=== PATIENT | male | born 1935 | race Caucasian/White ===

== ENCOUNTER 2020-04-08 17:37 | Emergency (ER) | payer MEDICARE, OTHER, SELFPAY ==
--- NOTE | ~2020-04-08 | XR_ITS ---
EXAMINATION: XR chest 1V portable EXAM DATE: 04/08/2020 19:17 INDICATION: Thinks chicken is stuck in throat. TECHNIQUE: Portable AP frontal chest x-ray was obtained. Comparison is made to prior examination from 08/18/2018. FINDINGS: There is mild cardiomegaly. Bibasilar linear atelectasis. No confluent consolidation, pneum othorax or pleural effusion suspected. There are bony degenerative changes. Accounting for difference s in technique, there is no significant interval change. IMPRESSION: Cardiomegaly. Bibasilar linear atelectasis. Reviewed, dictated and finalized at location A.
[2020-04-08 17:40] VITALS: BP 140/78; PULSE 70; RESP 20; TEMP 36.6; O2SAT 100
--- NOTE | 2020-04-08 18:56 | ECG_ITS ---
Measurements Intervals [place] Rate: 66 P: MT: 0 QRS: 9 QRSD: 102 T: 70 QT: 379 QTc: 398 Interpretive Statements ATRIAL FIBRILLATION BASELINE ARTIFACT- I, II, III, AVR, AVL, AVF ABNORMAL ECG Electronically Signed On 04-09-2020 7:31:09 CDT by Modesto Sagastume D.O.
--- NOTE | 2020-04-08 18:58 | ED.GENADULT ---
HPI - General Adult General Chief complaint: Unspecified <Briana Serrato MD - Last Filed: 04/08/20 19:30> Stated complaint: fb gi <Briana Serrato MD - Last Filed: 04/08/20 19:30> Time Seen by Provider: 04/08/20 18:47 <Briana Serrato MD - Last Filed: 04/08/20 19:30> Source: patient <Briana Serrato MD - Last Filed: 04/08/20 19:30> Mode of arrival: ambulatory <Briana Serrato MD - Last Filed: 04/08/20 19:30> Limitations: no limitations <Briana Serrato MD - Last Filed: 04/08/20 19:30> History of Present Illness HPI narrative: This patient is an 84 year old male who presents for evaluation of a food impaction.He states starting an 1.5 hour ago he was eating chicken and he started feeling like it was stuck. He reports he tried drinking water and milk, and he started vomiting. He reports he is spitting alot. He states this happened 2 years ago he was given a medication to relax his esophagus. He has history of an esophageal sphincter. He is also on coumadin. He denies sob but he does some discomfort epigastric mid chest. <Briana Serrato MD - Last Filed: 04/08/20 19:30> Related Data Home medications: Home Medications Medication Instructions Recorded Confirmed multivitamin 1 tablet PO DAILY 07/10/19 07/14/19 <Briana Serrato MD - Last Filed: 04/08/20 19:30> Allergies/adverse reactions: Allergies Allergy/AdvReac Type Severity Reaction Status Date / Time No Known Allergies Allergy Verified 01/12/20 09:15 <Briana Serrato MD - Last Filed: 04/08/20 19:30> Review of Systems Review of Systems: All systems reviewed & are unremarkable except as noted in HPI and below <Briana Serrato MD - Last Filed: 04/08/20 19:30> Constitutional: Constitutional: Denies chills and Denies fever(s) <Briana Serrato MD - Last Filed: 04/08/20 19:30> Respiratory: Respiratory: Denies cough and Denies dyspnea <Briana Serrato MD - Last Filed: 04/08/20 19:30> Gastrointestinal: Gastrointestinal: Reports nausea and Reports vomiting <Briana Serrato MD - Last Filed: 04/08/20 19:30> [facility] Past Medical History Medical History: Medical History (Updated 04/09/20 @ 00:00 by Randolph Cronin) Hyperlipidemia Paroxysmal atrial fibrillation Stage III chronic kidney disease <Briana Serrato MD - Last Filed: 04/08/20 19:30> Surgical History Surgical History: Surgical History (Reviewed 01/12/20 @ 09:16 by Azucena Mae [facility]) H/O colonoscopy H/O rectal polypectomy History of removal of skin mole <Briana Serrato MD - Last Filed: 04/08/20 19:30> Family History Family History: Family History (Reviewed 01/12/20 @ 09:16 by Azucena Mae [facility]) Father Family history of malignant neoplasm of bone Patient's father is Mother Family history of dementia Patient's mother is , Onset Age: 91 Other Family history of arthritis <Briana Serrato MD - Last Filed: 04/08/20 19:30> Social History Social History: Social History (Reviewed 01/12/20 @ 09:16 by Azucena Mae [facility]) Smoking status: Never smoker Alcohol intake: current Gender identity (if verbalized by the patient): Male <Briana Serrato MD - Last Filed: 04/08/20 19:30> Exam Const: General: alert <Briana Serrato MD - Last Filed: 04/08/20 19:30> Nutritional Appearance: thin <Briana Serrato MD - Last Filed: 04/08/20 19:30> Orientation/consciousness: patient oriented x3 <Briana Serrato MD - Last Filed: 04/08/20 19:30> HENMT: General nose exam: Normal nasal mucous membranes and turbinates present <Briana Serrato MD - Last Filed: 04/08/20 19:30> Face and sinus: face symmetric <Briana Serrato MD - Last Filed: 04/08/20 19:30> Mouth: Yes moist mucous membranes <Briana Serrato MD - Last Filed: 04/08/20 19:30> Throat: posterior oropharynx normal, tonsils normal and uvula midline <Briana Serrato
[2020-04-08] MEDS: ONDANSETRON INJ 4 MG/2 ML VIAL IV PUSH (19:19)
[2020-04-08] MEDS: GLUCAGON FOR INJ 1 MG VIAL IV PUSH (19:20)
[2020-04-08 19:37] LABS: Basophils Absolute Auto 0.1 K/mm3 (0.0-0.1); Basophils Percent Auto 0.8 % (0.2-1.2); Eosinophils Absolute Auto 0.2 K/mm3 (0-0.3); Eosinophils Percent Auto 2.1 % (0-4.4); Hematocrit 47.7 % (42.0-52.0); Hemoglobin 16.1 g/dL (14.0-18.0); Immature Granulocyte Absolute 0.04 K/mm3 (0.00-0.031); Immature Granulocyte Percent A 0.4 % (0-0.5); Lymphocytes Absolute Auto 1.28 K/mm3 (0.9-3.2); Lymphocytes Percent Auto 11.8 % (18.3-44.2); Mean Corpuscular HGB Conc 33.8 g/dl (32-36); Mean Corpuscular Hemoglobin 30.1 pg (26-34); Mean Corpuscular Volume 89.2 fl (80-100); Mean Platelet Volume 9.2 fl (7.4-10.4); Monocytes Absolute Auto 0.7 K/mm3 (0.1-0.6); Monocytes Percent Auto 6.6 % (2.6-8.5); Neutrophils Absolute Auto 8.5 K/mm3 (1.3-6.7); Neutrophils Percent Auto 78.3 % (45.5-73.1); Platelet Count Result 276 k/mm3 (150-375); Red Blood Count 5.35 M/mm3 (4.6-6.20); Red Cell Distribution Width 12.8 % (11.5-14.5); White Blood Count 10.9 K/mm3 (4.5-10.0)
[2020-04-08 19:47] LABS: INR 2.9; Prothrombin Time 29.7 Seconds (11.1-14.7)
[2020-04-08 19:48] LABS: Alanine Aminotransferase 25 U/L (4-50); Albumin Level 4.4 g/dL (3.5-5.1); Alkaline Phosphatase 91 U/L (38-126); Anion Gap 8 mmol/L (8-16); Aspartate Amino Transferase 27 U/L (17-59); Bilirubin,Total 0.6 mg/dL (0.2-1.3); Blood Urea Nitrogen 20 mg/dL (9-20); Calcium 10.1 mg/dL (8.4-10.2); Carbon Dioxide 25 mmol/L (22-30); Chloride 106 mmol/L (98-107); Estimated CRCL calculation 44 ml/min; Estimated Glomerular Filt Rate > 60; Glucose 118 mg/dL (75-110); Partial Thromboplastin Time 39.6 SECONDS (22.3-36.8); Potassium 4.3 mmol/L (3.4-5.0); Sodium 139 mmol/L (137-145)
[2020-04-08 21:13] VITALS: BP 151/76; PULSE 85; RESP 18; O2SAT 97
== END 2020-04-08 21:15 | disposition home or self-care (01) ==
PROVIDERS: General Practice; Emergency Provider Emergency Medicine; PCP Internal Medicine
DX: T18.128A Food in esophagus causing other injury, initial encounter (principal); E78.5 Hyperlipidemia, unspecified; I48.0 Paroxysmal atrial fibrillation; Z79.01 Long term (current) use of anticoagulants; N18.30 Chronic kidney disease, stage 3 unspecified; Z87.19 Personal history of other diseases of the digestive system
CPT/HCPCS: 36415; 71045; 80053; 85025; 85610; 85730; 93005; 96374; 96375; 99284; J1610; J2405

== ENCOUNTER 2020-06-11 01:21 | Outpatient (CLI) | payer MEDICARE, OTHER, SELFPAY ==
[2020-06-11 20:16] LABS: SARS-CoV-2 RNA PCR Negative
== END 2020-06-11 01:22 | disposition home or self-care (01) ==
LOC: ANHCOVIDDT 01:21
PROVIDERS: PCP Internal Medicine; Visit Provider Internal Medicine Gastroenterology
DX: Z01.818 Encounter for other preprocedural examination (principal); Z20.828 Contact with and (suspected) exposure to other viral communicable diseases
CPT/HCPCS: 87635; C9803; U0003

== ENCOUNTER 2020-06-14 01:51 | Day surgery (SDC) | payer MEDICARE, OTHER, SELFPAY ==
[2020-06-08 11:51] VITALS: BMI 23.4
[2020-06-14 08:43] VITALS: BP 136/85; PULSE 80; RESP 16; TEMP 36.2; O2SAT 100
[2020-06-14] MEDS: LACTATED RINGERS 1,000 ML 150 ML IV CONT (09:01)
--- NOTE | 2020-06-14 09:06 | WPDGICN ---
Assessment and Plan Assessment and plan (1) Dysphagia: Code(s): R13.10 - Dysphagia, unspecified Status: Acute Assessment and Plan: Patient has difficulty swallowing intermittently. Recently went to the ER with food impaction. He has a history of esophageal stricture requiring dilatation 1-2 years ago. Plan is for soft diet. Anti-reflux measures EGD will be performed. If it is confirmed to be secondary to acid reflux restarting proton pump inhibitors may be beneficial. (2) Paroxysmal atrial fibrillation: Code(s): I48.0 - Paroxysmal atrial fibrillation Status: Acute Assessment and Plan: Warfarin anticoagulation will be held in anticipation of endoscopy and dilatation. GI Consult Note Consult date/time: 06/14/20 09:06 HPI: Gregory Garcia is a 84 year old male Seen in evaluation at the request of Dr. Sawyer Iverson. Patient complains of food catching. On April 08 recur went to the ER because of a food impaction. At that time he had difficulty with solid foods. This passed spontaneously. 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 Patient denies any heartburn. He continues to have difficulty swallowing. Proton pump inhibitors were previously suggested but of subsequently been discontinued. Patient denies any weight loss or bleeding. He continues to have difficulty swallowing solid foods intermittently. Past medical history is significant for atrial fibrillation for which she is on warfarin anticoagulation. Review of Systems Review of Systems: All systems reviewed & are unremarkable except as noted in HPI and below PMFSH Past Medical History Medical History (Updated 06/14/20 @ 09:08 by Bryon Cheek MD) Hyperlipidemia Paroxysmal atrial fibrillation Stage III chronic kidney disease Surgical History Surgical History H/O colonoscopy H/O rectal polypectomy History of removal of skin mole Family History Family History Father Family history of malignant neoplasm of bone Patient's father is Mother Family history of dementia Patient's mother is , Onset Age: 91 Other Family history of arthritis Social History Social History Smoking status: Never smoker Alcohol intake: current Drinks per week: 4 Substance use: never Living arrangements: alone Gender identity (if verbalized by the patient): Male Spiritual care concerns: No Meds Home Medications and Allergies Home Medications Medication Instructions Recorded Confirmed Type multivitamin 1 tablet PO DAILY 07/10/19 06/14/20 History warfarin 6 mg tablet See Rx Instructions .ROUTE 04/18/20 06/14/20 Rx .COMPLEX #90 tablet lovastatin 20 mg tablet See Rx Instructions .ROUTE 05/30/20 06/14/20 Rx .COMPLEX #90 tablet Allergies Allergy/AdvReac Type Severity Reaction Status Date / Time No Known Allergies Allergy Verified 06/14/20 08:41 Vital Signs Vital Signs - 24 hr 06/14/20 08:43 Temperature 97.1 F L Pulse Rate 80 Respiratory Rate 16 Blood Pressure 136/85 Pulse Oximetry 100 Exam Narrative: Exam Narrative: physical exam reveals Vital Signs to be stable. HEENT exam unremarkable. Lungs are clear to auscultation and percussion. Heart is without murmur. His irregularly irregular. Abdomen bowel sounds are present soft nontender with no hepatosplenomegaly. Rectal exam is deferred at this time.
[2020-06-14 09:21] LABS: INR 1.1; Prothrombin Time 14.5 Seconds (11.1-14.7)
--- NOTE | 2020-06-14 09:25 | WPDANESEPPF ---
Anes - Initial Pre Proc Eval Procedure: Operation Date: 06/14/20 10:00 Proposed Procedures p Esophagogastroduodenoscopy - Bryon Cheek MD Date/Time: 06/14/20 09:25 Surgeon: Bryon Cheek MD Pre Op Diagnosis: Dysphagia Patient Data Age: 84 Gender: M Height: 5 ft 9 in Weight: 75.7 kg Last Vital Signs Temp 36.2 C L 06/14/20 08:43 Pulse 80 06/14/20 08:43 Resp 16 06/14/20 08:43 BP 136/85 06/14/20 08:43 Pulse Ox 100 06/14/20 08:43 Allergies Allergy/AdvReac Type Severity Reaction Status Date / Time No Known Allergies Allergy Verified 06/14/20 08:41 Home Medications Medication Instructions Recorded Confirmed Type multivitamin 1 tablet PO DAILY 07/10/19 06/14/20 History warfarin 6 mg tablet See Rx Instructions .ROUTE 04/18/20 06/14/20 Rx .COMPLEX #90 tablet lovastatin 20 mg tablet See Rx Instructions .ROUTE 05/30/20 06/14/20 Rx .COMPLEX #90 tablet Laboratory Tests 06/14/20 08:58 PT 14.5 Seconds Seconds (11.1-14.7) INR 1.1 Patient hx anesthesia problems: none Family hx anesthesia problems: none PMFSH Past Medical History Medical History Hyperlipidemia Paroxysmal atrial fibrillation Stage III chronic kidney disease Surgical History Surgical History H/O colonoscopy H/O rectal polypectomy History of removal of skin mole Family History Family History Father Family history of malignant neoplasm of bone Patient's father is Mother Family history of dementia Patient's mother is , Onset Age: 91 Other Family history of arthritis Social History Social History Smoking status: Never smoker Alcohol intake: current Drinks per week: 4 Substance use: never Living arrangements: alone Gender identity (if verbalized by the patient): Male Spiritual care concerns: No Anes - Eval Final PreProcedure Day of Procedure 06/14/20 09:25 Patient weight: normal Heart: irregular rhythm Lungs: clear to auscultation Airway: Mallampati scale class II Neurological: alert and oriented Last oral intake: >/= 8 hours ASA classification: III Emergent: no Anesthetic plan: proceed Anesthesia type and monitoring: general GIVS and standard monitoring Informed Consent: The patient's anesthetic plan and its attendant risks and benefits were discussed with the patient/family/POA. Questions were solicited and answers provided to the satisfaction of the patient/family/POA.
[2020-06-14] MEDS: BENZOCAINE (*SP) 60 ML SPRAY CAN (HURRICAINE) 1 SPRAY MUCOUS MEM (09:40)
[2020-06-14 09:50] VITALS: BP 127/68; PULSE 84; RESP 22; O2SAT 95
[2020-06-14 10:00] VITALS: BP 138/70; PULSE 86; RESP 25; O2SAT 100
[2020-06-14 10:10] VITALS: BP 135/68; PULSE 73; RESP 21; O2SAT 100
== END 2020-06-14 10:35 | disposition home or self-care (01) ==
PROVIDERS: PCP Internal Medicine; Visit Provider Internal Medicine Gastroenterology
PROC: 0DJ08ZZ Inspection of Upper Intestinal Tract, Via Natural or Artificial Opening Endoscopic (ICD-10-PCS; CPT 43235; principal; 2020-06-14 10:00)
DX: R13.10 Dysphagia, unspecified (principal); K21.00 Gastro-esophageal reflux disease with esophagitis, without bleeding; K22.2 Esophageal obstruction; Q39.4 Esophageal web; I48.0 Paroxysmal atrial fibrillation; Z79.01 Long term (current) use of anticoagulants; E78.5 Hyperlipidemia, unspecified; I48.91 Unspecified atrial fibrillation; N18.30 Chronic kidney disease, stage 3 unspecified
CPT/HCPCS: 43450; 43235; 36415; 85610; J2704; J7120

== ENCOUNTER 2022-11-27 09:15 | Outpatient (CLI) | payer MEDICARE, OTHER, SELFPAY ==
[2022-11-27 09:45] LABS: INR 1.4; Prothrombin Time 18.2 Seconds (11.1-14.7)
== END 2022-11-27 09:16 | disposition home or self-care (01) ==
PROVIDERS: PCP Family Medicine; Visit Provider Family Medicine
DX: Z79.01 Long term (current) use of anticoagulants (principal)
CPT/HCPCS: 36415; 85610

== ENCOUNTER 2024-04-14 08:13 | Outpatient (CLI) | payer MEDICARE, OTHER, SELFPAY | END 2024-04-14 08:14 | disposition home or self-care (01) | PROVIDERS: PCP Nurse Practitioner Family; Visit Provider Otolaryngology | DX: H61.23 Impacted cerumen, bilateral (principal); J31.0 Chronic rhinitis; H90.3 Sensorineural hearing loss, bilateral | CPT/HCPCS: 92557; 92567 ==

== ENCOUNTER 2024-09-29 16:34 | Emergency (ER) | payer MEDICARE, OTHER, SELFPAY ==
--- NOTE | ~2024-09-29 | CT_ITS ---
History: Fall PROCEDURE: CT head without contrast. COMPARISON: None TECHNIQUE: Axial imaging of the head performed from the skull base to the vertex without IV contrast. Sagittal a nd coronal reformations obtained. DLP: 681 mGy-cm FINDINGS: The ventricles are enlarged. The dilatation of the ventricles is proportional to the degree of sulcal prominence, not uncommon in the senescent brain. Decreased attenuation is identified within the periventricular white matter, likely secondary to micr ovascular ischemic disease, in a patient of this age. There is no mass, mass effect or midline shift. There is no abnormal extra-axial fluid collection or intracranial hemorrhage. Visualized paranasal sinuses are clear. The mastoid air cells are well aerated. No acute displaced fractures within the overlying cranium. Impression: No acute intracranial hemorrhage or suspicious mass effect. Reviewed, dictated and finalized at location A. Impression: No acute intracranial hemorrhage or suspicious mass effect.
--- NOTE | ~2024-09-29 | XR_ITS ---
HISTORY: injury COMPARISON: None TECHNIQUE: 3 views of the left hand were performed. FINDINGS: No acute fracture is identified. Gullwing deformity is identified within the proximal interphalangeal joint spaces of the second, thir d, fourth and fifth digits. The remaining joint spaces are otherwise preserved. The carpal arcs are intact. Mild radiocarpal joint space narrowing with sclerosis of the distal radius is present. Bony demineralization is age-appropriate. No significant soft tissue swelling. No radiopaque foreign body is identified. 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 Reviewed, dictated and finalized at location A. IMPRESSION: Degenerative disease, without acute fracture or dislocation within the left mathew d, as detailed above.
--- NOTE | ~2024-09-29 | XR_ITS ---
HISTORY: pt fell this afternoon COMPARISON: None TECHNIQUE: 3 views of the right elbow were performed. FINDINGS: No acute fracture is identified. No elevation of the anterior or posterior fat pads are identified to suggest a supracondylar fracture . Overlying soft tissues are unremarkable. Bone mineralization is age-appropriate. IMPRESSION: No acute displaced fracture or dislocation. Reviewed, dictated and finalized at location A.
--- NOTE | ~2024-09-29 | CT_ITS ---
History: Fall PROCEDURE: CT cervical spine without intravenous contrast. COMPARISON: None TECHNIQUE: Multiple contiguous axial images of the cervical spine were performed without the administration of i ntravenous contrast. DLP: 152 mGy-cm FINDINGS: Preservation of the normal curvature of the cervical spine is identified. Significant degenerative disease is identified, with osteophyte formation, disc space narrowing, face t arthropathy and vacuum phenomena. Heterogeneous appearance of the bone marrow is identified, suggesting diffuse systemic disease for wh ich clinical correlation is needed. No acute fractures are present. Right-sided pleural effusion is noted. No soft tissue abnormality is present. The airway is patent. Impression: Severe degenerative disease, without acute fracture. Heterogeneous appearance of the bone marrow suggesting a systemic disorder. Right-sided pleural effusion is noted. Reviewed, dictated and finalized at location A. Impression: Severe degenerative disease, without acute fracture. Heterogeneous appearance of the bone marrow suggesting a systemic disorder. Right-sided pleural effusion is noted.
--- NOTE | 2024-09-29 17:33 | ED.GENADULT ---
HPI - General Adult General Chief complaint: Fall <Ant Leyva MD - Last Filed: 09/30/24 07:31> Stated complaint: fall, takes blood thinner <Ant Leyva MD - Last Filed: 09/30/24 07:31> Time Seen by Provider: 09/29/24 16:47 <Ant Leyva MD - Last Filed: 09/30/24 07:31> History of Present Illness HPI narrative: 88-year-old male present to the emergency department for evaluation after having a ground level fall and increased generalized weakness. Family felt the patient was more confused than normal. Patient does have an abrasion to his left hand and a skin tear to his right elbow. <Ant Leyva MD - Last Filed: 09/30/24 07:31> Related Data Home medications: Home Medications ?Medication ?Instructions ?Recorded ?Confirmed ?Last Taken ?Type multivitamin (Daily Multi-Vitamin 1 tablet PO DAILY 07/10/19 09/02/24 06/13/20 18:00 History tablet) cholecalciferol (vitamin D3) 50 50 mcg PO DAILY 01/18/21 09/02/24 Unknown History mcg (2,000 unit) capsule (Vitamin D3) <Ant Leyva MD - Last Filed: 09/30/24 07:31> Allergies/adverse reactions: Allergies Allergy/AdvReac Type Severity Reaction Status Date / Time No Known Allergies Allergy Verified 09/29/24 16:35 <Ant Leyva MD - Last Filed: 09/30/24 07:31> Review of Systems Review of Systems: All systems reviewed & are unremarkable except as noted in HPI and below <Ant Leyva MD - Last Filed: 09/30/24 07:31> [facility] Past Medical History Medical History: Medical History Basal cell carcinoma removed 07/2023, right shoulder Hyperlipidemia Paroxysmal atrial fibrillation Stage III chronic kidney disease <Ant Leyva MD - Last Filed: 09/30/24 07:31> Surgical History Surgical History: Surgical History H/O rectal polypectomy H/O colonoscopy History of removal of skin mole <Ant Leyva MD - Last Filed: 09/30/24 07:31> Family History Family History: Family History Father Family history of malignant neoplasm of bone Patient's father is Mother Family history of dementia Patient's mother is , Onset Age: 91 Other Family history of arthritis <Ant Leyva MD - Last Filed: 09/30/24 07:31> Social History Social History: Social History Smoking status: Never smoker Second hand tobacco smoke exposure: Yes Alcohol intake: current Drinks per week: 4 Substance use: never Do You Feel Safe in your Home?: Yes Lack of Transportation: No Current Housing: Decline to Answer Concerned About Future Housing: Decline to Answer Difficulty Paying Gas/Electric Bills: Decline to Answer Difficulty Paying for Meds: Decline to Answer Currently Unemployed: Decline to Answer Difficulty w/ Childcare or Family Care: Decline to Answer Living arrangements: alone Occupation/Education: retired Gender identity (if verbalized by the patient): Male Spiritual care concerns: No Agree to blood products: Yes <Ant Leyva MD - Last Filed: 09/30/24 07:31> Exam Narrative: APPEARANCE: Well appearing, no pain, no distress, well-nourished. HEAD: normocephalic, atraumatic. EYES: PERRLA/EOMI, conjunctivae clear. NOSE: Normal no drainage EARS:TMS clear with good light reflex. THROAT: Pharynx clear, no exudate. NECK: Supple. No adenopathy, no masses. RESPIRATORY: Airway patent, respirations nonlabored. Clear to auscultation bilaterally, no rales, rhonchi, wheezing. CARDIOVASCULAR: Regular rate and rhythm without murmurs rubs or gallops. ABDOMINAL: Soft, nontender, nondistended, normal bowel sounds MUSCULOSKELETAL: Moves all extremities. Strength/ROM intact, No edema, No calf tenderness. NEURO: Alert. Cranial nerves II through XII intact. Grossly intact SKIN: Abrasion to left hand and skin tear to right elbow <Ant Leyva MD - Last Filed: 09/30/24 07:31> Course Course Emergency Course: Patient signed out by Dr. Leyva at 7:00 p.m. pending urinalysis and discharge home. I went and re-evaluated the patient. He was otherwise doing well, not any acute distress, normal vital signs. Does have some skin tears that were bandaged but no other injuries appreciated. Workup by previous provider shows no significant findings on imaging or significant derangements on lab. He normally frequently goes to the bathroom secondary to prostatic issues but did require straight catheterization here. Reportedly some minor resistance, urinalysis does have some red blood cells likely from a traumatic catheterization but there is no signs of white blood cells or any signs of infection with bacteria. Patient denies any urinary complaints and he has a soft nontender belly. Patient was ambulated here in the emergency department with his normal devices including a cane and a walker which he has at home. Patient was doing very well and family felt comfortable with taking him home with close follow-up with his primary care provider. They are already working on physical therapy on outpatient basis and were given return precautions worse they verbalized understanding. Patient safely discharged at this time. <Doroteo Farah MD - Last Filed: 09/29/24 22:24> Vital Signs Vital signs: Vital Signs Blood Pressure 157/78 H 09/29/24 17:35 Pulse Oximetry 98 09/29/24 17:35 Temperature 98.7 F 09/29/24 22:21 Pulse Rate 100 09/29/24 22:21 Respiratory Rate 22 H 09/29/24 22:21 Blood Pressure 145/85 H 09/29/24 22:21 Pulse Oximetry 96 09/29/24 22:21 <Ant Leyva MD - Last Filed: 09/30/24 07:31> Vital Signs Blood Pressure 157/78 H 09/29/24 17:35 Pulse Oximetry 98 09/29/24 17:35 Temperature 98.7 F 09/29/24 22:21 Pulse Rate 100 09/29/24 22:21 Respiratory Rate 22 H 09/29/24 22:21 Blood Pressure 145/85 H 09/29/24 22:21 Pulse Oximetry 96 09/29/24 22:21 <Doroteo Farah MD - Last Filed: 09/29/24 22:24> Medical Decision Making MDM Narrative Medical decision making narrative: 80-year-old male presents emergency department for evaluation after having a ground level fall, family felt that the patient was more confused than typical. Patient is currently afebrile with no leukocytosis and hemoglobin of 12.8. No significant acute abnormalities on the patient's CMP patient was negative for influenza RSV and for COVID. Hand x-ray, although x-ray, cervical spine CT and head CT were negative. At time of sign-out UA is pending. Anticipated disposition is discharge to home if UA is negative and patient is able to ambulate at his baseline. <Ant Leyva MD - Last Filed: 09/30/24 07:31> Vital Signs Vital Signs: Vital Signs Blood Pressure 157/78 H 09/29/24 17:35 Pulse Oximetry 98 09/29/24 17:35 Temperature 98.7 F 09/29/24 22:21 Pulse Rate 100 09/29/24 22:21 Respiratory Rate 22 H 09/29/24 22:21 Blood Pressure 145/85 H 09/29/24 22:21 Pulse Oximetry 96 09/29/24 22:21 <Ant Leyva MD - Last Filed: 09/30/24 07:31> Vital Signs Blood Pressure 157/78 H 09/29/24 17:35 Pulse Oximetry 98 09/29/24 17:35 Temperature 98.7 F 09/29/24 22:21 Pulse Rate 100 09/29/24 22:21 Respiratory Rate 22 H 09/29/24 22:21 Blood Pressure 145/85 H 09/29/24 22:21 Pulse Oximetry 96 09/29/24 22:21 <Dortoeo Farah MD - Last Filed: 09/29/24 22:24> Lab Data Result diagrams: 09/29/24 17:53 09/29/24 17:54 <Ant Leyva MD - Last Filed: 09/30/24 07:31> Labs: Lab Results 09/29/24 09/29/24 09/29/24 Range/Units 17:53 17:54 20:47 WBC 8.3 (4.5-10.0) K/mm3 RBC 4.28 L (4.6-6.20) M/mm3 Hgb 12.8 L D (14.0-18.0) g/dL Hct 40.2 L (42.0-52.0) % MCV 93.9 (80-100) fl MCH 29.9 (26-34) pg MCHC 31.8 L (32-36) g/dl RDW 14.2 (11.5-14.5) % Plt Count 332 (150-375) k/mm3 MPV 9.2 (7.4-10.4) fl Immature Gran % (Auto) 0.5 (0-0.5) % Neut % (Auto) 80.9 H (45.5-73.1) % Lymph % (Auto) 8.8 L (18.3-44.2) % [place] % (Auto) 9.0 H (2.6-8.5) % Eos % (Auto) 0.2 (0-4.4) % Baso % (Auto) 0.6 (0.2-1.2) % Lymph # (Auto) 0.73 L (0.9-3.2) K/mm3 [place] # (Auto) 0.8 H (0.1-0.6) K/mm3 Eos # (Auto) 0.0 (0-0.3) K/mm3 Baso # (Auto) 0.1 (0.0-0.1) K/mm3 Abs Immat Gran (auto) 0.04 H (0.00-0.031) K/mm3 Absolute Neuts (auto) 6.7 (1.3-6.7) K/mm3 Absolute Nucleated RBC 0.000 (0.0-0.012) K/mm3 Nucleated RBC % 0.0 (0.0-0.2) % Sodium 138 (137-145) mmol/L Potassium 4.4 (3.4-5.0) mmol/L Chloride 102 (98-107) mmol/L Carbon Dioxide 24 (22-30) mmol/L Anion Gap 12 (4-12) mmol/L BUN 36 H D (9-20) mg/dL Creatinine 1.35 H (0.7-1.3) mg/dL Estim Creat Clear Calc Not Reportable Estimated GFR 50 L (59 - ) Glucose 82 (65-110) mg/dL Calcium 9.4 (8.4-10.2) mg/dL Total Bilirubin 0.6 (0.2-1.3) mg/dL AST 84 H (17-59) U/L ALT 36 (6-50) U/L Alkaline Phosphatase 91 (38-126) U/L Total Protein 7.0 (6.3-8.2) g/dL Albumin 3.9 (3.5-5.1) g/dL Urine Color Yellow (Yellow) Urine Appearance Cloudy H (Clear) Urine pH 6.5 (5.0-9.0) Ur Specific [place] 1.016 (1.001-1.035) Urine Protein 1+ H (Negative) mg/dL Urine Glucose (UA) Negative (Negative) mg/dL Urine Ketones Negative (Negative) mg/dL Ur Blood (Man) 3+ H (Negative) Urine Nitrate Negative (Negative) Urine Bilirubin Negative (Negative) Urine Urobilinogen 0.2 (<2.0) mg/dL Leukocyte Esterase Rfl Trace H (Negative) ROYA/UL Urine RBC >100 H (0-2) /hpf Urine WBC 0-5 (0-3) /hpf Ur Squamous Epith Cells Occasional (Few) /hpf Urine Bacteria None seen /hpf Urine Casts 0-2 Influenza A (RT-PCR) Negative (Negative) Influenza B (RT-PCR) Negative (Negative) RSV (RT-PCR) Negative (Negative) SARS-CoV-2 RNA (RT-PCR) Negative (Negative) <Ant Leyva MD - Last Filed: 09/30/24 07:31> Lab Results 09/29/24 09/29/24 09/29/24 Range/Units 17:53 17:54 20:47 WBC 8.3 (4.5-10.0) K/mm3 RBC 4.28 L (4.6-6.20) M/mm3 Hgb 12.8 L D (14.0-18.0) g/dL Hct 40.2 L (42.0-52.0) % MCV 93.9 (80-100) fl MCH 29.9 (26-34) pg MCHC 31.8 L (32-36) g/dl RDW 14.2 (11.5-14.5) % Plt Count 332 (150-375) k/mm3 MPV 9.2 (7.4-10.4) fl Immature Gran % (Auto) 0.5 (0-0.5) % Neut % (Auto) 80.9 H (45.5-73.1) % Lymph % (Auto) 8.8 L (18.3-44.2) % [place] % (Auto) 9.0 H (2.6-8.5) % Eos % (Auto) 0.2 (0-4.4) % Baso % (Auto) 0.6 (0.2-1.2) % Lymph # (Auto) 0.73 L (0.9-3.2) K/mm3 [place] # (Auto) 0.8 H (0.1-0.6) K/mm3 Eos # (Auto) 0.0 (0-0.3) K/mm3 Baso # (Auto) 0.1 (0.0-0.1) K/mm3 Abs Immat Gran (auto) 0.04 H (0.00-0.031) K/mm3 Absolute Neuts (auto) 6.7 (1.3-6.7) K/mm3 Absolute Nucleated RBC 0.000 (0.0-0.012) K/mm3 Nucleated RBC % 0.0 (0.0-0.2) % Sodium 138 (137-145) mmol/L Potassium 4.4 (3.4-5.0) mmol/L Chloride 102 (98-107) mmol/L Carbon Dioxide 24 (22-30) mmol/L Anion Gap 12 (4-12) mmol/L BUN 36 H D (9-20) mg/dL Creatinine 1.35 H (0.7-1.3) mg/dL Estim Creat Clear Calc Not Reportable Estimated GFR 50 L (59 - ) Glucose 82 (65-110) mg/dL Calcium 9.4 (8.4-10.2) mg/dL Total Bilirubin 0.6 (0.2-1.3) mg/dL AST 84 H (17-59) U/L ALT 36 (6-50) U/L Alkaline Phosphatase 91 (38-126) U/L Total Protein 7.0 (6.3-8.2) g/dL Albumin 3.9 (3.5-5.1) g/dL Urine Color Yellow (Yellow) Urine Appearance Cloudy H (Clear) Urine pH 6.5 (5.0-9.0) Ur Specific [place] 1.016 (1.001-1.035) Urine Protein 1+ H (Negative) mg/dL Urine Glucose (UA) Negative (Negative) mg/dL Urine Ketones Negative (Negative) mg/dL Ur Blood (Man) 3+ H (Negative) Urine Nitrate Negative (Negative) Urine Bilirubin Negative (Negative) Urine Urobilinogen 0.2 (<2.0) mg/dL Leukocyte Esterase Rfl Trace H (Negative) ROYA/UL Urine RBC >100 H (0-2) /hpf Urine WBC 0-5 (0-3) /hpf Ur Squamous Epith Cells Occasional (Few) /hpf Urine Bacteria None seen /hpf Urine Casts 0-2 Influenza A (RT-PCR) Negative (Negative) Influenza B (RT-PCR) Negative (Negative) RSV (RT-PCR) Negative (Negative) SARS-CoV-2 RNA (RT-PCR) Negative (Negative) <Doroteo Farah MD - Last Filed: 09/29/24 22:24> Discharge Plan Discharge Clinical Impression: Head injury, Skin tear, Abrasion of hand <Ant Leyva MD - Last Filed: 09/30/24 07:31> Patient Disposition: Home, Self-Care <Ant Leyva MD - Last Filed: 09/30/24 07:31> Condition: Stable <Ant Leyva MD - Last Filed: 09/30/24 07:31> Instructions: Antibiotic Form <Ant Leyva MD - Last Filed: 09/30/24 07:31> Patient Language: Kinyarwanda <Ant Leyva MD - Last Filed: 09/30/24 07:31> Prescriptions: No Action omeprazole 40 mg capsule,delayed release(DR/EC) 40 mg PO DAILY Qty: 90 1RF multivitamin [Daily Multi-Vitamin] Tablet 1 tablet PO DAILY cholecalciferol (vitamin D3) [Vitamin D3] 50 mcg (2,000 unit) capsule 50 mcg PO DAILY lovastatin 20 mg tablet See Rx Instructions .ROUTE .COMPLEX Qty: 90 1RF Dose Instruction: TAKE 1 TABLET BY MOUTH EVERY DAY Rx Instructions: TAKE 1 TABLET BY MOUTH EVERY DAY warfarin 6 mg tablet See Rx Instructions .ROUTE .COMPLEX Qty: 90 0RF Dose Instruction: TAKE 1 TABLET BY MOUTH ON MONDAYS, WEDNESDAYS AND FRIDAYS, THEN 1/2 A TABLET ON ALL OTHER DAYS Rx Instructions: TAKE 1 TABLET BY MOUTH ON MONDAYS, WEDNESDAYS AND FRIDAYS, THEN 1/2 A TABLET ON ALL OTHER DAYS <Ant Leyva MD - Last Filed: 09/30/24 07:31> Follow-up/Referrals: Suze Yates APRN [Primary Care Provider] - <Ant Leyva MD - Last Filed: 09/30/24 07:31> Time of Disposition: 22:21 <Ant Leyva MD - Last Filed: 09/30/24 07:31> 22:21 <Doroteo Farah MD - Last Filed: 09/29/24 22:24>
--- OUTSIDE RECORDS SUMMARY | 2024-09-29 17:33 | XMS_ITS | Encounter Summary ---
Author Organization [facility] Address [address] [place] [address] Care Team Providers Care Diamond Die Polisher Name Role Phone Bernabe Casper MD Primary Care Provider [phone] Encounter Details Date Type Department Care Team (Late st Contact Info) Description 04/13/2022 Lab Requisition [facility] Care DermPath Lab [address] [place] [phone] Caesar Robbins MD [facility] [place] [address] Social History Tobacco Use Types Packs/Day Years Used Date Smoking Tobacco: Never Alcohol Use Standard Drinks/Week Comments Yes 5 (1 standard drink = 0.6 oz pur e alcohol) Sex and Gender Information Value Date Recorded Sex Assigned at Not on file Gender Identity Not on file Sexual Orientation Not on file documented as of this encounter Plan of Treatment Not on file documented as of this encounter Procedures Procedure Name Priority Date/Time Associated Diagnosis Comments DERMATOPATHOLOGY Routine 04/12/2022 12:0 0 AM CDT documented in this encounter Results * DERMATOPATHOLOGY (04/12/2022 12:00 AM CDT) Case Report Dermatopathology Report Case: [id number] Authorizing Provider: Caesar Robbins MD Collected: 04/12/2022 12:00 AM Ordering Location: [facility] Lab Received: 04/13/2022 06:08 AM Pathologist: Macarena Horta MD Specimen: Skin, right lateral forehead 1:50 PM CDT DERMATOPATHOLOGY LABORATORY Amended Report Change Site A from right mid forehead to right lateral forehead. 1:50 PM CDT DERMATOPATHOLOGY LABORATORY Final Diagnosis Specimen A. 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 Check margins 1:50 PM CDT DERMATOPATHOLOGY LABORATORY Gross Description Specimen A: Received is one formalin filled container labeled with the patient's name and designated right lateral forehead. The specimen consists of a curettage and desiccation biopsy measuring 10x6x2 mm, inked. Jar 0. 1:50 PM CDT DERMATOPATHOLOGY LABORATORY Microscopic Description Specimen A. SKIN, right lateral forehead: The epidermis shows parakeratosis, full thickness disorderly maturation of keratinocytes, mitoses at different levels, and dyskeratotic cells. This lesion is not present at the sampled margin of the specimen. There are fibroblasts and collagen bundles oriented parallel to the skin surface with elongated blood vessels, some of which are oriented perpendicular to the skin surface. 1:50 PM CDT DERMATOPATHOLOGY LABORATORY Disclaimer An external and internal positive and negative controls are appropriate for the histochemical, immunohistochemical and immunofluorescence stain(s) in this case (if any), except where stated explicitly. The performance characteristics of the stain(s) cited in this report were developed and its performance characteristic determined by the Dermatopathology Laboratory at [facility], directed by Dr. Ruth Garcia. These tests need not be, and therefore are not, approved by the [place] Food and Drug Administration. The tests are used for clinical purposes. Billing Codes Specimen Charges Stain Charges 93302 1 2 1:50 PM CDT DERMATOPATHOLOGY LABORATORY Embedded Images 2 1:50 PM CDT DERMATOPATHOLOGY LABORATORY Pathology/Cytolog y TISSUE SPECIMEN FROM SKIN / Unknown 04/12/2022 04/13/2022 6:08 AM CDT Caesar Robbins MD LAB - PATHOLOGY/CYTO LOGY ORDERABLES DERMATOPATHOLOGY LABORATORY [facility] - Department of Dermatology [facility] [address] [place] [address], [address] [phone] documented in this encounter Visit Diagnoses Not on filedocumented in this encounter Care Teams Diamond Die Polisher Relationship Specialty Start Date End Date Bernabe Casper MD [address] [place] [address] PCP - General 04/14/08 documented as of this encounter
--- OUTSIDE RECORDS SUMMARY | 2024-09-29 17:33 | XMS_ITS | Encounter Summary ---
Author Organization [facility] Address [address] [place] [address] Care Team Providers Care Faro Dealer Name Role Phone Bernabe Casper MD Primary Care Provider [phone] Encounter Details Date Type Department Care Team (Late st Contact Info) Description 07/31/2023 Lab Requisition [facility] - DermPath Lab [address] [facility] [facility] [place] [phone] Caesar Robbins MD [address] [place] [address] Social History Tobacco Use Types [...] Priority Date/Time Associated Diagnosis Comments DERMATOPATHOLOGY Routine 07/30/2023 3:33 AM PROFESSIONAL CASTER documented in this encounter Results * DERMATOPATHOLOGY (07/30/2023 3:33 AM PROFESSIONAL CASTER) Case Report Dermatopathology Report [id number]: [id number] Authorizing Provider: Caesar Robbins MD Collected: 07/30/2023 03:33 AM Ordering Location: [facility] DermPath Lab Received: 07/31/2023 09:09 AM Pathologist: Vani Higuera MD Specimen: Skin, right sup shoulder 5:22 PM [facility] DERMATOPATHOLOGY LABORATORY Final Diagnosis Specimen A. 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 The specimen consists of a shave biopsy measuring 11x8x1 mm. Jar 0. 5:22 PM [facility] DERMATOPATHOLOGY LABORATORY Microscopic Description Specimen A. SKIN, right sup shoulder: Within the dermis there are aggregates of basaloid cells with a high nuclear to cytoplasmic ratio and peripheral palisading. 5:22 PM [facility] DERMATOPATHOLOGY LABORATORY Disclaimer An external and internal positive and negative controls are appropriate for the histochemical, immunohistochemical and immunofluorescence stain(s) in this case (if any), except where stated explicitly. The performance characteristics of the stain(s) cited in this report were developed and its performance characteristic determined by the Dermatopathology Laboratory at [facility], directed by Dr. Ruth Garcia. These tests need not be, and therefore are not, approved by the [place] Food and Drug Administration. The tests are used for clinical purposes. Billing Codes Specimen Charges Stain Charges 12775 1 4 5:22 PM [facility] DERMATOPATHOLOGY LABORATORY Embedded Images 4 5:22 PM [facility] DERMATOPATHOLOGY LABORATORY Pathology/Cytolo gy TISSUE SPECIMEN FROM SKIN / Unknown 07/30/2023 3:33 AM PROFESSIONAL CASTER 07/31/2023 9:09 AM PROFESSIONAL CASTER Caesar Robbins MD LAB - PATHOLOGY/CYTO LOGY ORDERABLES DERMATOPATHOLOGY LABORATORY [facility] - Department of Dermatology [address] [phone] documented in this encounter Visit Diagnoses Not on filedocumented in this encounter Care Teams Faro Dealer Relationship Specialty Start Date End Date Bernabe Casper MD [address] [facility] [address] [place] [address] PCP - General 04/14/08 documented as of this encounter
--- OUTSIDE RECORDS SUMMARY | 2024-09-29 17:33 | XMS_ITS | Encounter Summary ---
Author Organization [facility] Address [address] [place] [address] Care Team Providers Care Director Of Application Development Name Role Phone Bernabe Casper MD Primary Care Provider [phone] Encounter Details Date Type Department Care Team (Late st Contact Info) Description 08/20/2023 Lab Requisition [facility] - DermPath Lab [address] [facility] [place] [phone] Caesar Robbins MD [address] [place] [address] Social History Tobacco Use Types [...] Priority Date/Time Associated Diagnosis Comments DERMATOPATHOLOGY Routine 08/20/2023 3:33 AM BANKING MANAGER documented in this encounter Results * DERMATOPATHOLOGY (08/20/2023 3:33 AM BANKING MANAGER) Case Report Dermatopathology Report Case: [id number] Authorizing Provider: Caesar Robbins MD Collected: 08/20/2023 03:33 AM Ordering Location: [facility] DermPath Lab Received: 08/20/2023 03:43 PM Pathologist: Gama Garcia MD Specimen: Skin, right sup shoulder 2:58 PM [facility] DERMATOPATHOLOGY LABORATORY Final Diagnosis Specimen A. SKIN, right sup shoulder: HEALING SKIN CHANGES (L90.5) 2:58 PM [facility] DERMATOPATHOLOGY LABORATORY Clinical History [id number] 2:58 PM [facility] DERMATOPATHOLOGY LABORATORY Gross Description Specimen A: Received is one formalin filled container labeled with the patient's name and designated right sup shoulder. The specimen consists of a(2) pieces shave biopsy measuring 9x8x1, 8x5x1 mm. Jar 0. 2:58 PM [facility] DERMATOPATHOLOGY LABORATORY Microscopic Description Specimen A. SKIN, right sup shoulder: There is epidermal hyperplasia beneath which there are vascular proliferation, fibroblasts, and an edematous stroma. 2:58 PM [facility] DERMATOPATHOLOGY LABORATORY Disclaimer An external and internal positive and negative controls are appropriate for the histochemical, immunohistochemical and immunofluorescence stain(s) in this case (if any), except where stated explicitly. The performance characteristics of the stain(s) cited in this report were developed and its performance characteristic determined by the Dermatopathology Laboratory at [facility], directed by Dr. Ruth Garcia. These tests need not be, and therefore are not, approved by the [place] Food and Drug Administration. The tests are used for clinical purposes. Billing Codes Specimen Charges Stain Charges 00855 1 4 2:58 PM [facility] DERMATOPATHOLOGY LABORATORY Embedded Images 2:58 PM [facility] DERMATOPATHOLOGY LABORATORY Pathology/Cytolo gy TISSUE SPECIMEN FROM SKIN / Unknown 08/20/2023 3:33 AM BANKING MANAGER 08/20/2023 3:43 PM BANKING MANAGER Caesar Robbins MD LAB - PATHOLOGY/CYTO LOGY ORDERABLES DERMATOPATHOLOGY LABORATORY [facility] - Department of Dermatology [address], [address] [phone] documented in this encounter Visit Diagnoses Not on filedocumented in this encounter Care Teams Director Of Application Development Relationship Specialty Start Date End Date Bernabe Casper MD [address] [facility] [address] [place] [address] PCP - General 04/14/08 documented as of this encounter
--- OUTSIDE RECORDS SUMMARY | 2024-09-29 17:33 | XMS_ITS | Encounter Summary ---
Author Organization [facility] Address [address] [place] [address] Care Team Providers Care Outsole Compressor Name Role Phone Bernabe Casper MD Primary Care Provider [phone] Encounter Details Date Type Department Care Team (Late st Contact Info) Description 03/14/2022 Lab Requisition [facility] Care DermPath Lab [address] [address] [facility] [address], [place] [id number] Caesar Robbins MD [facility] [place] [address] Social History Tobacco Use Types [...] Priority Date/Time Associated Diagnosis Comments DERMATOPATHOLOGY Routine 03/14/2022 12:0 0 AM CDT documented in this encounter Results * DERMATOPATHOLOGY (03/14/2022 12:00 AM CDT) Case Report Dermatopathology Report Case: [id number] Authorizing Provider: Caesar Robbins MD Collected: 03/14/2022 12:00 AM Ordering Location: [facility] DermPath Lab Received: 03/14/2022 04:06 PM Pathologist: Vani Higuera MD Specimens: A) - Skin, right lat forehead B) - Skin, left upper nasal 3:26 PM T DERMATOPATHOLOGY LABORATORY Final Diagnosis Specimen A. 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 SKIN, left upper nasal: ACTINIC KERATOSIS (L57.0) EPIDERMAL NECROSIS SUGGESTIVE OF EXCORIATION (L98.499) (see microscopic description) 2 3:26 PM T DERMATOPATHOLOGY LABORATORY Clinical History A: R/O Mansfield's B: R/O SCC 3:26 PM CDT DERMATOPATHOLOGY LABORATORY Gross Description Specimen A: Received is one formalin filled container labeled with the patient's name and designated right lat forehead. The specimen consists of a shave biopsy measuring 8x5x1 mm. Jar 0. Specimen B: Received is one formalin filled container labeled with the patient's name and designated left upper nasal. The specimen consists of a shave biopsy measuring 9x8x2 mm. Jar 0. 3:26 PM T DERMATOPATHOLOGY LABORATORY Microscopic Description Specimen A. SKIN, right lat forehead: The epidermis shows parakeratosis, full thickness disorderly maturation of keratinocytes, mitoses at different levels, and dyskeratotic cells. Specimen B. SKIN, left upper nasal: There is focal parakeratosis. The lower half of the epidermis shows disorderly maturation of keratinocytes with nuclear pleomorphism. Adnexal extension of the lesion is seen. The epidermis is focally necrotic and covered with a scale-crust. There is fibrin at the base. 3:26 PM CDT DERMATOPATHOLOGY LABORATORY Disclaimer An external and internal positive and negative controls are appropriate for the histochemical, immunohistochemical and immunofluorescence stain(s) in this case (if any), except where stated explicitly. The performance characteristics of the stain(s) cited in this report were developed and its performance characteristic determined by the Dermatopathology Laboratory at [facility], directed by Dr. Ruth Garcia. These tests need not be, and therefore are not, approved by the [place] Food and Drug Administration. The tests are used for clinical purposes. Billing Codes Specimen Charges Stain Charges 78143 52755 1 1 2 3:26 PM CDT DERMATOPATHOLOGY LABORATORY Embedded Images 2 3:26 PM CDT DERMATOPATHOLOGY LABORATORY Pathology/Cytology TISSUE SPECIMEN FROM SKIN / Unknown 03/14/2022 03/14/2022 4:06 PM CDT Miscellaneous samples (specimen) TISSUE SPECIMEN FROM SKIN / Unknown 03/14/2022 03/14/2022 4:06 PM CDT Caesar Robbins MD LAB - PATHOLOGY/CYTO LOGY ORDERABLES DERMATOPATHOLOGY LABORATORY [facility] - Department of Dermatology [address], [address] [phone] documented in this encounter Visit Diagnoses Not on filedocumented in this encounter Care Teams Outsole Compressor Relationship Specialty Start Date End Date Bernabe Casper MD [address] [facility] [address] [place] [address] PCP - General 04/14/08 documented as of this encounter
--- OUTSIDE RECORDS SUMMARY | 2024-09-29 17:33 | XMS_ITS | Clinical Summary ---
Author Organization [facility] Address [address] [place] [address] Care Team Providers Care Machine Shop Lead Man Name Role Phone Bernabe Casper MD Primary Care Provider [phone] Source Comments [facility],non-[facility] Affiliates and Associated Physician Practices is amultiple site organization consisting of ambulatory clinics and hospital sitesin [place], [place], [place] and [place]. This disclosure is being madepursuant to the Care Everywhere program and may not contain all information available regarding this patient. Last updated 18.[facility] Social History Tobacco Use Types Packs/Day Years Used Date Smoking Tobacco: Never Alcohol Use Standard Drinks/Week Comments Yes 5 (1 standard drink = 0.6 oz pur e alcohol) Sex and Gender Information Value Date Recorded Sex Assigned at Not on file Gender Identity Not on file Sexual Orientation Not on file Last Filed Vital Signs Vital Sign Reading Time Taken Comments Blood Pressure 141/83 02/27/2013 11:57 AM CDT Pulse 88 02/27/2013 11:57 AM CDT Temperature - - Respiratory Rate - - Oxygen Saturation - - Inhaled Oxygen Concentration - - Weight 85.7 kg (189 lb) 02/27/2013 11:57 AM CDT Height - - Body Mass Index - - Plan of Treatment Health Maintenance Due Date Last Done Comments MEDICARE AWV 12 MONTHS 1935 DTAP/TDAP/TD VACCINES (1 - Tdap) 12/05/1954 PNEUMOCOCCAL VACCINE 50+ (1 of 1 - PCV) 12/05/1985 ZOSTER VACCINE (1 of 2) 12/05/1985 Respiratory Syncytial Virus (RSV) Vaccine Pt: or over 60 yrs (1 - 1-dose 75+ series) 12/05/2010 COVID-19 VACCINE ( - 2023-2 5 season) 2024 INFLUENZA VACCINE (#1) 2024 DEPRESSION SCREENING 07/01/2024 HEPATITIS B VACCINE Aged Out No longe r eligible based on patient's age to complete this topic HIB VACCINE Aged Out No longer eligi ble based on patient's age to complete this topic HPV VACCINE Aged Out No longer eligi ble based on patient's age to complete this topic MENINGOCOCCAL (Group B) VACC INE SHARED DECISION-MAKING Aged Out No longer eligibl e based on patient's age to complete this topic MENINGOCOCCAL GROUPS A/C/Y/W VACCINE Aged Out No longer eligible b ased on patient's age to complete this topic Care Teams Machine Shop Lead Man Relationship Specialty Start Date End Date Bernabe Casper MD [address] [facility] [address] [facility] [address] [place] [id number] PCP - General 04/14/08
[2024-09-29 17:35] VITALS: BP 157/78; O2SAT 98
[2024-09-29 17:46] VITALS: BP 141/61; O2SAT 97
--- NOTE | 2024-09-29 17:57 | ECG_ITS ---
Test Date: 2024-09-29 18:01:03 Measurements Intervals [place] Rate: 96 P: 0 AL: 0 QRS: 35 QRSD: 110 T: -16 QT: 363 QTc: 461 Interpretive Statements ATRIAL FIBRILLATION WITH ABERRANT CONDUCTION OR VENTRICULAR PREMATURE COMPLEXES NONSPECIFIC ST & T-WAVE ABNORMALITY- INF/LAT LEADS BASELINE ARTIFACT- I, II, III, AVR, AVL, AVF, V3-V6 ABNORMAL ECG No previous ECG available for comparison Electronically Signed On 09-29-2024 20:41:47 CDT by Modesto Sagastume D.O.
[2024-09-29 18:01] VITALS: BP 149/63; O2SAT 99
[2024-09-29 18:02] LABS: Basophils Absolute Auto 0.1 K/mm3 (0.0-0.1); Basophils Percent Auto 0.6 % (0.2-1.2); Eosinophils Percent Auto 0.2 % (0-4.4); Hematocrit 40.2 % (42.0-52.0); Hemoglobin 12.8 g/dL (14.0-18.0); Immature Granulocyte Absolute 0.04 K/mm3 (0.00-0.031); Immature Granulocyte Percent A 0.5 % (0-0.5); Lymphocytes Absolute Auto 0.73 K/mm3 (0.9-3.2); Lymphocytes Percent Auto 8.8 % (18.3-44.2); Mean Corpuscular HGB Conc 31.8 g/dl (32-36); Mean Corpuscular Hemoglobin 29.9 pg (26-34); Mean Corpuscular Volume 93.9 fl (80-100); Mean Platelet Volume 9.2 fl (7.4-10.4); Monocytes Absolute Auto 0.8 K/mm3 (0.1-0.6); Neutrophils Absolute Auto 6.7 K/mm3 (1.3-6.7); Neutrophils Percent Auto 80.9 % (45.5-73.1); Platelet Count Result 332 k/mm3 (150-375); Red Blood Count 4.28 M/mm3 (4.6-6.20); Red Cell Distribution Width 14.2 % (11.5-14.5); White Blood Count 8.3 K/mm3 (4.5-10.0)
[2024-09-29 18:14] LABS: Alanine Aminotransferase 36 U/L (6-50); Albumin Level 3.9 g/dL (3.5-5.1); Alkaline Phosphatase 91 U/L (38-126); Anion Gap 12 mmol/L (4-12); Aspartate Amino Transferase 84 U/L (17-59); Bilirubin,Total 0.6 mg/dL (0.2-1.3); Blood Urea Nitrogen 36 mg/dL (9-20); Calcium 9.4 mg/dL (8.4-10.2); Carbon Dioxide 24 mmol/L (22-30); Chloride 102 mmol/L (98-107); Estimated Glomerular Filt Rate 50; Glucose 82 mg/dL (65-110); Potassium 4.4 mmol/L (3.4-5.0); Sodium 138 mmol/L (137-145)
--- NOTE | 2024-09-29 18:15 | PC.NURSE ---
late note due to patient care: pt noted to be in afib on pulse ox would drop into 30's for HR and then come back up to 90's. Pt with history of afib on warfarin per family. MD Leyva notified in person and EKG orders obtained. Pt placed on cardiac exercise physiologist.
[2024-09-29 18:38] LABS: Influenza A QL RT-PCR Negative (Negative); Influenza B QL RT-PCR Negative (Negative); RSV RNA, RT-PCR Negative (Negative); SARS-CoV-2 RNA PCR Negative (Negative)
--- NOTE | 2024-09-29 19:52 | PC.NURSE ---
pt assisted to standing position with urinal for urine sample. Pt states he is unable to go. Given water per request will try again in 30 minutes and pt is okay with straight catheterization if unable to urinate after oral hydration.
[2024-09-29 21:02] LABS: Add Urine Microscopic? YES; Appearance Urine Cloudy (Clear); Bacteria Urine None Seen /hpf; Bilirubin Urine Negative (Negative); Blood Urine 3+ (Negative); Color Urine Yellow (Yellow); Glucose Urine UA Negative (Negative); Ketones Urine Negative (Negative); Leukocyte Esterase Ur Trace LEU/UL (Negative); Nitrate Urine Negative (Negative); Non Pathogenic Casts 0-2; Protein Urine 1+ mg/dL (Negative); RBC Urine >100 /hpf (0-2); Specific Grav Ur 1.016 (1.001-1.035); Squamous Epithelial Cell Urine Occasional /hpf (Few); Urobilinogen Urine 0.2 mg/dL (<2.0); WBC Urine 0-5 /hpf (0-3); pH Urine 6.5 (5.0-9.0)
[2024-09-29 22:21] VITALS: BP 145/85; PULSE 100; RESP 22; TEMP 37.1; O2SAT 96
== END 2024-09-29 22:50 | disposition home or self-care (01) ==
PROVIDERS: Emergency Provider Emergency Medicine; PCP Nurse Practitioner Family
DX: S09.90XA Unspecified injury of head, initial encounter (principal); S60.512A Abrasion of left hand, initial encounter; S51.011A Laceration without foreign body of right elbow, initial encounter; Z20.822 Contact with and (suspected) exposure to COVID-19; I48.91 Unspecified atrial fibrillation; N18.30 Chronic kidney disease, stage 3 unspecified; E78.5 Hyperlipidemia, unspecified; W19.XXXA Unspecified fall, initial encounter; R94.31 Abnormal electrocardiogram [ECG] [EKG]
CPT/HCPCS: 36415; 70450; 72125; 73080; 73130; 80053; 81001; 85025; 87637; 93005; 99284

== ENCOUNTER 2024-10-07 22:58 | Inpatient (IN) | payer MEDICARE, OTHER, SELFPAY ==
--- NOTE | ~2024-10-07 | XR_ITS ---
MODIFIED ESOPHAGRAM HISTORY: Dysphagia. TECHNIQUE: Modified barium esophagram was performed on 10/13/2024. I administered fluoroscopy and perf ormed the exam with speech pathologist. Patient was seated for lateral fluoroscopic imaging for nuno stion of thin liquids, pudding, solids and quantified amounts, followed by thin liquids in uncontroll ed amounts. This was recorded on tape. A single fluoroscopic spot image was also recorded. The DAP fo r this procedure was 0.861 Gycm2. The amount of fluoroscopy time used during this procedure was 1.7 m inutes. FINDINGS: Dobbhoff type nasoenteric feeding tube is seen extending from the nasopharynx into the visualized upp er esophagus. Oral stage: Reduced labial seal/lip tension and reduced lingual movement. Pharyngeal stage: Reduced laryngeal elevation and adduction. Reduced tongue base retraction and phary ngeal squeeze. There is vallecular, piriform sinus and pharyngeal wall residue. There was laryngeal p enetration and aspiration. Cervical/esophageal stage: Adequate function. IMPRESSION: Oropharyngeal dysphagia with laryngeal penetration and aspiration. Please correlate with speech pathologist findings and specific feeding recommendations. Reviewed, dictated and finalized at location A. IMPRESSION: Oropharyngeal dysphagia with laryngeal penetration and aspiration. Please correlate with speech pathologist findings and specific feeding recomme ndations.
--- NOTE | ~2024-10-07 | XR_ITS ---
XR chest 1V portable Ordering provider: Magdy Sanabria MD History: 88 years Male with . Acute desaturation . Comparison: October 10, 2024 FINDINGS: MEDIASTINUM: The cardiac silhouette is slightly enlarged. Nasogastric tube is seen with the tip in th e stomach. LUNGS: No pneumothorax. Opacification in the right lung base is seen suggestive of atelectasis versus pneumonia with pleural effusion. Opacification in the left lung base medially is seen suggestive of atelectasis versus pneumonia. OTHER: No free air under the diaphragm. IMPRESSION: Bibasilar opacification suggestive of atelectasis versus pneumonia with right pleural effusion. Reviewed, dictated and finalized at location A. IMPRESSION: Bibasilar opacification suggestive of atelectasis versus pneumonia with right p leural effusion.
--- NOTE | ~2024-10-07 | CT_ITS ---
EXAMINATION: CT guide nephro tube pl LT DATE: 10/12/2024 15:56 INDICATION: Left hydronephrosis TECHNIQUE: The procedure including the risks and benefits was discussed with the patient. Risks discu ssed included bleeding and infection. The patient understood the risks and benefits and agreed to pro ceed. The patient was confirmed to be receiving appropriate antibiotic coverage. The skin overlying the left kidney was prepped and draped in usual sterile fashion. Anesthetic was administered with 1% lidocaine subcutaneously. An 18 gauge trochar needle was inserted into an inferior calyx of the left kidney under CT guidance. The inner stylette was removed and demonstrate spontaneous efflux of urine . A wire was advanced through the needle into the left renal pelvis with position confirmed by CT. Ut ilizing Seldinger technique the needle was removed over the wire in the tracks related dilated to 8 F rench. An 8.5 Italian pigtail catheter was inserted over the wire into the left renal pelvis and the l oop formed and locked with position confirmed by CT. The catheter was stitched to the skin. Antibioti c ointment and a dressing were applied. 50 mL of pale straw-colored urine was aspirated from the tube and sent to the lab for Gram stain and cultures. The catheter was then attached to gravity drainage and was draining additional valvular-colored fluid at the conclusion of the procedure. An additional adhesive fixation device was applied. The dose-length product was 179.03 mGy-cm. There were no immedi ate complications. FINDINGS: CT images demonstrate the nephrostomy tube in the left renal pelvis. Large mass in the infe rior right hepatic lobe resulting in a lobular contour with heterogeneous attenuation. IMPRESSION: 1. Successful CT-guided left percutaneous nephrostomy tube placement with tube in expected position w ith formed loop in the left renal pelvis. The catheter will be managed by Dr. Nice. 2. 50 mL of clear pale straw-colored fluid was aspirated and sent to the lab for Gram stain and cultu res. Reviewed, dictated and finalized at location A. IMPRESSION: 1. Successful CT-guided left percutaneous nephrostomy tube placement with tube in expected position with formed loop in the left renal pelvis. The catheter wi ll be managed by Dr. Nice. 2. 50 mL of clear pale straw-colored fluid was aspirated and sent to the lab fo r Gram stain and cultures.
--- NOTE | ~2024-10-07 | XR_ITS ---
EXAM/PROCEDURE: XR fl Dobhoff insert/rad w img - 10/10/2024 12:50 CDT HISTORY: 88 years old Male with Needing TF now COMPARISON: None available. TECHNIQUE: AP view(s) of the abdomen. FINDINGS/ IMPRESSION: Tip of the feeding tube is in the stomach. Multiple attempts were made to advance the tip of the feed ing tube in the pylorus. After multiple unsuccessful attempts, the tip of the feeding tube is seen an d redundant in the fundus and will most likely advance into the pylorus with normal peristalsis. The bowel gas pattern is normal. There is no evidence for obstruction. No gross bony abnormalities are seen. Visualized portions of lung bases are clear. Reviewed, dictated and finalized at location A.
--- NOTE | ~2024-10-07 | CT_ITS ---
Non-contrast CT scan of the Abdomen and Pelvis Clinical indication: Urinary retention Technique: 2.5 mm axial scans were obtained through the abdomen and pelvis without intravenous or or al contrast. Dose reduction technique was used on this scan by utilizing automated exposure control a nd iterative reconstruction technique. The dose-length product (DLP) was 367.29 mGy-cm. Findings: Images through the lung bases reveal 5 mm right middle lobe nodule. There is partially esperanza ged moderate right pleural effusion.. There is a 5.2 cm probable cyst at the superior level with thin peripheral calcification. There is an additional cyst adjacent to the gallbladder fossa measuring 5.5 cm in diameter. There is an extremel y large lobulated mildly heterogeneous mass probably arising from the inferior right hepatic lobe and extending inferiorly, measuring 16.7 x 11.0 x 14.5 cm in size. There is severe bilateral hydroureter onephrosis. The spleen, pancreas, gallbladder, and adrenals appear normal. There is no aortic aneury sm. There is no evidence of bowel obstruction. Images through the pelvis were performed. Ayala catheter is in place, balloon and distal tip protrudi ng through the anterior aspect of the bladder, suspicious for bladder perforation.. There is a probab le large left-sided bladder diverticulum measuring up to 11.1 x 7.4 cm, with a 2 cm stone layering wi thin it (axial images 171). Probable large right-sided bladder diverticulum also present, measuring 9 .67 m in diameter. Small to moderate amount of abdominopelvic ascites also present. Small fat-contain ing right inguinal hernia present. Impression: Findings suspicious for urinary bladder perforation anteriorly, with Ayala catheter tip and balloon e xtending beyond the margin of the anterior bladder wall. CT urogram or cystogram recommended for furt her evaluation. Relative decompression of the urinary bladder, however there are probable large distended bilateral b ladder diverticula, as above. 2 cm stone layering within the left-sided diverticulum. Small to moderate abdominal pelvic ascites, possibly urinary ascites. Severe bilateral hydronephrosis. 16.7 x 1.0 x 14.5 cm mass arising from the inferior liver. Both benign and malignant etiologies are i n the differential diagnosis. Very large hemangiomas a consideration. Follow-up MR imaging recommende d to further evaluate. Additional hepatic cysts present. Moderate right pleural effusion. 5 mm right middle lobe pulmonary nodule, nonspecific. Reviewed, dictated and finalized at location M. Impression: Findings suspicious for urinary bladder perforation anteriorly, with Ayala cath eter tip and balloon extending beyond the margin of the anterior bladder wall. CT urogram or cystogram recommended for further evaluation. Relative decompression of the urinary bladder, however there are probable large distended bilateral bladder diverticula, as above. 2 cm stone layering within the left-sided diverticulum. Small to moderate abdominal pelvic ascites, possibly urinary ascites. Severe bilateral hydronephrosis. 16.7 x 1.0 x 14.5 cm mass arising from the inferior liver. Both benign and kayy gnant etiologies are in the differential diagnosis. Very large hemangiomas a co nsideration. Follow-up MR imaging recommended to further evaluate. Additional h epatic cysts present. Moderate right pleural effusion. 5 mm right middle lobe pulmonary nodule, nonspecific.
--- NOTE | ~2024-10-07 | XR_ITS ---
Portable chest x-ray Comparison: 10/08/2024 Clinical History: Respiratory failure Findings: Small right pleural effusion present with right basilar consolidation. Left lung clear. C ardiomediastinal silhouette is stable. Bones and soft tissues are unremarkable. Impression: Small right pleural effusion with right lower lobe atelectasis versus pneumonia. Correlate clinically . Reviewed, dictated and finalized at [facility]. Impression: Small right pleural effusion with right lower lobe atelectasis versus pneumonia . Correlate clinically.
--- NOTE | ~2024-10-07 | XR_ITS ---
EXAM/PROCEDURE: XR chest 1V portable - 10/10/2024 05:15 CDT HISTORY: 88 years old Male with hypoxia TECHNIQUE: AP view(s) of the chest. COMPARISON: 10/09/2024 FINDINGS/ IMPRESSION: Interval worsening of right pleural effusion causing compressive atelectasis. Near airspace opacity i n the left lung base. Small left pleural effusion. Findings can represent pneumonia in appropriate cl inical settings. Short-term follow-up chest radiograph is recommended after appropriate clinical ther apy. Limited evaluation of the cardiomediastinal silhouette. Degenerative changes. Reviewed, dictated and finalized at location A.
--- NOTE | ~2024-10-07 | CT_ITS ---
EXAMINATION: CT abdomen pelvis wo con DATE: 10/11/2024 18:11 INDICATION: Tramatic urinary catheter event TECHNIQUE: Computed tomography (CT) of the abdomen and pelvis was performed without intravenous contr ast. Automated exposure control and iterative reconstruction technique were employed. The dose-length product was 685.92 mGy-cm. COMPARISON: 10/09/2024, multiple exams on 10/08/2024. FINDINGS: Lower thorax: Cardiomegaly. Aortic and coronary artery calcifications. Dilated central pulmonary krystina aislinn as can be seen with pulmonary hypertension. Segmental right and subsegmental left basilar atelec tasis/consolidation. Small left and moderate right pleural fluid collections. Liver: Multiple cystic and solid liver lesions, grossly stable Biliary/Gallbladder: Gallbladder is normal. No bile duct dilation. Pancreas: No mass or duct dilation. Spleen: Normal. Adrenals:No mass. Kidneys: No suspicious mass. Stable severe left hydronephrosis. Mild-moderate right hydronephrosis, n ew since prior study. GI tract: A feeding tube terminates in the stomach. No small or large bowel dilation. Normal appendix . Diverticulosis without diverticulitis. Mesentery/Peritoneum: Increased perihepatic and perisplenic fluid. Retroperitoneum: No mass. Atherosclerotic calcifications of intra-abdominal arterial vessels. Pelvis: Prostatomegaly. The urinary bladder is decompressed by Ayala catheter but also exhibits surro unding inflammatory change. Increasing size of the bilateral pelvic fluid collections adjacent to the bladder, both contain fluid, gas, and there is retained contrast and a dependent stone in the left-s ided collection. Small fluid and gas collection anterior to the urinary bladder likely representing s ite of prior rupture. The tip of the Ayala catheter appears to extend beyond the lumen of the urinary bladder Soft Tissues: Soft tissues and body wall unremarkable. Bones: No acute osseous finding. IMPRESSION: Bibasilar atelectasis/consolidation and bilateral pleural effusions. A feeding tube terminates in the stomach. Stable severe left and recurrent mild-moderate right hydronephrosis. Small fluid and gas collection anterior to the urinary bladder likely representing the site of prior rupture, the tip of the current Ayala catheter terminates in this region and may be extraluminal. Increasing size of the bilateral fluid and gas collections adjacent to the urinary bladder, may repre sent large bladder diverticula. Possible cystitis. Increasing, mild ascites. Reviewed, dictated and finalized at location K. IMPRESSION: Bibasilar atelectasis/consolidation and bilateral pleural effusions. A feeding tube terminates in the stomach. Stable severe left and recurrent mild-moderate right hydronephrosis. Small fluid and gas collection anterior to the urinary bladder likely represent ing the site of prior rupture, the tip of the current Ayala catheter terminates in this region and may be extraluminal. Increasing size of the bilateral fluid and gas collections adjacent to the urin kimberly bladder, may represent large bladder diverticula. Possible cystitis. Increasing, mild ascites.
--- NOTE | ~2024-10-07 | US_ITS ---
BILATERAL LOWER EXTREMITY VENOUS ULTRASOUND Ordering provider: Magdy Sanabria MD History: . edema . Comparison: None. FINDINGS: RIGHT LOWER EXTREMITY VEINS: --COMMON FEMORAL: Patent and free of thrombus. Normal compressibility, phasic flow and augmentation. --PROXIMAL SUPERFICIAL FEMORAL: Patent and free of thrombus. Normal compressibility, phasic flow and augmentation. --DISTAL SUPERFICIAL FEMORAL: Patent and free of thrombus. Normal compressibility, phasic flow and au gmentation. --POPLITEAL: Patent and free of thrombus. Normal compressibility, phasic flow and augmentation. --POSTERIOR TIBIAL: Thrombosed. --Peroneal: Thrombosis. LEFT LOWER EXTREMITY VEINS: --COMMON FEMORAL: Patent and free of thrombus. Normal compressibility, phasic flow and augmentation. --PROXIMAL SUPERFICIAL FEMORAL: Patent and free of thrombus. Normal compressibility, phasic flow and augmentation. --DISTAL SUPERFICIAL FEMORAL: Patent and free of thrombus. Normal compressibility, phasic flow and au gmentation. --POPLITEAL: Thrombosed. --POSTERIOR TIBIAL: Thrombosed. --Peroneal: Thrombosis. IMPRESSION: Bilateral deep vein thrombosis. Reviewed, dictated and finalized at location A.
--- NOTE | ~2024-10-07 | XR_ITS ---
EXAMINATION: XR fluoroscopy no charge DATE: 10/09/2024 11:11 INDICATION: Attempted cystogram TECHNIQUE: 2 fluoroscopic images of the abdomen and pelvis were obtained during procedure performed amber [place]. Radiologist was not present for the imaging or procedure. The amount of fluoroscopy taqueria e used during this procedure was 0.1 minutes. Total DAP was 0.0362 mGym^2. COMPARISON: None. FINDINGS: Images demonstrate a cystoscope projecting over the central pelvis. Normal bowel gas pattern. IMPRESSION: 1. Fluoroscopy utilized during attempted cystogram. See procedure note for further detail. Reviewed, dictated and finalized at location B. IMPRESSION: 1. Fluoroscopy utilized during attempted cystogram. See procedure note for furt her detail.
--- NOTE | ~2024-10-07 | CT_ITS ---
CT Cystogram of the Abdomen and Pelvis: Indication: Bladder perforation Technique: 2.5 mm axial scans were obtained through the abdomen and pelvis following administration of 100 cc of Omnipaque 350 contrast into through the Ayala catheter. Dose reduction technique was use d on this scan by utilizing automated exposure control and iterative reconstruction technique. The do se-length product (DLP) was 687.56 mGy-cm. COMPARISON: 410 25-30 7:00 AM Findings: Scans through the lung bases again demonstrate moderate right pleural effusion. Hepatic cysts and a large solid intrahepatic mass are unchanged from recent prior exam. Severe bilate ral hydronephrosis again present. The spleen, pancreas, gallbladder, and adrenal glands are within no rmal limits. No evidence of aortic aneurysm. No lymphadenopathy. No bowel obstruction or bowel wall thickening. There is no evidence to suggest acute appendicitis. Images through the pelvis were performed. Ayala catheter balloon appears to extend beyond the anterio r margin of the bladder wall. Contrast extravasates from the anterior bladder, more apparent on prone images, compatible with extraperitoneal bladder rupture. There are large bilateral bladder diverticu la, which are prominently distended with urine, and filled with administered contrast. Moderate abdom inopelvic ascites, possible urinary ascites again present. Impression: Findings compatible with extra peritoneal bladder rupture anteriorly, as detailed above. Moderate abdominopelvic ascites again present. Urinary ascites is again not excluded, and the possibi lity of a ureteral injury cannot be completely excluded based on this exam. CT urogram would be requi red to better assess for ureteral injury. Severe bilateral hydronephrosis, left worse than right. Large bladder diverticula. Stable large solid hepatic mass, which could reflect large hemangioma versus other more aggressive le alexander. Again, follow-up MR imaging recommended to further assess. Moderate right pleural effusion. Reviewed, dictated and finalized at location M. Impression: Findings compatible with extra peritoneal bladder rupture anteriorly, as detail ed above. Moderate abdominopelvic ascites again present. Urinary ascites is again not exc luded, and the possibility of a ureteral injury cannot be completely excluded b ased on this exam. CT urogram would be required to better assess for ureteral i njury. Severe bilateral hydronephrosis, left worse than right. Large bladder diverticula. Stable large solid hepatic mass, which could reflect large hemangioma versus ot her more aggressive lesion. Again, follow-up MR imaging recommended to further assess. Moderate right pleural effusion.
--- NOTE | ~2024-10-07 | XR_ITS ---
Portable chest x-ray Comparison: 04/08/2020 Clinical History: Dyspnea Findings: Probable minimal right pleural effusion present. Probable mild bibasilar chronic interstit ial change. Cardiomediastinal silhouette is stable. Bones and soft tissues are unremarkable. Impression: Minimal right pleural effusion with mild bibasilar chronic interstitial change or interstitial edema. Reviewed, dictated and finalized at [facility]. Impression: Minimal right pleural effusion with mild bibasilar chronic interstitial change or interstitial edema.
--- NOTE | ~2024-10-07 | CT_ITS ---
Non-contrast CT scan of the Abdomen and Pelvis Clinical indication: Hydronephrosis Technique: 2.5 mm axial scans were obtained through the abdomen and pelvis without intravenous or or al contrast. Dose reduction technique was used on this scan by utilizing automated exposure control a nd iterative reconstruction technique. The dose-length product (DLP) was 499.20 mGy-cm. COMPARISON: 10/08/2024 Findings: Images through the lung bases reveal moderate right pleural effusion and minimal left pleu ral effusion. There is right basilar consolidation, most likely atelectasis.. Right hydronephrosis is markedly improved from prior exam. There is persistent severe hydroureteronep hrosis on the left side. Stable hepatic cysts. Stable very large lobulated mass extending from the inferior margin of the live r measuring up to 13.5 cm in diameter. The spleen, pancreas, gallbladder, and adrenals appear normal. There is no aortic aneurysm. There is no evidence of bowel obstruction. Images through the pelvis were performed. Ayala catheter now appears to be within decompressed urinar y bladder with wall thickening. There is persistent contrast within large left-sided bladder divertic ulum. Right-sided bladder diverticulum is somewhat decompressed with air in small amount of fluid wit hin it. Small amount of abdominopelvic ascites present. Prostate gland is stable. Impression: Persistent severe left hydroureteronephrosis. Impingement/obstruction or injury to the distal left ur eter remains a consideration. Right hydronephrosis is nearly completely resolved. Ayala catheter now within the urinary bladder which shows diffuse wall thickening, which could reflec t cystitis/inflammatory change. Large bladder diverticula, with persistent contrast distending the le ft bladder diverticulum. Possible tiny amount of residual extraluminal contrast extraperitoneally ant erior to the urinary bladder.. Small amount of abdominopelvic ascites. Moderate right pleural effusion and small left pleural effusion with right lower lobe atelectasis. Stable large hepatic mass, indeterminate, as detailed on recent prior CT scans. Reviewed, dictated and finalized at [facility] M. Impression: Persistent severe left hydroureteronephrosis. Impingement/obstruction or injury to the distal left ureter remains a consideration. Right hydronephrosis is nearly completely resolved. Ayala catheter now within the urinary bladder which shows diffuse wall thickeni ng, which could reflect cystitis/inflammatory change. Large bladder diverticula , with persistent contrast distending the left bladder diverticulum. Possible t iny amount of residual extraluminal contrast extraperitoneally anterior to the urinary bladder.. Small amount of abdominopelvic ascites. Moderate right pleural effusion and small left pleural effusion with right lowe r lobe atelectasis. Stable large hepatic mass, indeterminate, as detailed on recent prior CT scans.
--- OUTSIDE RECORDS SUMMARY | 2024-10-07 23:01 | XMS_ITS | Encounter Summary ---
Author Organization [facility] Address [address] [place] [address] Care Team Providers Care Warehouse Shift Supervisor Name Role Phone Bernabe Casper MD Primary Care Provider [phone] Encounter Details Date Type Department Care Team (Late st Contact Info) Description 03/14/2022 Lab Requisition [facility] Care DermPath Lab [address] [facility] [place] [phone] Caesar Robbins MD [facility] [place] [address] Social History Tobacco Use Types [...] AM CDT) Case Report Dermatopathology Report Case: [id number] Authorizing Provider: Caesar Robbins MD Collected: 03/14/2022 12:00 AM Ordering Location: [facility] DermPath Lab Received: 03/14/2022 04:06 PM Pathologist: [...] characteristic determined by the Dermatopathology Laboratory at [facility], directed by Dr. Ruth Garcia. These tests need not be, and therefore are not, approved by the [place] Food and Drug Administration. The tests are used for clinical purposes. Billing Codes Specimen Charges Stain Charges 48496 74231 1 1 2 3:26 PM CDT DERMATOPATHOLOGY LABORATORY Embedded Images 2 3:26 PM CDT DERMATOPATHOLOGY LABORATORY Pathology/Cytology TISSUE SPECIMEN FROM SKIN / Unknown 03/14/2022 03/14/2022 4:06 PM CDT Miscellaneous samples (specimen) TISSUE SPECIMEN FROM SKIN / Unknown 03/14/2022 03/14/2022 4:06 PM CDT Caesar Robbins MD LAB - PATHOLOGY/CYTO LOGY ORDERABLES DERMATOPATHOLOGY LABORATORY [facility] - Department of Dermatology [address], [address] [phone] documented in this encounter Visit Diagnoses Not on filedocumented in this encounter Care Teams Warehouse Shift Supervisor Relationship Specialty Start Date End Date Bernabe Casper MD [address] [facility] [address] [place] [address] PCP - General 04/14/08 documented as of this encounter
--- OUTSIDE RECORDS SUMMARY | 2024-10-07 23:01 | XMS_ITS | Clinical Summary ---
Author Organization [facility] Address [address] [facility] [place] [address] Care Team Providers Care Plastics Patternmaker Name Role Phone Bernabe Casper MD Primary Care Provider [phone] [facility] [place] [facility] and Associated Physician Practices is amultiple site organization consisting of ambulatory clinics and hospital sitesin [place], [place], [place] and [place]. This disclosure is being madepursuant to the Care Everywhere program and may not contain all information available regarding this patient. Last updated 18.[facility] Social History Tobacco Use Types Packs/Day Years [...] VACCINE ( - 2023-2 5 season) 2024 DEPRESSION SCREENING 07/01/2024 INFLUENZA VACCINE (Season Ended) 2025 HEPATITIS B VACCINE Aged Out No longe [...] age to complete this topic Care Teams Plastics Patternmaker Relationship Specialty Start Date End Date Bernabe Casper MD [address] [facility] [address] [facility] [address] [place] [phone] PCP - General 04/14/08
--- OUTSIDE RECORDS SUMMARY | 2024-10-07 23:01 | XMS_ITS | Encounter Summary ---
Author Organization [facility] Address [address] [facility] [place] [address] Care Team Providers Care Mainspring Fabrication Supervisor Name Role Phone Bernabe Casper MD Primary Care Provider [phone] Encounter Details Date Type Department Care Team (Late st Contact Info) Description 07/31/2023 Lab Requisition [facility] - DermPath Lab [address] [facility] [place] [phone] Caesar Robbins MD [address] [place] [address] Social History Tobacco Use Types [...] Diagnosis Comments DERMATOPATHOLOGY Routine 07/30/2023 3:33 AM POLE INCISOR OPERATOR documented in this encounter Results * DERMATOPATHOLOGY (07/30/2023 3:33 AM POLE INCISOR OPERATOR) Case Report Dermatopathology Report Case: [id number] Authorizing Provider: Caesar Robbins MD Collected: 07/30/2023 03:33 AM Ordering Location: [facility] DermPath Lab Received: 07/31/2023 09:09 AM Pathologist: Vani Higuera MD Specimen: Skin, right sup shoulder 5:22 PM [facility] DERMATOPATHOLOGY LABORATORY Final Diagnosis Specimen A. SKIN, right sup shoulder: BASAL CELL CARCINOMA, NODULAR TYPE (C44.612) 5:22 PM [facility] DERMATOPATHOLOGY LABORATORY Clinical History R/o BCC 5:22 PM [facility] DERMATOPATHOLOGY LABORATORY Gross Description Specimen A: Received is one formalin filled container labeled with the patient's name and designated right sup shoulder. The specimen consists of a shave biopsy measuring 11x8x1 mm. Jar 0. 5:22 PM [facility] DERMATOPATHOLOGY LABORATORY Microscopic Description Specimen A. SKIN, right sup shoulder: Within the dermis there are aggregates of basaloid cells with a high nuclear to cytoplasmic ratio and peripheral palisading. 5:22 PM [facility] DERMATOPATHOLOGY LABORATORY Disclaimer An external and internal positive and negative controls are appropriate for the histochemical, immunohistochemical and immunofluorescence stain(s) in this case (if any), except where stated explicitly. The performance characteristics of the stain(s) cited in this report were developed and its performance characteristic determined by the Dermatopathology Laboratory at [facility], directed by Dr. Ruth Garcia. These tests need not be, and therefore are not, approved by the [place] Food and Drug Administration. The tests are used for clinical purposes. Billing Codes Specimen Charges Stain Charges 95511 1 4 5:22 PM [facility] DERMATOPATHOLOGY LABORATORY Embedded Images 4 5:22 PM [facility] DERMATOPATHOLOGY LABORATORY Pathology/Cytolo gy TISSUE SPECIMEN FROM SKIN / Unknown 07/30/2023 3:33 AM POLE INCISOR OPERATOR 07/31/2023 9:09 AM POLE INCISOR OPERATOR Caesar Robbins MD LAB - PATHOLOGY/CYTO LOGY ORDERABLES DERMATOPATHOLOGY LABORATORY [facility] - Department of Dermatology [address] [phone] documented in this encounter Visit Diagnoses Not on filedocumented in this encounter Care Teams [employer] Fabrication Supervisor Relationship Specialty Start Date End Date Bernabe Casper MD [address] [facility] [address] [place] [address] PCP - General 04/14/08 documented as of this encounter
--- OUTSIDE RECORDS SUMMARY | 2024-10-07 23:01 | XMS_ITS | Encounter Summary ---
Author Organization [facility] Address [address] [facility] [place] [address] Care Team Providers Care Co Founder Name Role Phone Bernabe Casper MD Primary Care Provider [phone] Encounter Details Date Type Department Care Team (Late st Contact Info) Description 04/13/2022 Lab Requisition [facility] Care DermPath Lab [address] [facility] [place] [phone] Caesar Robbins MD [facility] [place] [address] Social History Tobacco Use Types [...] AM CDT) Case Report Dermatopathology Report Case: [id number] Authorizing Provider: Caesar Robbins MD Collected: 04/12/2022 12:00 AM Ordering Location: [facility] DermPath Lab Received: 04/13/2022 06:08 AM Pathologist: [...] characteristic determined by the Dermatopathology Laboratory at [facility], directed by Dr. Ruth Garcia. These tests need not be, and therefore are not, approved by the [place] Food and Drug Administration. The tests are used for clinical purposes. Billing Codes Specimen Charges Stain Charges 16399 1 2 1:50 PM CDT DERMATOPATHOLOGY LABORATORY Embedded Images 2 1:50 PM CDT DERMATOPATHOLOGY LABORATORY Pathology/Cytolog y TISSUE SPECIMEN FROM SKIN / Unknown 04/12/2022 04/13/2022 6:08 AM CDT Caesar Robbins MD LAB - PATHOLOGY/CYTO LOGY ORDERABLES DERMATOPATHOLOGY LABORATORY [facility] - Department of Dermatology [facility] [address] [place] [address], [address] [phone] documented in this encounter Visit Diagnoses Not on filedocumented in this encounter Care Teams Co Founder Relationship Specialty Start Date End Date Bernabe Casper MD [address] [facility] [address] [place] [address] PCP - General 04/14/08 documented as of this encounter
--- OUTSIDE RECORDS SUMMARY | 2024-10-07 23:01 | XMS_ITS | Encounter Summary ---
Author Organization [facility] Address [address] [facility] [place] [address] Care Team Providers Care Construction Technology Instructor Name Role Phone Bernabe Casper MD Primary Care Provider [phone] Encounter Details Date Type Department Care Team (Late st Contact Info) Description 08/20/2023 Lab Requisition [facility] - DermPath Lab [address] [facility] [place] [phone] Caesar Robbins MD [address] [place] [address] Social History Tobacco Use Types [...] Diagnosis Comments DERMATOPATHOLOGY Routine 08/20/2023 3:33 AM FLUSH TESTER documented in this encounter Results * DERMATOPATHOLOGY (08/20/2023 3:33 AM FLUSH TESTER) Case Report Dermatopathology Report Case: [id number] Authorizing Provider: Caesar Robbins MD Collected: 08/20/2023 03:33 AM Ordering Location: [facility] DermPath Lab Received: 08/20/2023 03:43 PM Pathologist: Gama Garcia MD Specimen: Skin, right sup shoulder 2:58 PM [facility] DERMATOPATHOLOGY LABORATORY Final Diagnosis Specimen A. SKIN, right sup shoulder: HEALING SKIN CHANGES (L90.5) 2:58 PM [facility] DERMATOPATHOLOGY LABORATORY Clinical History [id number] 2:58 PM [facility] DERMATOPATHOLOGY LABORATORY Gross Description Specimen A: Received is one formalin filled container labeled with the patient's name and designated right sup shoulder. The specimen consists of a(2) pieces shave biopsy measuring 9x8x1, 8x5x1 mm. Jar 0. 2:58 PM [facility] DERMATOPATHOLOGY LABORATORY Microscopic Description Specimen A. SKIN, right sup shoulder: There is epidermal hyperplasia beneath which there are vascular proliferation, fibroblasts, and an edematous stroma. 2:58 PM [facility] DERMATOPATHOLOGY LABORATORY Disclaimer An external and internal positive and negative controls are appropriate for the histochemical, immunohistochemical and immunofluorescence stain(s) in this case (if any), except where stated explicitly. The performance characteristics of the stain(s) cited in this report were developed and its performance characteristic determined by the Dermatopathology Laboratory at [facility], directed by Dr. Ruth Garcia. These tests need not be, and therefore are not, approved by the [place] Food and Drug Administration. The tests are used for clinical purposes. Billing Codes Specimen Charges Stain Charges 57982 1 4 2:58 PM [facility] DERMATOPATHOLOGY LABORATORY Embedded Images 2:58 PM [facility] DERMATOPATHOLOGY LABORATORY Pathology/Cytolo gy TISSUE SPECIMEN FROM SKIN / Unknown 08/20/2023 3:33 AM FLUSH TESTER 08/20/2023 3:43 PM FLUSH TESTER Caesar Robbins MD LAB - PATHOLOGY/CYTO LOGY ORDERABLES DERMATOPATHOLOGY LABORATORY [facility] - Department of Dermatology [address], [address] [phone] documented in this encounter Visit Diagnoses Not on filedocumented in this encounter Care Teams Construction Technology Instructor Relationship Specialty Start Date End Date Bernabe Casper MD [address] [facility] [address] [place] [address] PCP - General 04/14/08 documented as of this encounter
[2024-10-07 23:02] VITALS: BP 125/82; PULSE 84; RESP 21; TEMP 36.4; O2SAT 100
[2024-10-08] VITALS (44 sets, daily range): BP systolic 84–154; BP diastolic 43–111; PULSE 78–147; RESP 16–36; TEMP 36.8–37.4; O2SAT 71–100; BMI 20.9
--- NOTE | 2024-10-08 | ECHO_ITS ---
Patient Info Name: Gregory Garcia Age: 88 years : 1935 Gender: Male Ht: 69 in Wt: 141 lbs BSA: 1.76 m2 HR: 96 bpm BP: 105 / 53 mmHg Technical Quality: Fair Exam Date: 10/08/2024 12:19 PM Exam Location: Echo Lab Patient Status: Inpatient Admit Date: 10/08/2024 Any Known Allergies: pt had reaction to DEFINITY (back pain) Staff Ordering Physician: Magdy Sanabria MD Boat Painter: Xiomy Rodrigez RDCS Attending Provider: Manoj Tejeda MD Exam Type: CA echo dop color flow w con Study Info Indications - Resp failure Complete two-dimensional, color flow and Doppler transthoracic echocardiogram is performed with contrast to opacify the left ventricle and to improve the deliniation of the left ventricle endocardial borders. Summary 1. Technically suboptimal study due to poor sonographic images. 2. Definity contrast administered improved wall motion interpretation. 3. Left ventricular chamber dimension is normal. 4. Left ventricular systolic function is normal, estimated at 55-60%. 5. The left ventricular diastolic function is grade I diastolic dysfunction. 6. Left atrial chamber dimension is severely enlarged. 7. Right atrial chamber dimension is mildly enlarged. 8. There is moderate aortic valve sclerosis. 9. There is mild aortic valve stenosis with a peak velocity of 190.38 cm/s, mean gradient of 7 mmHg, and aortic valve area of 1.82 cm2. 10. The mitral valve has mildly calcified annulus. 11. There is trace tricuspid valve regurgitation. 12. No pulmonary hypertension, estimated pulmonary arterial systolic pressure is 29 mmHg. Left Ventricle Definity contrast administered improved wall motion interpretation. Technically suboptimal study due to poor sonographic images. Left ventricular chamber dimension is normal. Left ventricular systolic function is normal, estimated at 55-60%. The left ventricular diastolic function is grade I diastolic dysfunction. Tissue doppler was not performed. Right Ventricle Right ventricular chamber dimension is normal. Right ventricular systolic function is normal. Left Atria Left atrial chamber dimension is severely enlarged. Right Atria Right atrial chamber dimension is mildly enlarged. Aortic Valve The aortic valve is trileaflet. There is moderate aortic valve sclerosis. There is mild aortic valve stenosis with a peak velocity of 190.38 cm/s, mean gradient of 7 mmHg, and aortic valve area of 1.82 cm2. There is no aortic valve regurgitation. Pulmonic Valve There is no pulmonic regurgitation. Mitral Valve The mitral valve has mildly calcified annulus. There is no mitral valve stenosis. There is mild mitral valve regurgitation. Tricuspid Valve There is trace tricuspid valve regurgitation. No pulmonary hypertension, estimated pulmonary arterial systolic pressure is 29 mmHg. Pericardium/Pleural There is no pericardial effusion. Inferior Vena Cava Normal inferior vena cava with >50% collapse upon inspiration consistent with normal right atrial pressure, 5 mmHg. Aorta The aortic root size at the sinus of Valsalva is normal. Left Ventricular Outflow Tract Name Value Normal LVOT 2D LVOT Diameter 1.95 cm LVOT Doppler LVOT Peak Gradient 2 mmHg LVOT Mean Gradient 1 mmHg LVOT VTI 13.87 cm LVOT VTI/AV VTI Ratio 0.61 LVOT Stroke Volume 41.60 ml LVOT CO 10.47 l/min LVOT CI 5.95 L/min/m2 Tricuspid Valve Name Value Normal TV Regurgitation Doppler TR Peak Velocity 245.65 cm/s TR Peak Gradient 22 mmHg Estimated PAP/RSVP RA Pressure 5 mmHg <=5 PA Systolic Pressure 29 mmHg <36 RV Systolic Pressure 29 mmHg <36 Aorta Name Value Normal Ascending Aorta Ao Root Diameter (MM) 3.44 cm Ao Root Diam Index (MM) 1.95 cm/m2 Aortic Valve Name Value Normal AV Doppler AV Peak Velocity 190.38 cm/s AV Peak Gradient 12 mmHg AV Mean Gradient 7 mmHg AV VTI 22.83 cm AV Area (Cont Eq VTI) 1.82 cm2 >=3.00 AV Area (Cont Eq Ankit) 1.28 cm2 AV Regurgitation 2D LVOT Area 3.00 cm2 Ventricles Name Value Normal LV Dimensions 2D/MM IVS Diastolic Thickness (2D) 1.10 cm 0.60-1.00 LVID Diastole (2D) 3.22 cm 4.20-5.80 LVIW Diastolic Thickness (2D) 1.09 cm 0.60-1.00 LVID Systole (2D) 2.62 cm 2.50-4.00 LVOT Diameter 1.95 cm LV Mass (2D Cubed) 104.66 g 88.00-224.00 LV Mass Index (2D Cubed) 0.01 g/cm2 0.00-0.01 Relative Wall Thickness (2D) 0.68 LV Fractional Shortening/Ejection Fraction 2D/MM LV Fractional Shortening (2D) 19 % 25-43 LV EF (2D Teicholz) 40 % 52-72 RV Dimensions 2D/MM RVID Diastole (2D) 3.29 cm 2.50-3.50 Atria Name Value Normal LA Dimensions LA Dimension (MM) 5.77 cm 3.00-4.10 LA Volume (4C A-L) 115.54 ml LA Volume (BP A-L) 110.02 ml RA Dimensions RA Area (4C) 16.88 cm2 <=18.00 Report Signatures
--- OUTSIDE RECORDS SUMMARY | 2024-10-08 01:42 | XMS_ITS | Encounter Summary ---
Author Organization [facility] Address [address] [place] [address] Care Team Providers Care Junior Programmer Name Role Phone Benrabe Casper MD Primary Care Provider [phone] Encounter Details Date Type Department Care Team (Late st Contact Info) Description 03/14/2022 Lab Requisition [facility] Care DermPath Lab [address] [facility] [address] [facility] [place] [id number] Caesar Robbins MD [facility] [place] [address] Social History Tobacco Use Types [...] AM CDT) Case Report Dermatopathology Report Case: [id number] Authorizing Provider: Caesar Robbins MD Collected: 03/14/2022 12:00 AM Ordering Location: [facility] DermPath Lab Received: 03/14/2022 04:06 PM Pathologist: [...] characteristic determined by the Dermatopathology Laboratory at [facility], directed by Dr. Ruth Garcia. These tests need not be, and therefore are not, approved by the [place] Food and Drug Administration. The tests are used for clinical purposes. Billing Codes Specimen Charges Stain Charges 59885 80804 1 1 2 3:26 PM CDT DERMATOPATHOLOGY LABORATORY Embedded Images 2 3:26 PM CDT DERMATOPATHOLOGY LABORATORY Pathology/Cytology TISSUE SPECIMEN FROM SKIN / Unknown 03/14/2022 03/14/2022 4:06 PM CDT Miscellaneous samples (specimen) TISSUE SPECIMEN FROM SKIN / Unknown 03/14/2022 03/14/2022 4:06 PM CDT Caesar Robbins MD LAB - PATHOLOGY/CYTO LOGY ORDERABLES DERMATOPATHOLOGY LABORATORY [facility] - Department of Dermatology [address] [phone] documented in this encounter Visit Diagnoses Not on filedocumented in this encounter Care Teams Junior Programmer Relationship Specialty Start Date End Date Bernabe Casper MD [address] [facility] [address] [place] [address] PCP - General 04/14/08 documented as of this encounter
--- OUTSIDE RECORDS SUMMARY | 2024-10-08 01:42 | XMS_ITS | Encounter Summary ---
Author Organization [facility] Address [address] [place] [address] Care Team Providers Care Nursery Worker Name Role Phone Bernabe Casper MD Primary Care Provider [phone] Encounter Details Date Type Department Care Team (Late st Contact Info) Description 07/31/2023 Lab Requisition [facility] - DermPath Lab [address] [facility] [place] [id number] Caesar Robbins MD [address] [place] [address] Social History Tobacco Use Types [...] Diagnosis Comments DERMATOPATHOLOGY Routine 07/30/2023 3:33 AM SHOT POLISHER AND INSPECTOR documented in this encounter Results * DERMATOPATHOLOGY (07/30/2023 3:33 AM SHOT POLISHER AND INSPECTOR) Case Report Dermatopathology Report Case: [id number] Authorizing Provider: Caesar Robbins MD Collected: 07/30/2023 03:33 AM Ordering Location: [facility] DermPath Lab Received: 07/31/2023 09:09 AM Pathologist: Vani Higuera MD Specimen: Skin, right sup shoulder 5:22 PM [facility] DERMATOPATHOLOGY LABORATORY Final Diagnosis Specimen A. 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 The specimen consists of a shave biopsy measuring 11x8x1 mm. Jar 0. 5:22 PM [facility] DERMATOPATHOLOGY LABORATORY Microscopic Description Specimen A. SKIN, right sup shoulder: Within the dermis there are aggregates of basaloid cells with a high nuclear to cytoplasmic ratio and peripheral palisading. 5:22 PM [facility] DERMATOPATHOLOGY LABORATORY Disclaimer An external and internal positive and negative controls are appropriate for the histochemical, immunohistochemical and immunofluorescence stain(s) in this case (if any), except where stated explicitly. The performance characteristics of the stain(s) cited in this report were developed and its performance characteristic determined by the Dermatopathology Laboratory at [facility], directed by Dr. Ruth Garcia. These tests need not be, and therefore are not, approved by the [place] Food and Drug Administration. The tests are used for clinical purposes. Billing Codes Specimen Charges Stain Charges 37022 1 4 5:22 PM [facility] DERMATOPATHOLOGY LABORATORY Embedded Images 4 5:22 PM [facility] DERMATOPATHOLOGY LABORATORY Pathology/Cytolo gy TISSUE SPECIMEN FROM SKIN / Unknown 07/30/2023 3:33 AM SHOT POLISHER AND INSPECTOR 07/31/2023 9:09 AM SHOT POLISHER AND INSPECTOR Caesar Robbins MD LAB - PATHOLOGY/CYTO LOGY ORDERABLES DERMATOPATHOLOGY LABORATORY [facility] - Department of Dermatology [address] [phone] documented in this encounter Visit Diagnoses Not on filedocumented in this encounter Care Teams Nursery Worker Relationship Specialty Start Date End Date Bernabe Casper MD [address] [facility] [address] [place] [address] PCP - General 04/14/08 documented as of this encounter
--- OUTSIDE RECORDS SUMMARY | 2024-10-08 01:42 | XMS_ITS | Encounter Summary ---
Author Organization [facility] Address [address] [place] [address] Care Team Providers Care Chemical Engraver Name Role Phone Bernabe Casper MD Primary Care Provider [phone] Encounter Details Date Type Department Care Team (Late st Contact Info) Description 08/20/2023 Lab Requisition [facility] - DermPath Lab [address] [place] [id number] Caesar Robbins MD [address] [place] [address] Social History Tobacco Use Types [...] Diagnosis Comments DERMATOPATHOLOGY Routine 08/20/2023 3:33 AM CLASSROOM ASSISTANT documented in this encounter Results * DERMATOPATHOLOGY (08/20/2023 3:33 AM CLASSROOM ASSISTANT) Case Report Dermatopathology Report Case: [id number] Authorizing Provider: Caesar Robbins MD Collected: 08/20/2023 03:33 AM Ordering Location: [facility] Derm[facility] Lab Received: 08/20/2023 03:43 PM Pathologist: Gama Garcia MD Specimen: Skin, right sup shoulder 2:58 PM [facility] DERMAT[facility]OR[facility] Final Diagnosis Specimen A. SKIN, right sup shoulder: HEALING SKIN CHANGES (L90.5) 2:58 PM [facility]MAT[facility] Clinical History [id number] 2:58 PM [facility] Gross Description Specimen A: Received is one formalin filled container labeled with the patient's name and designated right sup shoulder. The specimen consists of a(2) pieces shave biopsy measuring 9x8x1, 8x5x1 mm. Jar 0. 2:58 PM [facility]ER[facility] Microscopic Description Specimen A. SKIN, right sup shoulder: There is epidermal hyperplasia beneath which there are vascular proliferation, fibroblasts, and an edematous stroma. 2:58 PM [facility]ERMAT[facility] Disclaimer An external and internal positive and negative controls are appropriate for the histochemical, immunohistochemical and immunofluorescence stain(s) in this case (if any), except where stated explicitly. The performance characteristics of the stain(s) cited in this report were developed and its performance characteristic determined by the Dermatopathology Laboratory at [facility], directed by Dr. Ruth Garcia. These tests need not be, and therefore are not, approved by the [place] Food and Drug Administration. The tests are used for clinical purposes. Billing Codes Specimen Charges Stain Charges 42003 1 4 2:58 PM [facility] Embedded Images 2:58 PM [facility] Pathology/Cytolo gy TISSUE SPECIMEN FROM SKIN / Unknown 08/20/2023 3:33 AM CLASSROOM ASSISTANT 08/20/2023 3:43 PM CLASSROOM ASSISTANT Caesar Robbins MD LAB - PATHOLOGY/CYTO LOGY ORDERABLES DERMATOPATHOLOGY LABORATORY [facility] - Department of Dermatology [address], [address] [phone] documented in this encounter Visit Diagnoses Not on filedocumented in this encounter Care Teams Chemical Engraver Relationship Specialty Start Date End Date Bernabe Casper MD [address] [facility] [address] [place] [address] PCP - General 04/14/08 documented as of this encounter
--- OUTSIDE RECORDS SUMMARY | 2024-10-08 01:42 | XMS_ITS | Encounter Summary ---
Author Organization [facility] Address [address] [facility] [place] [address] Care Team Providers Care Rn Medication Name Role Phone Bernabe Casper MD Primary Care Provider [phone] Encounter Details Date Type Department Care Team (Late st Contact Info) Description 04/13/2022 Lab Requisition [facility] Care DermPath Lab [address] [facility] [place] [phone] Caesar Robbins MD [facility] [place] [address] Social History Tobacco Use Types [...] AM CDT) Case Report Dermatopathology Report Case: [id number] Authorizing Provider: Caesar Robbins MD Collected: 04/12/2022 12:00 AM Ordering Location: [facility] DermPath Lab Received: 04/13/2022 06:08 AM Pathologist: [...] characteristic determined by the Dermatopathology Laboratory at [facility], directed by Dr. Ruth Garcia. These tests need not be, and therefore are not, approved by the [place] Food and Drug Administration. The tests are used for clinical purposes. Billing Codes Specimen Charges Stain Charges 13418 1 2 1:50 PM CDT DERMATOPATHOLOGY LABORATORY Embedded Images 2 1:50 PM CDT DERMATOPATHOLOGY LABORATORY Pathology/Cytolog y TISSUE SPECIMEN FROM SKIN / Unknown 04/12/2022 04/13/2022 6:08 AM CDT Caesar Robbins MD LAB - PATHOLOGY/CYTO LOGY ORDERABLES DERMATOPATHOLOGY LABORATORY [facility] - Department of Dermatology [facility] [address] [place] [address], [address] [phone] documented in this encounter Visit Diagnoses Not on filedocumented in this encounter Care Teams Rn Medication Relationship Specialty Start Date End Date Bernabe Casper MD [address] [facility] [address] [place] [address] PCP - General 04/14/08 documented as of this encounter
--- OUTSIDE RECORDS SUMMARY | 2024-10-08 01:42 | XMS_ITS | Clinical Summary ---
Author Organization [facility] Address [address] [facility] [place] [address] Care Team Providers Care Tax Economist Name Role Phone Bernabe Casper MD Primary Care Provider [phone] Source Comments [facility],non-[facility]iliates and Associated Physician Practices is amultiple site organization consisting of ambulatory clinics and hospital sitesin [place]. This disclosure is being madepursuant to the Care Everywhere program and may not contain all information available regarding this patient. Last updated 18.[facility] Social History Tobacco Use Types Packs/Day Years [...] age to complete this topic Care Teams Tax Economist Relationship Specialty Start Date End Date Bernabe Casper MD [address] [facility] [facility] [address] [place] [phone] PCP - General 04/14/08
--- NOTE | 2024-10-08 01:53 | ED.ABDPAIN ---
HPI - Abdominal Pain General Chief Complaint: Abdominal Pain <Oneyda Larry PA-C - Last Filed: 10/08/24 03:40> Stated Complaint: severe pain <Oneyda Larry PA-C - Last Filed: 10/08/24 03:40> Time Seen by Provider: 10/08/24 01:35 <Oneyda Larry PA-C - Last Filed: 10/08/24 03:40> History of Present Illness HPI narrative: 88-year-old male with history of hyperlipidemia, stage III CKD, AFib on anticoagulation, s/p head and neck cancer presents to the emergency department with daughter and family friend at bedside for lower abdominal pain. Patient's family at bedside to assist with history. States the patient went to bed in normal state of health around 8:30 p.m. but woke up in the middle the night with suprapubic abdominal cramping and pain. Family is concerned the patient has not urinated in several hours. The patient is unable to tell me the last time he urinated. They do note that he has had issues with emptying his bladder in the past but does not have a Ayala catheter. The patient is reporting some nausea, no vomiting. He also reports subjective fevers but has not checked his temperature. Last bowel movement was this morning and normal. The patient saw his PCP on 10/05/2024 for frequent falls in the ED follow up. Patient was diagnosed with a UTI and started on cephalexin today, 1st dose was at 4pm. <Oneyda Larry PA-C - Last Filed: 10/08/24 03:40> Related Data Allergies/Adverse Reactions: Allergies Allergy/AdvReac Type Severity Reaction Status Date / Time No Known Allergies Allergy Verified 10/07/24 22:59 <Oneyda Larry PA-C - Last Filed: 10/08/24 03:40> Review of Systems Review of Systems: All systems reviewed & are unremarkable except as noted in HPI and below <Oneyda Larry PA-C - Last Filed: 10/08/24 03:40> PMFSH Past Medical History Medical History: Medical History Basal cell carcinoma removed 07/2023, right shoulder Hyperlipidemia Paroxysmal atrial fibrillation Stage III chronic kidney disease <Oneyda Larry PA-C - Last Filed: 10/08/24 03:40> Surgical History Surgical History: Surgical History H/O rectal polypectomy H/O colonoscopy History of removal of skin mole <Oneyda Larry PA-C - Last Filed: 10/08/24 03:40> Family History Family History: Family History Father Family history of malignant neoplasm of bone Patient's father is Mother Family history of dementia Patient's mother is , Onset Age: 91 Other Family history of arthritis <Oneyda Larry PA-C - Last Filed: 10/08/24 03:40> Social History Social History: Social History Social History: Caffeine- coffee Smoking status: Never smoker Second hand tobacco smoke exposure: Yes Alcohol intake: current Drinks per week: 4 Alcohol use details: beer Substance use: never Substance use type: does not use Do You Feel Safe in your Home?: Yes Lack of Transportation: No Current Housing: Decline to Answer Concerned About Future Housing: Decline to Answer Difficulty Paying Gas/Electric Bills: Decline to Answer Difficulty Paying for Meds: Decline to Answer Currently Unemployed: Decline to Answer Difficulty w/ Childcare or Family Care: Decline to Answer Living arrangements: alone Occupation/Education: retired Gender identity (if verbalized by the patient): Male Spiritual care concerns: No Agree to blood products: Yes <Oneyda Larry PA-C - Last Filed: 10/08/24 03:40> Exam Narrative: GENERAL: Well-appearing, well-nourished, and in no acute distress. HEAD: Normocephalic, atraumatic. EYES: EOMI. ENT: Nares clear, no rhinorrhea or epistaxis. Mucous membranes moist. NECK: Supple. CHEST: Clear to auscultation. No respiratory distress. HEART: Regular rate and rhythm. No murmur heard. Normal peripheral pulses. ABDOMEN: Normoactive bowel sounds. Abdomen soft with tenderness in the suprapubic region and distension. No rebound or rigidity. No CVA tenderness EXTREMITIES: Normal range of motion. No edema. SKIN: Warm, dry, no rash. NEURO: No focal deficits. Alert and oriented x3 <Oneyda Larry PA-C - Last Filed: 10/08/24 03:40> Course Vital Signs Vital signs: Vital Signs Temperature 36.4 C L 10/07/24 23:02 Pulse Rate 84 10/07/24 23:02 Respiratory Rate 21 H 10/07/24 23:02 Blood Pressure 125/82 10/07/24 23:02 Pulse Oximetry 100 10/07/24 23:02 Oxygen Delivery Room Air 10/07/24 23:02 Temperature 36.4 C L 10/07/24 23:02 Pulse Rate 88 10/08/24 06:30 Respiratory Rate 34 H 10/08/24 06:30 Blood Pressure 84/59 L 10/08/24 06:30 Pulse Oximetry 84 L 10/08/24 06:30 Oxygen Delivery BiPAP 10/08/24 06:12 Oxygen Flow Rate 12 10/08/24 05:51 <Oneyda Larry PA-C - Last Filed: 10/08/24 03:40> Vital Signs Temperature 36.4 C L 10/07/24 23:02 Pulse Rate 84 10/07/24 23:02 Respiratory Rate 21 H 10/07/24 23:02 Blood Pressure 125/82 10/07/24 23:02 Pulse Oximetry 100 10/07/24 23:02 Oxygen Delivery Room Air 10/07/24 23:02 Temperature 36.4 C L 10/07/24 23:02 Pulse Rate 88 10/08/24 06:30 Respiratory Rate 34 H 10/08/24 06:30 Blood Pressure 84/59 L 10/08/24 06:30 Pulse Oximetry 84 L 10/08/24 06:30 Oxygen Delivery BiPAP 10/08/24 06:12 Oxygen Flow Rate 12 10/08/24 05:51 <Magdy Longo MD - Last Filed: 10/08/24 06:42> MDM - Abdominal Pain MDM Narrative Medical decision making narrative: 88-year-old male presents emergency department for suprapubic abdominal cramping and concern for urinary retention. See HPI for further history. Vitals with mild tachypnea of 21, otherwise unremarkable. Patient is afebrile and nontoxic appearing. Abdomen is soft with tenderness to the suprapubic region and distension. Bladder scan shows 586 mls. Ayala catheter placed with [address] abd/pelvis w/o contrast shows the following: Probable urinary bladder perforation Ayala catheter extending through the bladder dome with extensive extraperitoneal and possible intraperitoneal low-attenuation fluid. Recommendations for CT abdomen pelvis with IV contrast and with 2 minutes, 4 minutes and 6 minute prone delayed imaging throughout the abdomen and pelvis. There is probable large urinary bladder diverticula. Recommendations for urology consultation. Large hepatic likely neoplastic 19 cm mass. Bilateral left worse than right hydroureteronephrosis and can be evaluated better on subsequent imaging. I did discuss the above findings with stat-rad radiologist, Dr. Mauricio who also recommends 100cc of retrograde contrast through the Ayala catheter. Pending repeat imaging and labs at time of sign-out to Dr. Longo. <Oneyda Larry PA-C - Last Filed: 10/08/24 03:40> Lab Data Result diagrams: 10/08/24 02:26 10/08/24 03:48 <Oneyda Larry PA-C - Last Filed: 10/08/24 03:40> Labs: Lab Results 10/08/24 10/08/24 Range/Units 02:26 03:48 WBC 3.5 L (4.5-10.0) K/mm3 RBC 3.99 L (4.6-6.20) M/mm3 Hgb 12.2 L (14.0-18.0) g/dL Hct 37.9 L (42.0-52.0) % MCV 95.0 (80-100) fl MCH 30.6 (26-34) pg MCHC 32.2 (32-36) g/dl RDW 14.5 (11.5-14.5) % Plt Count 355 (150-375) k/mm3 MPV 9.4 (7.4-10.4) fl Immature Gran % (Auto) 0.3 (0-0.5) % Neut % (Auto) 86.6 H (45.5-73.1) % Lymph % (Auto) 9.9 L (18.3-44.2) % [place] % (Auto) 2.6 (2.6-8.5) % Eos % (Auto) 0.0 (0-4.4) % Baso % (Auto) 0.6 (0.2-1.2) % Lymph # (Auto) 0.34 L (0.9-3.2) K/mm3 [place] # (Auto) 0.1 (0.1-0.6) K/mm3 Eos # (Auto) 0.0 (0-0.3) K/mm3 Baso # (Auto) 0.0 (0.0-0.1) K/mm3 Abs Immat Gran (auto) 0.01 (0.00-0.031) K/mm3 Absolute Neuts (auto) 3.0 (1.3-6.7) K/mm3 Absolute Nucleated RBC 0.000 (0.0-0.012) K/mm3 Nucleated RBC % 0.0 (0.0-0.2) % Sodium 134 L (137-145) mmol/L Potassium 6.5 H* (3.4-5.0) mmol/L Chloride 95 L (98-107) mmol/L Carbon Dioxide 21 L (22-30) mmol/L Anion Gap 18 H (4-12) mmol/L BUN 71 H D (9-20) mg/dL Creatinine 4.68 H (0.7-1.3) mg/dL Estim Creat Clear Calc 9 ml/min Estimated GFR 12 L (59 - ) Glucose 110 (65-110) mg/dL Calcium 9.1 (8.4-10.2) mg/dL Total Bilirubin 1.2 (0.2-1.3) mg/dL AST 70 H (17-59) U/L ALT 27 (6-50) U/L Alkaline Phosphatase 85 (38-126) U/L Total Protein 7.0 (6.3-8.2) g/dL Albumin 4.2 (3.5-5.1) g/dL Lipase 174 (23-300) U/L Urine Color Yellow (Yellow) Urine Appearance Cloudy H (Clear) Urine pH 6.5 (5.0-9.0) Ur Specific [place] 1.016 (1.001-1.035) Urine Protein 1+ H (Negative) mg/dL Urine Glucose (UA) Negative (Negative) mg/dL Urine Ketones Negative (Negative) mg/dL Ur Blood (Man) 3+ H (Negative) Urine Nitrate Negative (Negative) Urine Bilirubin Negative (Negative) Urine Urobilinogen 0.2 (<2.0) mg/dL Add Ur Microanalysis Reviewed Leukocyte Esterase Rfl 2+ H (Negative) ROYA/UL Urine RBC >100 H (0-2) /hpf Urine WBC 21-50 H (0-3) /hpf Ur Squamous Epith Cells Few (Few) /hpf Urine Bacteria 4+ H /hpf Urine Casts 3-5 <Oneyda Larry PA-C - Last Filed: 10/08/24 03:40> Lab Results 10/08/24 10/08/24 Range/Units 02:26 03:48 WBC 3.5 L (4.5-10.0) K/mm3 RBC 3.99 L (4.6-6.20) M/mm3 Hgb 12.2 L (14.0-18.0) g/dL Hct 37.9 L (42.0-52.0) % MCV 95.0 (80-100) fl MCH 30.6 (26-34) pg MCHC 32.2 (32-36) g/dl RDW 14.5 (11.5-14.5) % Plt Count 355 (150-375) k/mm3 MPV 9.4 (7.4-10.4) fl Immature Gran % (Auto) 0.3 (0-0.5) % Neut % (Auto) 86.6 H (45.5-73.1) % Lymph % (Auto) 9.9 L (18.3-44.2) % [place] % (Auto) 2.6 (2.6-8.5) % Eos % (Auto) 0.0 (0-4.4) % Baso % (Auto) 0.6 (0.2-1.2) % Lymph # (Auto) 0.34 L (0.9-3.2) K/mm3 [place] # (Auto) 0.1 (0.1-0.6) K/mm3 Eos # (Auto) 0.0 (0-0.3) K/mm3 Baso # (Auto) 0.0 (0.0-0.1) K/mm3 Abs Immat Gran (auto) 0.01 (0.00-0.031) K/mm3 Absolute Neuts (auto) 3.0 (1.3-6.7) K/mm3 Absolute Nucleated RBC 0.000 (0.0-0.012) K/mm3 Nucleated RBC % 0.0 (0.0-0.2) % Sodium 134 L (137-145) mmol/L Potassium 6.5 H* (3.4-5.0) mmol/L Chloride 95 L (98-107) mmol/L Carbon Dioxide 21 L (22-30) mmol/L Anion Gap 18 H (4-12) mmol/L BUN 71 H D (9-20) mg/dL Creatinine 4.68 H (0.7-1.3) mg/dL Estim Creat Clear Calc 9 ml/min Estimated GFR 12 L (59 - ) Glucose 110 (65-110) mg/dL Calcium 9.1 (8.4-10.2) mg/dL Total Bilirubin 1.2 (0.2-1.3) mg/dL AST 70 H (17-59) U/L ALT 27 (6-50) U/L Alkaline Phosphatase 85 (38-126) U/L Total Protein 7.0 (6.3-8.2) g/dL Albumin 4.2 (3.5-5.1) g/dL Lipase 174 (23-300) U/L Urine Color Yellow (Yellow) Urine Appearance Cloudy H (Clear) Urine pH 6.5 (5.0-9.0) Ur Specific [place] 1.016 (1.001-1.035) Urine Protein 1+ H (Negative) mg/dL Urine Glucose (UA) Negative (Negative) mg/dL Urine Ketones Negative (Negative) mg/dL Ur Blood (Man) 3+ H (Negative) Urine Nitrate Negative (Negative) Urine Bilirubin Negative (Negative) Urine Urobilinogen 0.2 (<2.0) mg/dL Add Ur Microanalysis Reviewed Leukocyte Esterase Rfl 2+ H (Negative) ROYA/UL Urine RBC >100 H (0-2) /hpf Urine WBC 21-50 H (0-3) /hpf Ur Squamous Epith Cells Few (Few) /hpf Urine Bacteria 4+ H /hpf Urine Casts 3-5 <Magdy Longo MD - Last Filed: 10/08/24 06:42> Imaging Data Radiologist's impression: ITS Impressions Abdomen/Pelvis CT 10/08/24 06:19 Impression: Findings compatible with extra peritoneal bladder rupture anteriorly, as detailed above. Moderate abdominopelvic ascites again present. Urinary ascites is again not excluded, and the possibility of a ureteral injury cannot be completely excluded based on this exam. CT urogram would be required to better assess for ureteral injury. Severe bilateral hydronephrosis, left worse than right. Large bladder diverticula. Stable large solid hepatic mass, which could reflect large hemangioma versus other more aggressive lesion. Again, follow-up MR imaging recommended to further assess. Moderate right pleural effusion. Chest X-Ray 10/08/24 06:32 Impression: Minimal right pleural effusion with mild bibasilar chronic interstitial change or interstitial edema. <Oneyda Larry PA-C - Last Filed: 10/08/24 03:40> ITS Impressions Abdomen/Pelvis CT 10/08/24 06:19 Impression: Findings compatible with extra peritoneal bladder rupture anteriorly, as detailed above. Moderate abdominopelvic ascites again present. Urinary ascites is again not excluded, and the possibility of a ureteral injury cannot be completely excluded based on this exam. CT urogram would be required to better assess for ureteral injury. Severe bilateral hydronephrosis, left worse than right. Large bladder diverticula. Stable large solid hepatic mass, which could reflect large hemangioma versus other more aggressive lesion. Again, follow-up MR imaging recommended to further assess. Moderate right pleural effusion. Chest X-Ray 10/08/24 06:32 Impression: Minimal right pleural effusion with mild bibasilar chronic interstitial change or interstitial edema. <Magdy Longo MD - Last Filed: 10/08/24 06:42> Critical Care Time Critical Care Time Critical Care Time: Yes <Magdy Longo MD - Last Filed: 10/08/24 06:42> Total Critical Care Time: 75 <Magdy Longo MD - Last Filed: 10/08/24 06:42> Discharge Plan Discharge Clinical Impression: Bladder rupture, Acute kidney injury, Atrial fibrillation with rapid ventricular response, Pleural effusion, Acute hypoxemic respiratory failure <Oneyda Larry PA-C - Last Filed: 10/08/24 03:40> Patient Disposition: Still a Patient <Oneyda Larry PA-C - Last Filed: 10/08/24 03:40> Condition: Stable <Oneyda Larry PA-C - Last Filed: 10/08/24 03:40> Instructions: Antibiotic Form <Oneyda Larry PA-C - Last Filed: 10/08/24 03:40> Patient Language: Niuean <Oneyda Larry PA-C - Last Filed: 10/08/24 03:40> Prescriptions: No Action memantine [Namenda] 5 mg tablet 5 mg PO BID Qty: 30 1RF metoprolol succinate 25 mg tablet extended release 24 hr 12.5 mg PO DAILY Qty: 30 1RF Eliquis 2.5 mg tablet 2.5 mg PO BID Qty: 30 0RF lovastatin 20 mg tablet See Rx Instructions .ROUTE .COMPLEX Qty: 90 1RF Dose Instruction: TAKE 1 TABLET BY MOUTH EVERY DAY Rx Instructions: TAKE 1 TABLET BY MOUTH EVERY DAY <Oneyda Larry PA-C - Last Filed: 10/08/24 03:40> Follow-up/Referrals: Hakan Chavez MD [Primary Care Provider] - <Oneyda Larry PA-C - Last Filed: 10/08/24 03:40> Time of Disposition: 06:42 <Oneyda Larry PA-C - Last Filed: 10/08/24 03:40> 06:42 <Magdy Longo MD - Last Filed: 10/08/24 06:42> Sign Out Sign Out Data: Patient Sign Out occurred on 10/08/24 at 04:02. Patient's care was discussed, and care was transferred from Oneyda Larry PA-C to Magdy Longo MD. <Oneyda Larry PA-C - Last Filed: 10/08/24 03:40>
[2024-10-08 02:33] LABS: Basophils Percent Auto 0.6 % (0.2-1.2); Hematocrit 37.9 % (42.0-52.0); Hemoglobin 12.2 g/dL (14.0-18.0); Immature Granulocyte Absolute 0.01 K/mm3 (0.00-0.031); Immature Granulocyte Percent A 0.3 % (0-0.5); Lymphocytes Absolute Auto 0.34 K/mm3 (0.9-3.2); Lymphocytes Percent Auto 9.9 % (18.3-44.2); Mean Corpuscular HGB Conc 32.2 g/dl (32-36); Mean Corpuscular Hemoglobin 30.6 pg (26-34); Mean Platelet Volume 9.4 fl (7.4-10.4); Monocytes Absolute Auto 0.1 K/mm3 (0.1-0.6); Monocytes Percent Auto 2.6 % (2.6-8.5); Neutrophils Percent Auto 86.6 % (45.5-73.1); Platelet Count Result 355 k/mm3 (150-375); Red Blood Count 3.99 M/mm3 (4.6-6.20); Red Cell Distribution Width 14.5 % (11.5-14.5); White Blood Count 3.5 K/mm3 (4.5-10.0)
[2024-10-08 02:50] LABS: Add Urine Microscopic? YES; Appearance Urine Cloudy (Clear); Bacteria Urine 4+ /hpf; Bilirubin Urine Negative (Negative); Blood Urine 3+ (Negative); Color Urine Yellow (Yellow); Glucose Urine UA Negative (Negative); Ketones Urine Negative (Negative); Leukocyte Esterase Ur 2+ LEU/UL (Negative); Need Manual Microscopic Reviewed; Nitrate Urine Negative (Negative); Protein Urine 1+ mg/dL (Negative); RBC Urine >100 /hpf (0-2); Specific Grav Ur 1.016 (1.001-1.035); Squamous Epithelial Cell Urine Few /hpf (Few); Urobilinogen Urine 0.2 mg/dL (<2.0); WBC Urine 21-50 /hpf (0-3); pH Urine 6.5 (5.0-9.0)
[2024-10-08 04:28] LABS: Alanine Aminotransferase 27 U/L (6-50); Albumin Level 4.2 g/dL (3.5-5.1); Alkaline Phosphatase 85 U/L (38-126); Anion Gap 18 mmol/L (4-12); Aspartate Amino Transferase 70 U/L (17-59); Bilirubin,Total 1.2 mg/dL (0.2-1.3); Blood Urea Nitrogen 71 mg/dL (9-20); Calcium 9.1 mg/dL (8.4-10.2); Carbon Dioxide 21 mmol/L (22-30); Chloride 95 mmol/L (98-107); Estimated CRCL calculation 9 ml/min; Estimated Glomerular Filt Rate 12; Glucose 110 mg/dL (65-110); Lipase 174 U/L (23-300); Potassium 6.5 mmol/L (3.4-5.0); Sodium 134 mmol/L (137-145)
--- NOTE | 2024-10-08 04:30 | ECG_ITS ---
Test Date: 2024-10-08 04:56:03 Measurements Intervals [place] Rate: 119 P: 0 WA: 0 QRS: 40 QRSD: 110 T: 55 QT: 319 QTc: 449 Interpretive Statements ATRIAL FIBRILLATION WITH RAPID VENTRICULAR RESPONSE IVCD- QRS CHANGES IRBBB/ILBBB BASELINE ARTIFACT- I, II, III, AVR, AVL, AVF ABNORMAL ECG Compared to ECG 09/29/2024 18:01:03 HEART RATE HAS INCREASED INTERMITTENT IRBBB/ILBBB NOW PRESENT Electronically Signed On 10-08-2024 05:37:35 CDT by Modesto Sagastume D.O.
[2024-10-08] MEDS: CALCIUM GLUCONATE 1,000 MG/10 ML VIAL 1000 MG IV PUSH (05:00)
[2024-10-08] MEDS: DEXTROSE 50% 25 GM/50 ML SYRINGE IV PUSH (05:00)
[2024-10-08] MEDS: INSULIN HUMAN REGULAR (*BKC) 100 UNITS/ML 10 UNITS IV PUSH (05:01)
[2024-10-08] MEDS: SODIUM CHLORIDE 0.9% IV 1,000 ML 999 ML IV CONT (05:01)
--- NOTE | 2024-10-08 05:06 | PC.NURSE ---
0503: Pt began vomiting brownish/red emesis. Pt head of bed elevated and blue emesis bag given. Md Longo notified and verbally orders NG tube insertion at this time.
[2024-10-08] MEDS: METOPROLOL TARTRATE INJ 5 MG/5 ML VIAL IV PUSH (05:12)
--- NOTE | 2024-10-08 05:16 | PC.NURSE ---
Pt aspirated during his vomiting episode. Pt oxygen is 71 on room air. Md Longo notified. Pt placed on non rebreather at 15L at this time.
[2024-10-08] MEDS: ONDANSETRON INJ 4 MG/2 ML VIAL IV PUSH (05:20)
--- NOTE | 2024-10-08 05:26 | PC.NURSE ---
This RN and SEDRICK Blair attempted to place pt NG tube in both nares. Left nare we met resistance. Right nare SEDRICK Blair was able to get tube down 60 at the lip however, we did not hear any bubbling sound when we pushed syringe through tube. SEDRICK Blair attempted again and tubing recoiled. MD Longo notified and states that pt is okay without NG tube at this time.
[2024-10-08] MEDS: IPRATROPIUM 0.5 MG/ALBUTEROL SULFATE 2.5 MG AMPUL.NEB 3 ML INHALATION (05:27)
[2024-10-08] MEDS: dilTIAZem HCl INJ 25 MG/5 ML VIAL 10 MG IV PUSH (06:03)
[2024-10-08] MEDS: dilTIAZem 100 MG/100 ML 100 MG/100 ML BAG IV CONT (06:03)
--- NOTE | 2024-10-08 06:22 | PC.NURSE ---
Rn checked Micormedex to see if rocephin and cardizem go together and it states they are IV compatible.
--- NOTE | 2024-10-08 06:35 | PC.NURSE ---
Per ED respiratory Shontelle, she verbally states to chnage FiO2 from 55% to 70% on pt BIPAP settings due to pt satting at 84%.
--- NOTE | 2024-10-08 06:47 | PC.NURSE ---
per ED respiratory Shontelle, she verbally orders to increase BIPAP settings from O2 70% to 90%.
[2024-10-08 06:54] LABS: INR 1.1; Prothrombin Time 14.3 Seconds (11.1-14.7)
--- NOTE | 2024-10-08 07:09 | P.CONUR_ITS ---
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 This may be, also, related to incomplete bladder emptying but I can not exclude some kind is obstructive process * Acute kidney injury likely resulting from urinary extravasation * At this point I will simply plan catheter drainage as management for his extraperitoneal bladder rupture. * Wants PT PTT have normalized we can consider placement of a pelvic drain, particularly if his renal function does not improve with catheter drainage * Will repeat imaging tomorrow and consider left ureteral stent placement if hydronephrosis has not improved/resolved Urology Consult Note HPI Date Seen: 10/08/24 Primary Care Provider: Hakan Chavez MD Consult Narrative Narrative: Gregory Garcia is a 88 year old male previously unknown to our practice who presents to the emergency department with acute onset pelvic/suprapubic pain last evening around 8:30 p.m.. He has no prior known urological history although his family reports he has had difficulty voiding in the past and they are uncertain as to when he last urinated. CT imaging is rather extraordinary, demonstrating, what appears to be an extraperitoneal bladder rupture with urine extravasating into the pelvis and extensively throughout the retroperitoneum. An informal cystogram (contrast injection into the Ayala catheter in the emergency department) shows extravasation into this extraperitoneal fluid collection. Additionally, he has left hydronephrosis with some moderate left renal atrophy. Patient is on a BiPAP and not able to supply a reliable history at this time. Complicating this issue is the fact he has atrial fibrillation is anticoagulated. His family tells me that he had been on warfarin until several days ago when he was instructed to stop with plans to start Eliquis in the near future. He has yet to start the Eliquis. Review of Systems 2 Review of Systems: ROS unobtainable: Yes unobtainable due to medical condition PMFSH Past Medical History Medical History Basal cell carcinoma removed 07/2023, right shoulder Hyperlipidemia Paroxysmal atrial fibrillation Stage III chronic kidney disease Surgical History Surgical History H/O rectal polypectomy H/O colonoscopy History of removal of skin mole Family History Family History Father Family history of malignant neoplasm of bone Patient's father is Mother Family history of dementia Patient's mother is , Onset Age: 91 Other Family history of arthritis Social History Social History Social History: Caffeine- coffee Smoking status: Never smoker Second hand tobacco smoke exposure: Yes Alcohol intake: current Drinks per week: 4 Alcohol use details: beer Substance use: never Substance use type: does not use Do You Feel Safe in your Home?: Yes Lack of Transportation: No Current Housing: Decline to Answer Concerned About Future Housing: Decline to Answer Difficulty Paying Gas/Electric Bills: Decline to Answer Difficulty Paying for Meds: Decline to Answer Currently Unemployed: Decline to Answer Difficulty w/ Childcare or Family Care: Decline to Answer Living arrangements: alone Occupation/Education: retired Gender identity (if verbalized by the patient): Male Spiritual care concerns: No Agree to blood products: Yes Meds Home Medications and Allergies Home Medications ?Medication ?Instructions ?Recorded ?Confirmed ?Type lovastatin 20 mg tablet See Rx Instructions .Route 06/10/24 10/05/24 Rx .COMPLEX #90 tabs apixaban 2.5 mg tablet (Eliquis) 2.5 mg PO BID #30 tabs 10/05/24 10/05/24 Rx memantine 5 mg tablet (Namenda) 5 mg PO BID #30 tabs 10/05/24 10/05/24 Rx metoprolol succinate 25 mg 12.5 mg (1/2 x 25 mg) PO DAILY #30 10/05/24 10/05/24 Rx tablet,extended release 24 hr tabs Allergies Allergy/AdvReac Type Severity Reaction Status Date / Time No Known Allergies Allergy Verified 04/09/25 22:59 Vital Signs Vital Signs - 24 hr 10/07/24 23:02 10/08/24 02:33 10/08/24 04:00 Temperature 97.5 F L Pulse Rate 84 79 105 H Respiratory Rate 21 H 18 18 Blood Pressure 125/82 119/79 121/82 Pulse Oximetry 100 99 98 Oxygen Delivery Room Air Oxygen Flow Rate 10/08/24 05:04 10/08/24 05:12 10/08/24 05:18 Temperature Pulse Rate 117 H 127 H Respiratory Rate 21 H Blood Pressure 98/66 L Pulse Oximetry 98 71 L Oxygen Delivery Room Air Oxygen Flow Rate 10/08/24 05:18 10/08/24 05:21 10/08/24 05:24 Temperature Pulse Rate 107 H Respiratory Rate 31 H Blood Pressure 132/75 Pulse Oximetry 79 L 95 Oxygen Delivery Non-Rebreather Mask Non-Rebreather Mask Oxygen Flow Rate 15 15 10/08/24 05:28 10/08/24 05:30 10/08/24 05:30 Temperature Pulse Rate 122 H 116 H Respiratory Rate 30 H 22 H Blood Pressure 154/111 H Pulse Oximetry 100 Oxygen Delivery Non-Rebreather Mask Oxygen Flow Rate 15 10/08/24 05:38 10/08/24 05:46 10/08/24 05:51 Temperature Pulse Rate 127 H 119 H Respiratory Rate 30 H 29 H Blood Pressure 152/73 H Pulse Oximetry 88 L Oxygen Delivery High Flow Therapy with Na Oxygen Flow Rate 12 10/08/24 06:01 10/08/24 06:03 10/08/24 06:04 Temperature Pulse Rate 141 H 147 H 81 Respiratory Rate 22 H 30 H Blood Pressure 145/81 H 145/81 H 145/81 H Pulse Oximetry 94 98 Oxygen Delivery Oxygen Flow Rate 10/08/24 06:05 10/08/24 06:12 10/08/24 06:16 Temperature Pulse Rate 82 78 Respiratory Rate 25 H 35 H Blood Pressure 90/47 L Pulse Oximetry 98 94 91 Oxygen Delivery BiPAP BiPAP Oxygen Flow Rate 10/08/24 06:30 10/08/24 06:46 Temperature Pulse Rate 88 86 Respiratory Rate 34 H 31 H Blood Pressure 84/59 L 88/66 L Pulse Oximetry 84 L 84 L Oxygen Delivery Oxygen Flow Rate Exam 2 Const: General: no acute distress Resp: Effort & Inspection: normal respiratory effort GI: Inspection: distended GI Palp: Yes abdominal tenderness and No Guarding due to palpation present (GI) Urinary Catheter: Urinary Catheter: patent and draining, urine cloudy and urine pink Results Labs 10/08/24 02:26 10/08/24 03:48 Labs: Short CBC 10/08/24 Range/Units 02:26 WBC 3.5 L (4.5-10.0) K/mm3 Hgb 12.2 L (14.0-18.0) g/dL Hct 37.9 L (42.0-52.0) % Plt Count 355 (150-375) k/mm3 BMP 10/08/24 03:48 Sodium 134 L Potassium 6.5 H* Chloride 95 L Carbon Dioxide 21 L BUN 71 H D Creatinine 4.68 H Glucose 110 Calcium 9.1 Liver Function 10/08/24 Range/Units 03:48 Total Bilirubin 1.2 (0.2-1.3) mg/dL AST 70 H (17-59) U/L ALT 27 (6-50) U/L Alkaline Phosphatase 85 (38-126) U/L Albumin 4.2 (3.5-5.1) g/dL Urine 10/08/24 Range/Units 02:26 Urine Color Yellow (Yellow) Urine Appearance Cloudy H (Clear) Urine pH 6.5 (5.0-9.0) Ur Specific [place] 1.016 (1.001-1.035) Urine Protein 1+ H (Negative) mg/dL Urine Glucose (UA) Negative (Negative) mg/dL
--- NOTE | 2024-10-08 08:29 | PM.IMHP ---
H&P: HPI History of Present Illness Date/Time: 10/08/24 08:29 Chief Complaint: Abdominal pain Narrative: 88yo male with HLD, stage III CKD, AFib on anticoagulation, and hx of skin cancer with resection around right lateral neck who presents to the ED with daughter with complaints of lower abdominal pain. Patient's family at bedside to assist with history. Patient has been having falls recently over the past month. He was seen here on September 29 after a fall and found to have bruising and skin tears but no fracture. The UA was acquired as a cath sample. UA noted but did not reflex to urine culture. He walks with a cane at home and walker when out of the house. He has occasional lightheadedness with standing. Gait and balance is off. He has been working with PT and having plans for in home care. He saw his PCP on October 05 for follow-up and was started on Namenda (first dose taken on October 06) for memory issues. His Warfarin also was stopped with plans to start Eliquis but he has not taken this yet. INR intermittently therapeutic but was 1.1 on October 06. He did give a urine sample on October 06 as well and was started on cephalexin for UTI. UCx returned Enterococcus that was maurice-sensitive. He has been having issues with hesitancy with urination but no hematuria or dysuria. He has to strain sometimes to void. He is not aware if he has an enlarged prostate. Weight has been stable for the past few months. No fever or chills. No SOB, CP, pleuritic CP, cough, chronic lung disease, heart disease, hx of [place], hx of CHF, nausea, vomiting, melana, hematochezia, diarrhea or constipation. He does not feel confused at this time. He does have a hx of esophageal stricture requiring dilation but unclear when the last time was. He also has trouble swallowing solid foods but does well with soft foods (pudding, apple sauce) and shakes. He developed acute onset of abdominal pain last night after trying to void. He did strain to void. He was unable to urinated in several hours. The patient is unable to tell me the last time he urinated. He was brought into the ED for evaluation. On presentation, vital signs were stable initially. He did develop acute hypoxic respiratory failure with SpO2 dropping to 71% on RA and became tachycardia. No fevers but blood pressure dropped to 84/59 and he became tachypneic. WBC low at 3500 with Hgb 12.2 and normal platelet count. Potassium 6.5 with bicarb 21 (AG 18), BUN 71 and Cr 4.7. Cr 1.35 9 days before and normal in July. LFTs and Lipase essentially normal. UA with 1+ protein, 3+ blood, 2+ LE, >100 RBC, 21-50 WBC and 4+ bacteria. EKG showing AFib/RVR with rate of 119 and IVCD. CXR showing minimal right pleural effusion with mild bibasilar chronic interstitial changes vs edema. CT Abd/pelvis showing multiple findings including bladder perforation, ascites, severe bilateral hydronephrosis and liver mass. The hyperkalemia was treated appropriately. He did received metoprolol 5mg IV once and Diltiazem 10mg IV once and placed on Diltiazem drip for AFib/RVR. Rocephin started. He was admitted for further care. Review of Systems Review of Systems: All systems reviewed & are unremarkable except as noted in HPI and below PMFSH Past Medical History Medical History (Updated 10/08/24 @ 11:23 by Magdy Sanabria MD) Esophageal stricture Basal cell carcinoma removed 07/2023, right shoulder Hyperlipidemia Paroxysmal atrial fibrillation Stage III chronic kidney disease Surgical History Surgical History H/O rectal polypectomy H/O colonoscopy History of removal of skin mole Family History Family History Father Family history of malignant neoplasm of bone Patient's father is Mother Family history of dementia Patient's mother is , Onset Age: 91 Other Family history of arthritis Social History Social History (Updated 10/08/24 @ 11:09 by Magdy Sanabria MD) Social History: Lives at home with his dtr. Lifelong nonsmoker. Denies alcohol or drug use. They have a dog at home Code status -full Surrogate decision maker -daughter Smoking status: Never smoker Second hand tobacco smoke exposure: Yes Alcohol intake: current Drinks per week: 4 Alcohol use details: beer Substance use: never Substance use type: does not use Last use: 05/2025 Do You Feel Safe in your Home?: Yes Lack of Transportation: No Lack of Food: Never True Current Housing: Decline to Answer Concerned About Future Housing: Decline to Answer Difficulty Paying Gas/Electric Bills: Decline to Answer Difficulty Paying for Meds: Decline to Answer Currently Unemployed: Decline to Answer Education: High School Diploma/GED Difficulty w/ Childcare or Family Care: Decline to Answer Living arrangements: alone Occupation/Education: retired Gender identity (if verbalized by the patient): Male Spiritual care concerns: No Agree to blood products: Yes Meds Home Medications and Allergies Home Medications ?Medication ?Instructions ?Recorded ?Confirmed ?Type lovastatin 20 mg tablet See Rx Instructions .Route 06/10/24 10/05/24 Rx .COMPLEX #90 tabs apixaban 2.5 mg tablet (Eliquis) 2.5 mg PO BID #30 tabs 10/05/24 10/05/24 Rx memantine 5 mg tablet (Namenda) 5 mg PO BID #30 tabs 10/05/24 10/05/24 Rx metoprolol succinate 25 mg 12.5 mg (1/2 x 25 mg) PO DAILY #30 10/05/24 10/05/24 Rx tablet,extended release 24 hr tabs cephalexin 500 mg capsule 500 mg PO Q12H UTI 10/08/24 10/08/24 History warfarin 6 mg tablet 6 mg PO DAILY 10/08/24 10/08/24 History Allergies Allergy/AdvReac Type Severity Reaction Status Date / Time No Known Allergies Allergy Verified 10/07/24 22:59 Vital Signs Vital Signs - 24 hr 10/07/24 23:02 10/08/24 02:33 10/08/24 04:00 Temperature 97.5 F L Pulse Rate 84 79 105 H Respiratory Rate 21 H 18 18 Blood Pressure 125/82 119/79 121/82 Pulse Oximetry 100 99 98 Oxygen Delivery Room Air Oxygen Flow Rate 10/08/24 05:04 10/08/24 05:12 10/08/24 05:18 Temperature Pulse Rate 117 H 127 H Respiratory Rate 21 H Blood Pressure 98/66 L Pulse Oximetry 98 71 L Oxygen Delivery Room Air Oxygen Flow Rate 10/08/24 05:18 10/08/24 05:21 10/08/24 05:24 Temperature Pulse Rate 107 H Respiratory Rate 31 H Blood Pressure 132/75 Pulse Oximetry 79 L 95 Oxygen Delivery Non-Rebreather Mask Non-Rebreather Mask Oxygen Flow Rate 15 15 10/08/24 05:28 10/08/24 05:30 10/08/24 05:30 Temperature Pulse Rate 122 H 116 H Respiratory Rate 30 H 22 H Blood Pressure 154/111 H Pulse Oximetry 100 Oxygen Delivery Non-Rebreather Mask Oxygen Flow Rate 15 10/08/24 05:38 10/08/24 05:46 10/08/24 05:51 Temperature Pulse Rate 127 H 119 H Respiratory Rate 30 H 29 H Blood Pressure 152/73 H Pulse Oximetry 88 L Oxygen Delivery High Flow Therapy with Na Oxygen Flow Rate 12 10/08/24 06:01 10/08/24 06:03 10/08/24 06:04 Temperature Pulse Rate 141 H 147 H 81 Respiratory Rate 22 H 30 H Blood Pressure 145/81 H 145/81 H 145/81 H Pulse Oximetry 94 98 Oxygen Delivery Oxygen Flow Rate 10/08/24 06:05 10/08/24 06:12 10/08/24 06:16 Temperature Pulse Rate 82 78 Respiratory Rate 25 H 35 H Blood Pressure 90/47 L Pulse Oximetry 98 94 91 Oxygen Delivery BiPAP BiPAP Oxygen Flow Rate 10/08/24 06:30 10/08/24 06:46 10/08/24 07:26 Temperature Pulse Rate 88 86 89 Respiratory Rate 34 H 31 H 25 H Blood Pressure 84/59 L 88/66 L 111/54 L Pulse Oximetry 84 L 84 L 98 Oxygen Delivery Oxygen Flow Rate 10/08/24 07:30 10/08/24 08:02 Temperature Pulse Rate 87 84 Respiratory Rate 22 H 16 Blood Pressure 97/55 L 107/64 Pulse Oximetry 97 Oxygen Delivery Oxygen Flow Rate Exam Narrative: AF 97.5 107/64 84 16 97% bipap Gen - ill appearing thin male who is tachypneic and toxic-appearing lying semi recumbent in bed with bipap in place HEENT - normocephalic. Atraumatic. Pupils equal round and reactive. Extraocular motions intact. Sclera clear and anicteric. No facial asymmetry. Neck - neck was supple. Surgical changes to the right lateral neck. No dominant adenopathy, thyromegaly or masses. 2+ carotid upstrokes Chest - coarse BS with decreased BS in the bases. tachypneic CV - irregularly irregular and tachycardic. Distant S1-S2. Abd - soft with voluntary guarding in the lower quadrants. Nondistended. Hypoactive bowel sounds. No organomegaly - Ayala secured draining salud colored urine. Ext - 2+ pitting pedal edema. Distal pulses difficult to palpate. Cool to touch with mottling to his knees bilaterally. Poor cap refill to the toes. Negative Homans sign. Neuro - patient is alert and oriented x4. Strength is 5/5 in upper extremities Bilateral LE weakness 4-/5 with hip flexors, dorsiflexion and plantar flexion at the ankle. Cranial nerves 2-12 are intact. Speech is clear. Psych - normal mood and affect. Patient is pleasant and cooperative. Skin - as above. bruising noted in various stages of healing bilateral UE with healing skin tears noted bilateral upper arms. H&P: Results Labs Labs: Short CBC 10/08/24 Range/Units 02:26 WBC 3.5 L (4.5-10.0) K/mm3 Hgb 12.2 L (14.0-18.0) g/dL Hct 37.9 L (42.0-52.0) % Plt Count 355 (150-375) k/mm3 BMP 10/08/24 03:48 Sodium 134 L Potassium 6.5 H* Chloride 95 L Carbon Dioxide 21 L BUN 71 H D Creatinine 4.68 H Glucose 110 Calcium 9.1 Liver Function 10/08/24 Range/Units 03:48 Total Bilirubin 1.2 (0.2-1.3) mg/dL AST 70 H (17-59) U/L ALT 27 (6-50) U/L Alkaline Phosphatase 85 (38-126) U/L Albumin 4.2 (3.5-5.1) g/dL Urine 10/08/24 Range/Units 02:26 Urine Color Yellow (Yellow) Urine Appearance Cloudy H (Clear) Urine pH 6.5 (5.0-9.0) Ur Specific [place] 1.016 (1.001-1.035) Urine Protein 1+ H (Negative) mg/dL Urine Glucose (UA) Negative (Negative) mg/dL Assessment and Plan Assessment and plan (1) Acute hypoxemic respiratory failure: Code(s): J96.01 - Acute respiratory failure with hypoxia Status: Acute Assessment and Plan: Patient was on room air on admission but quickly developed hypoxia requiring nonrebreather then bipap. CXR showing minimal right pleural effusion with mild bibasilar chronic interstitial change or interstitial edema. CT Abd showing a 5 mm right middle lobe nodule and moderate right pleural effusion. Consider aspiration. Consider PE since he has been off his Warfarin and not yet started on Eliquis. Consider PNA vs CHF. Continue BiPAP therapy. Check ABG. Wean off as tolerated. (2) Sepsis: Code(s): A41.9 - Sepsis, unspecified organism Status: Acute Assessment and Plan: Patient has developed symptoms of severe sepsis with tachycardia, hypoxia, PIO, and HoTN. Clinically patient with poor BP soft but better now. [place] related to peritonitis from bladder perforation, urine in abd cavity and UTI. Consider bacteremia as etiology of sepsis. Will repeat labs and include PCT and Lactic. Check BCx Adjust abx to cover UTI and broad spectrum (3) Extraperitoneal rupture of bladder: Code(s): N32.89 - Other specified disorders of bladder Status: Acute Assessment and Plan: CT abd/pelvis concerning for bladder perforation. CR cystogram showing Ayala catheter balloon appears to extend beyond the anterior margin of the bladder wall. Contrast extravasates from the anterior bladder, more apparent on prone images, compatible with extraperitoneal bladder rupture. There are large bilateral bladder diverticula, which are prominently distended with urine, and filled with administered contrast. Moderate abdominopelvic ascites, possible urinary ascites again present. Severe bilateral hydronephrosis noted. Ayala was placed and urology consulted. Hopefully bladder will repair itself with decompression but may need surgical intervention and/or cystoscopy with ureteral stent placement if hydronephrosis persists. If unable to improve with conventional means, may need to proceed with nephrostomy tubes. Monitor UOP and renal function. Appreciate urology input (4) Hyperkalemia: Code(s): E87.5 - Hyperkalemia Status: Acute Assessment and Plan: Potassium 6.5 on admission felt related to PIO and possibly re-absorption from urine in the pelvis. EKG showing no peaked T waves. Hyperkalemia treated appropriately Follow up labs and continue to treat as needed. (5) Acute kidney injury: Code(s): N17.9 - Acute kidney failure, unspecified Status: Acute Assessment and Plan: Patient with PIO with Cr 4.7 and BUN 71. He has had normal baseline Cr last year but 1.3-1.6 earlier this year. May have been developing this urine retention over time resulting in the increasing Cr. Elevated Cr related to urine in the pelvis as well. Hold on IV fluids at this time since he is clinically fluid overloaded Monitor UOP, renal function and electrolyes (6) UTI (urinary tract infection): Code(s): N39.0 - Urinary tract infection, site not specified Status: Acute Assessment and Plan: UA on 09/29/24 did not reflex to culture but UA repeated with UCx growing 100K colonies of enterococcus on 10/06 that is maurice-sensitive. UCx repeated. Add BCx. Advance abx. (7) Peritonitis: Code(s): K65.9 - Peritonitis, unspecified Status: Acute Assessment and Plan: As above (8) Bilateral hydronephrosis: Code(s): N13.30 - Unspecified hydronephrosis Status: Acute Assessment and Plan: As above (9) Liver mass: Code(s): R16.0 - Hepatomegaly, not elsewhere classified Status: Acute Assessment and Plan: CT scan also showing an extremely large lobulated mildly heterogeneous mass probably arising from the inferior right hepatic lobe and extending inferiorly, measuring 16.7 x 11.0 x 14.5 cm in size. LFTs are okay. He does have a hx of basal cell. Will plan for further evaluation this admission or as outpatient (10) Paroxysmal atrial fibrillation: Code(s): I48.0 - Paroxysmal atrial fibrillation Status: Acute Assessment and Plan: Patient developed AFib/RVR in the ED. Probably chronic AFib (EKG on 09/29/24 and in 2019 show AFib) He was given metoprolol 5mg IV once then Diltiazem 10mg IV once before starting Diltiazem 5mg/hr drip. This may have resulted in soft BP. Monitor on tele. He was being transitioned from Warfarin to Eliquis but has not started Eliquis yet. INR 1.1 today Wean to metoprolol when able. Resume anticoagulation when able (11) Stage III chronic kidney disease: Code(s): N18.3 - Chronic kidney disease, stage 3 (moderate) Status: Acute Assessment and Plan: As above (12) Memory deficit: Code(s): R41.3 - Other amnesia Status: Acute Assessment and Plan: Patient has a hx of memory issues and was started on Namenda recently Hold for now but resume when more stable Plan DVT Prophylaxis - SCDs Code status - full 45 minutes spent on critical care time.
--- NOTE | 2024-10-08 09:19 | ADMGEN ---
This patient, Gregory Garcia, was admitted to IMU Room 205-01. Patient/family oriented to hospital policies and general routines including ID bracelet, bed and alarms, visiting hours, pain management, procedures, bathroom and other care routines, personal items, smoking policy, room service/diet, and visiting hours. Information on how to activate the Rapid Response Team has been discussed. Patient/Family are encouraged to report perceived risks to care and to ask questions if they do not understand what they are told or what they should do.
[2024-10-08 11:23] LABS: Basophils Percent Auto 0.5 % (0.2-1.2); Hematocrit 36.8 % (42.0-52.0); Hemoglobin 11.7 g/dL (14.0-18.0); Immature Granulocyte Absolute 0.01 K/mm3 (0.00-0.031); Immature Granulocyte Percent A 0.5 % (0-0.5); Lymphocytes Absolute Auto 0.26 K/mm3 (0.9-3.2); Lymphocytes Percent Auto 11.7 % (18.3-44.2); Mean Corpuscular HGB Conc 31.8 g/dl (32-36); Mean Corpuscular Hemoglobin 30.8 pg (26-34); Mean Corpuscular Volume 96.8 fl (80-100); Mean Platelet Volume 9.7 fl (7.4-10.4); Monocytes Absolute Auto 0.2 K/mm3 (0.1-0.6); Monocytes Percent Auto 7.7 % (2.6-8.5); Neutrophils Absolute Auto 1.8 K/mm3 (1.3-6.7); Neutrophils Percent Auto 79.6 % (45.5-73.1); Platelet Count Result 280 k/mm3 (150-375); Red Cell Distribution Width 14.6 % (11.5-14.5); White Blood Count 2.2 K/mm3 (4.5-10.0)
[2024-10-08 11:35] LABS: INR 1.1; Partial Thromboplastin Time 26.1 Seconds (22.3-36.8); Prothrombin Time 14.9 Seconds (11.1-14.7)
[2024-10-08 11:42] LABS: Alveolar/Arterial O2 Gradient 291.2 mmHg; Base Excess ABG -2.2 mEq/l (+/-2.0); Fractional Inspired Oxygen 80 %; HCO3 ABG 19.5 mEq/l (22.0-26.0); Oxygen Content ABG 17.4 %vol (16.0-22.0); Oxygen Saturation ABG 99.7 % (95.0-100.0); Oxyhemoglobin 98.8 % THb (90.0-100.0); PCO2 ABG 25.2 mmHg (35.0-45.0); PO2 ABG 252.7 mmHg (80.0-100.0); PO2 FiO2 Ratio Arterial Blood 3.16 %; Total Hemoglobin 12.1 g/dL (12.0-18.0)
[2024-10-08 11:45] LABS: Device BIPAP; Modified Allen's Test Pass; Site Drawn LEFT RADIAL; pH ABG 7.507 (7.350-7.450)
[2024-10-08 11:46] LABS: Expiratory Pressure 6 cmH2O; Inspiratory Pressure 12 cmH2O
[2024-10-08 11:59] LABS: Crenated RBC 1+; Platelet Estimate Adequate (Adequate); Schistocytes None Seen
[2024-10-08 12:33] LABS: Lactic Acid Reflex 5.7 mmol/L (0.7-2.0)
[2024-10-08] MEDS: PERFLUTREN LIPID MICROSPHERES 1.5 ML VIAL DILUTED TO 10 ML TOTAL VOLUME IV PUSH (12:45)
[2024-10-08 12:58] LABS: Reflex Lactic Acid Yes or No Add Lactic
--- NOTE | 2024-10-08 13:12 | IVDEFINITY ---
Prior to administration of IV Definity the patient was educated on the risks and benefits of the imaging enhancing agent including potential adverse side effects. The patient verbalized understanding. Allergies were verified. No exclusion criteria were identified and at least one of the following inclusion criteria were met: 1) physician request, 2) patient technically difficult to image (per the [place] [employer] guidelines of two or more segments not discernable within the apical view), or 3) questionable left ventricular function. ?
--- NOTE | 2024-10-08 13:12 | IVDEFINITY ---
Patient had adverse reaction to Definity (back pain). Pain seemed to reduce after 5-10 mins.
[2024-10-08 13:26] LABS: MRSA (PCR) NOT DETECTED (NOT DETECTE)
[2024-10-08 13:30] LABS: Alanine Aminotransferase 22 U/L (6-50); Albumin Level 3.3 g/dL (3.5-5.1); Alkaline Phosphatase 70 U/L (38-126); Anion Gap 18 mmol/L (4-12); Aspartate Amino Transferase 63 U/L (17-59); Bilirubin,Total 0.9 mg/dL (0.2-1.3); Blood Urea Nitrogen 68 mg/dL (9-20); Calcium 8.8 mg/dL (8.4-10.2); Carbon Dioxide 18 mmol/L (22-30); Chloride 99 mmol/L (98-107); Estimated CRCL calculation 10 ml/min; Estimated Glomerular Filt Rate 14; Glucose 96 mg/dL (65-110); Magnesium 2.5 mg/dL (1.6-2.3); Phosphorus 4.3 mg/dL (2.5-4.5); Potassium 5.5 mmol/L (3.4-5.0); Sodium 135 mmol/L (137-145)
[2024-10-08 13:40] LABS: Troponin I < 0.012 ng/mL (0.000-0.034)
[2024-10-08 13:52] LABS: Creatine Kinase < 20 U/L (55-170)
[2024-10-08] MEDS: PIPERACILLIN/TAZ 2.25G/NS 50ML 2.25 GM/50 ML BAG IVPB ×2 (14:02→20:55)
[2024-10-08 14:24] LABS: NT Pro B Type Natriuretic Pept 13200 pg/mL (19.9-100)
[2024-10-08] MEDS: CALCIUM GLUC 1,000 MG/NS 50 ML 1,000 MG/50 ML BAG 100 MG IVPB (16:19)
[2024-10-08] MEDS: SODIUM BICARBONATE 8.4% 50 MEQ/50 ML SYRINGE IV PUSH (16:26)
[2024-10-08] MEDS: HEPARIN SOD/D5W 100 UNITS/ML 25,000 UNITS/250 ML BAG 12 UNITS IV CONT (18:15)
[2024-10-08] MEDS: HEPARIN SODIUM 5,000 UNITS/ML VIAL 5000 UNITS IV PUSH (18:16)
[2024-10-08 18:49] LABS: Anion Gap 12 mmol/L (4-12); Blood Urea Nitrogen 62 mg/dL (9-20); Calcium 8.5 mg/dL (8.4-10.2); Carbon Dioxide 20 mmol/L (22-30); Chloride 103 mmol/L (98-107); Estimated CRCL calculation 13 ml/min; Estimated Glomerular Filt Rate 17; Glucose 92 mg/dL (65-110); Potassium 5.2 mmol/L (3.4-5.0); Sodium 135 mmol/L (137-145)
[2024-10-09] VITALS (30 sets, daily range): BP systolic 92–114; BP diastolic 43–66; PULSE 74–101; RESP 16–32; TEMP 36.5–37.2; O2SAT 92–100
[2024-10-09 02:07] LABS: Partial Thromboplastin Time > 200.0 Seconds (22.3-36.8)
[2024-10-09] MEDS: PIPERACILLIN/TAZ 2.25G/NS 50ML 2.25 GM/50 ML BAG IVPB ×4 (03:09→20:42)
[2024-10-09] MEDS: dilTIAZem 100 MG/100 ML 100 MG/100 ML BAG IV CONT ×2 (03:10→22:14)
[2024-10-09 05:19] LABS: Basophils Absolute Auto 0.1 K/mm3 (0.0-0.1); Basophils Percent Auto 0.6 % (0.2-1.2); Eosinophils Absolute Auto 0.1 K/mm3 (0-0.3); Eosinophils Percent Auto 0.6 % (0-4.4); Hematocrit 31.6 % (42.0-52.0); Hemoglobin 9.9 g/dL (14.0-18.0); Immature Granulocyte Absolute 0.24 K/mm3 (0.00-0.031); Immature Granulocyte Percent A 2.2 % (0-0.5); Lymphocytes Absolute Auto 0.58 K/mm3 (0.9-3.2); Lymphocytes Percent Auto 5.4 % (18.3-44.2); Mean Corpuscular HGB Conc 31.3 g/dl (32-36); Mean Corpuscular Hemoglobin 30.7 pg (26-34); Mean Corpuscular Volume 97.8 fl (80-100); Mean Platelet Volume 9.9 fl (7.4-10.4); Monocytes Absolute Auto 0.4 K/mm3 (0.1-0.6); Monocytes Percent Auto 4.1 % (2.6-8.5); Neutrophils Absolute Auto 9.3 K/mm3 (1.3-6.7); Neutrophils Percent Auto 87.1 % (45.5-73.1); Platelet Count Result 237 k/mm3 (150-375); Red Blood Count 3.23 M/mm3 (4.6-6.20); Red Cell Distribution Width 14.9 % (11.5-14.5); White Blood Count 10.7 K/mm3 (4.5-10.0)
[2024-10-09 05:29] LABS: Lactic Acid Reflex 1.5 mmol/L (0.7-2.0)
[2024-10-09 05:34] LABS: Alanine Aminotransferase 20 U/L (6-50); Alkaline Phosphatase 68 U/L (38-126); Anion Gap 12 mmol/L (4-12); Aspartate Amino Transferase 132 U/L (17-59); Bilirubin,Total 0.9 mg/dL (0.2-1.3); Blood Urea Nitrogen 63 mg/dL (9-20); Calcium 8.4 mg/dL (8.4-10.2); Carbon Dioxide 22 mmol/L (22-30); Chloride 104 mmol/L (98-107); Estimated CRCL calculation 15 ml/min; Estimated Glomerular Filt Rate 21; Glucose 101 mg/dL (65-110); Magnesium 2.6 mg/dL (1.6-2.3); Phosphorus 5.5 mg/dL (2.5-4.5); Potassium 4.9 mmol/L (3.4-5.0); Sodium 138 mmol/L (137-145)
[2024-10-09 05:54] LABS: Band Neutrophils Percent 0 % (0-6); Burr Cells 1+; Ovalocytes 1+; Platelet Estimate Adequate (Adequate); Schistocytes None Seen
--- NOTE | 2024-10-09 06:51 | WPDUROPN2 ---
Progress Note: A&P Assessment and Plan (1) Liver mass: Code(s): R16.0 - Hepatomegaly, not elsewhere classified Status: Acute (2) Acute kidney injury: Code(s): N17.9 - Acute kidney failure, unspecified Status: Acute (3) Bilateral hydronephrosis: Code(s): N13.30 - Unspecified hydronephrosis Status: Acute (4) Extraperitoneal rupture of bladder: Code(s): N32.89 - Other specified disorders of bladder Status: Acute Assessment and Plan: Overall improvement last 24-hours. Afebrile, BP and pulse improved, u/o good, etc. Creat./hyperkalemia improved and lactic acid normal this morning. Radiologist reluctant to place pelvic drain yesterday -> feels pelvic fluid is loculated (single drain won't effectively eliminate urinoma) and some of fluid may be true ascites related to liver mass. Repeat CT this morning to reassess hydronephrosis. If no improvement, will attempt stent placement sometime today. This can be done without stopping anticoagulation. Subjective Subjective Date/Time Seen: 10/09/24 06:51 Interval history: Comfortable, not reliably answering questions. Daughter and grandson slept overnight - report he was comfortable. Review of Systems Review of Systems: ROS unobtainable: Yes unobtainable due to medical condition Exam Const: General: no acute distress Resp: Effort & Inspection: normal respiratory effort and abnormal respiratory pattern (on bi-pap) GI: Inspection: non-distended GI Palp: No abdominal tenderness and No Guarding due to palpation present (GI) Auscultation: normal bowel sounds Urinary Catheter: Urinary Catheter: patent and draining and urine clear Objective Data Vital Signs Vital Signs: Vital Signs - 24 hr 10/08/24 07:26 10/08/24 07:30 10/08/24 08:02 Temperature Pulse Rate 89 87 84 Respiratory Rate 25 H 22 H 16 Blood Pressure 111/54 L 97/55 L 107/64 Pulse Oximetry 98 97 Oxygen Delivery Oxygen Flow Rate Fraction of Inspired Oxygen 10/08/24 08:45 10/08/24 09:40 10/08/24 09:50 Temperature 98.8 F Pulse Rate 98 98 93 Respiratory Rate 19 34 H 31 H Blood Pressure 105/53 L Pulse Oximetry 100 94 91 Oxygen Delivery BiPAP Oxygen Flow Rate Fraction of Inspired Oxygen 10/08/24 10:00 10/08/24 11:46 10/08/24 12:00 Temperature 99.0 F Pulse Rate 95 129 H Respiratory Rate 36 H Blood Pressure 109/50 L Pulse Oximetry 100 94 Oxygen Delivery BiPAP Oxygen Flow Rate Fraction of Inspired Oxygen 80 10/08/24 12:00 10/08/24 12:45 10/08/24 12:52 Temperature Pulse Rate 111 H Respiratory Rate Blood Pressure Pulse Oximetry 100 95 Oxygen Delivery Oxygen Flow Rate Fraction of Inspired Oxygen 80 50 10/08/24 14:00 10/08/24 14:41 10/08/24 15:29 Temperature Pulse Rate 96 101 H Respiratory Rate 22 H Blood Pressure 108/62 Pulse Oximetry 94 Oxygen Delivery High Flow Therapy with Na Oxygen Flow Rate 25 Fraction of Inspired Oxygen 35 10/08/24 16:00 10/08/24 16:00 10/08/24 16:00 Temperature 99.3 F Pulse Rate 102 H 94 Respiratory Rate 34 H Blood Pressure 91/48 L Pulse Oximetry 93 99 Oxygen Delivery High Flow Therapy with Na Oxygen Flow Rate 25 Fraction of Inspired Oxygen 35 10/08/24 18:00 10/08/24 18:00 10/08/24 19:10 Temperature 98.2 F Pulse Rate 106 H 109 H 92 Respiratory Rate 18 Blood Pressure 93/43 L 102/54 L Pulse Oximetry 96 98 Oxygen Delivery Oxygen Flow Rate Fraction of Inspired Oxygen 10/08/24 20:00 10/08/24 20:00 10/08/24 20:45 Temperature Pulse Rate 107 H 92 102 H Respiratory Rate 18 Blood Pressure 102/54 L Pulse Oximetry 97 Oxygen Delivery High Flow Therapy with Na Oxygen Flow Rate 25 Fraction of Inspired Oxygen 35 10/08/24 21:25 10/08/24 22:00 10/08/24 22:00 Temperature Pulse Rate 103 H 86 87 Respiratory Rate 22 H 18 Blood Pressure 99/56 L Pulse Oximetry 95 97 Oxygen Delivery High Flow Therapy with Na Oxygen Flow Rate 25 Fraction of Inspired Oxygen 35 10/08/24 22:00 10/08/24 22:25 10/08/24 23:27 Temperature Pulse Rate 87 97 97 Respiratory Rate 26 H 26 H Blood Pressure 99/56 L Pulse Oximetry 92 92 Oxygen Delivery BiPAP BiPAP Oxygen Flow Rate Fraction of Inspired Oxygen 10/08/24 23:46 10/09/24 00:00 10/09/24 00:00 Temperature 98.3 F Pulse Rate 98 98 86 Respiratory Rate 26 H Blood Pressure 105/44 L 105/44 L Pulse Oximetry 99 99 Oxygen Delivery BiPAP Oxygen Flow Rate Fraction of Inspired Oxygen 35 10/09/24 00:00 10/09/24 02:00 10/09/24 02:00 Temperature Pulse Rate 82 83 89 Respiratory Rate Blood Pressure 96/45 L Pulse Oximetry Oxygen Delivery Oxygen Flow Rate Fraction of Inspired Oxygen 10/09/24 02:00 10/09/24 02:29 10/09/24 03:10 Temperature 97.8 F Pulse Rate 88 79 79 Respiratory Rate 18 22 H Blood Pressure 96/54 L 96/45 L Pulse Oximetry 98 98 Oxygen Delivery BiPAP Oxygen Flow Rate Fraction of Inspired Oxygen 10/09/24 03:53 10/09/24 04:00 10/09/24 04:00 Temperature 98.3 F Pulse Rate 74 79 80 Respiratory Rate 22 H 18 Blood Pressure 104/48 L Pulse Oximetry 100 100 Oxygen Delivery BiPAP Oxygen Flow Rate Fraction of Inspired Oxygen 35 10/09/24 04:00 10/09/24 04:08 10/09/24 06:00 Temperature 97.7 F Pulse Rate 87 79 84 Respiratory Rate 21 H 18 Blood Pressure 104/48 L 106/58 L Pulse Oximetry 98 95 Oxygen Delivery BiPAP Oxygen Flow Rate Fraction of Inspired Oxygen 10/09/24 06:00 10/09/24 06:00 Temperature Pulse Rate 78 78 Respiratory Rate Blood Pressure 106/58 L Pulse Oximetry Oxygen Delivery Oxygen Flow Rate Fraction of Inspired Oxygen Intake/Output Intake/Output: Intake & Output 10/06/24 10/07/24 10/08/24 10/09/24 23:59 23:59 23:59 23:59 Intake Total 1179.8 178.2 Output Total 350 450 Balance 829.8 -271.8 Meds/Results Medications: Active Medications Generic Name Dose Route Start Last Admin Trade Name Freq PRN Reason Stop Dose Admin Acetaminophen 650 mg 10/08/24 06:42 Acetaminophen 325 Mg Tablet PO Q4H PRN Mild Pain (1-3) or Fever Heparin Sodium (Porcine) 5,000 units 10/08/24 17:36 Heparin Sodium 5,000 Units/Ml Vial IV PUSH PRN PRN aPTT less than 55 seconds Heparin Sodium (Porcine) 2,500 units 10/08/24 17:36 Heparin Sodium 5,000 Units/Ml Vial IV PUSH PRN PRN aPTT 55 - 70 seconds Piperacillin Sod/Tazobactam Sod 2.25 gm in 50 mls @ 100 mls/hr 10/08/24 21:00 10/09/24 03:40 Zosyn 2.25 Gm/Ns 50 Ml IVPB Infused Q6H AN Infusion Heparin Sodium/Dextrose 25,000 units in 250 mls @ 10 mls/hr 10/08/24 17:40 10/09/24 03:10 Heparin Sodium/D5w 100 Units/Ml IV CONT 1,000 units/hr .Q24H AN 10 mls/hr Titration Protocol 1,000 UNITS/HR Diltiazem HCl 100 mg in 100 mls @ 5 mls/hr 10/09/24 02:15 10/09/24 06:00 Cardizem 100 Mg/100 Ml IV CONT 5 mg/hr .Q20H AN 5 mls/hr Infusion 5 MG/HR Radiology Results: ITS Impressions Abdomen/Pelvis CT 10/08/24 06:19 Impression: Findings compatible with extra peritoneal bladder rupture anteriorly, as detailed above. Moderate abdominopelvic ascites again present. Urinary ascites is again not excluded, and the possibility of a ureteral injury cannot be completely excluded based on this exam. CT urogram would be required to better assess for ureteral injury. Severe bilateral hydronephrosis, left worse than right. Large bladder diverticula. Stable large solid hepatic mass, which could reflect large hemangioma versus other more aggressive lesion. Again, follow-up MR imaging recommended to further assess. Moderate right pleural effusion. Venous Doppler Study 10/08/24 15:09 IMPRESSION: Bilateral deep vein thrombosis. Labs Labs: Laboratory Results - last 24 hr 10/08/24 10/08/24 10/08/24 02:26 10:54 10:54 WBC 2.2 L RBC 3.80 L Hgb 11.7 L Hct 36.8 L MCV 96.8 MCH 30.8 MCHC 31.8 L RDW 14.6 H Plt Count 280 MPV 9.7 Immature Gran % (Auto) 0.5 Neut % (Auto) 79.6 H Lymph % (Auto) 11.7 L [place] % (Auto) 7.7 Eos % (Auto) 0.0 Baso % (Auto) 0.5 Lymph # (Auto) 0.26 L [place] # (Auto) 0.2 Eos # (Auto) 0.0 Baso # (Auto) 0.0 Abs Immat Gran (auto) 0.01 Absolute Neuts (auto) 1.8 Absolute Nucleated RBC 0.000 Band Neutrophils % Not Reportable Nucleated RBC % 0.0 Platelet Estimate Adequate Ovalocytes Ryan Cells Crenated Cell 1+ Schistocytes None seen PT 14.3 14.9 H INR 1.1 1.1 APTT 26.1 Puncture Site ABG pH ABG pCO2 ABG pO2 ABG PO2/FiO2 Ratio ABG HCO3 ABG O2 Saturation ABG O2 Content ABG Base Excess A-a Gradient Oxyhemoglobin Total Hemoglobin O2 Delivery Device O2 Liters/Min FiO2 Expiratory Pressure Inspiratory Pressure Sodium 135 L Potassium 5.5 H Chloride 99 Carbon Dioxide 18 L Anion Gap 18 H BUN 68 H Creatinine 4.10 H Estim Creat Clear Calc 10 Estimated GFR 14 L Glucose 96 Lactic Acid 5.7 H* Calcium 8.8 Phosphorus Cancelled 4.3 Magnesium 2.5 H Total Bilirubin 0.9 AST 63 H ALT 22 Alkaline Phosphatase 70 Total Creatine Kinase < 20 L Troponin I < 0.012 NT-Pro-B Natriuret Pep Total Protein Albumin Procalcitonin Nasal MRSA (PCR) 10/08/24 10/08/24 10/08/24 10:54 11:09 12:11 WBC RBC Hgb Hct MCV MCH MCHC RDW Plt Count MPV Immature Gran % (Auto) Neut % (Auto) Lymph % (Auto) [place] % (Auto) Eos % (Auto) Baso % (Auto) Lymph # (Auto) [place] # (Auto) Eos # (Auto) Baso # (Auto) Abs Immat Gran (auto) Absolute Neuts (auto) Absolute Nucleated RBC Band Neutrophils % Nucleated RBC % Platelet Estimate Ovalocytes Ryan Cells Crenated Cell Schistocytes PT INR APTT Puncture Site Left radial ABG pH 7.507 H* ABG pCO2 25.2 L ABG pO2 252.7 H ABG PO2/FiO2 Ratio 3.16 ABG HCO3 19.5 L ABG O2 Saturation 99.7 ABG O2 Content 17.4 ABG Base Excess -2.2 A-a Gradient 291.2 Oxyhemoglobin 98.8 Total Hemoglobin 12.1 O2 Delivery Device Bipap O2 Liters/Min Not Reportable FiO2 80 Expiratory Pressure 6 Inspiratory Pressure 12 Sodium Potassium Chloride Carbon Dioxide Anion Gap BUN Creatinine Estim Creat Clear Calc Estimated GFR Glucose Lactic Acid Calcium Phosphorus Magnesium Total Bilirubin AST ALT Alkaline Phosphatase Total Creatine Kinase Troponin I Cancelled NT-Pro-B Natriuret Pep 82307 H Total Protein 5.0 L Albumin 3.3 L Procalcitonin 31.0 Nasal MRSA (PCR) Not detected 10/08/24 10/08/24 10/09/24 13:10 18:32 01:21 WBC RBC Hgb Hct MCV MCH MCHC RDW Plt Count MPV Immature Gran % (Auto) Neut % (Auto) Lymph % (Auto) [place] % (Auto) Eos % (Auto) Baso % (Auto) Lymph # (Auto) [place] # (Auto) Eos # (Auto) Baso # (Auto) Abs Immat Gran (auto) Absolute Neuts (auto) Absolute Nucleated RBC Band Neutrophils % Nucleated RBC % Platelet Estimate Ovalocytes [place] Cells Crenated Cell Schistocytes PT INR APTT > 200.0 H* Puncture Site ABG pH ABG pCO2 ABG pO2 ABG PO2/FiO2 Ratio ABG HCO3 ABG O2 Saturation ABG O2 Content ABG Base Excess A-a Gradient Oxyhemoglobin Total Hemoglobin O2 Delivery Device O2 Liters/Min FiO2 Expiratory Pressure Inspiratory Pressure Sodium 135 L Potassium 5.2 H Chloride 103 Carbon Dioxide 20 L Anion Gap 12 BUN 62 H Creatinine 3.40 H Estim Creat Clear Calc 13 Estimated GFR 17 L Glucose 92 Lactic Acid 5.0 H* Calcium 8.5 Phosphorus Magnesium Total Bilirubin AST ALT Alkaline Phosphatase Total Creatine Kinase Troponin I NT-Pro-B Natriuret Pep Total Protein Albumin Procalcitonin Nasal MRSA (PCR) 10/09/24 05:07 WBC 10.7 H RBC 3.23 L Hgb 9.9 L Hct 31.6 L MCV 97.8 MCH 30.7 MCHC 31.3 L RDW 14.9 H Plt Count 237 MPV 9.9 Immature Gran % (Auto) 2.2 H Neut % (Auto) 87.1 H Lymph % (Auto) 5.4 L [place] % (Auto) 4.1 Eos % (Auto) 0.6 Baso % (Auto) 0.6 Lymph # (Auto) 0.58 L [place] # (Auto) 0.4 Eos # (Auto) 0.1 Baso # (Auto) 0.1 Abs Immat Gran (auto) 0.24 H Absolute Neuts (auto) 9.3 H Absolute Nucleated RBC 0.000 Band Neutrophils % 0 Nucleated RBC % 0.0 Platelet Estimate Adequate Ovalocytes 1+ Ryan Cells 1+ Crenated Cell Schistocytes None seen PT INR APTT Puncture Site ABG pH ABG pCO2 ABG pO2 ABG PO2/FiO2 Ratio ABG HCO3 ABG O2 Saturation ABG O2 Content ABG Base Excess A-a Gradient Oxyhemoglobin Total Hemoglobin O2 Delivery Device O2 Liters/Min FiO2 Expiratory Pressure Inspiratory Pressure Sodium 138 Potassium 4.9 Chloride 104 Carbon Dioxide 22 Anion Gap 12 BUN 63 H Creatinine 2.87 H Estim Creat Clear Calc 15 Estimated GFR 21 L Glucose 101 Lactic Acid 1.5 Calcium 8.4 Phosphorus 5.5 H Magnesium 2.6 H Total Bilirubin 0.9 AST 132 H ALT 20 Alkaline Phosphatase 68 Total Creatine Kinase Troponin I NT-Pro-B Natriuret Pep Total Protein 6.0 L Albumin 3.0 L Procalcitonin Nasal MRSA (PCR)
--- NOTE | 2024-10-09 10:00 | WPDANESEPPF ---
Anes - Initial Pre Proc Eval Procedure: Operation Date: 10/08/24 14:00 Proposed Procedures p Radiology Procedure Mod.Sed.Rn- Abscess Drain Placement - Ricardo Grant MD Operation Date: 10/09/24 14:45 Proposed Procedures p Cystoscopy, Left Ureteral Stent Placement - Alexys Nice MD Date/Time: 10/09/24 10:00 Surgeon: Manoj Tejeda MD Pre Op Diagnosis: Atrial fibrillation with rapid ventricular respons Patient Data Age: 88 Gender: M Height: 1.75 m Weight: 66 kg Last Vital Signs Temp 36.6 C 10/09/24 08:00 Pulse 92 10/09/24 08:00 Resp 32 H 10/09/24 08:00 BP 92/48 L 10/09/24 08:00 Pulse Ox 95 10/09/24 08:00 O2 Del Method High Flow Therapy with Nasal Cannula 10/09/24 08:00 O2 Flow Rate 25 10/09/24 08:00 FiO2 35 10/09/24 08:00 Allergies Allergy/AdvReac Type Severity Reaction Status Date / Time No Known Allergies Allergy Verified 10/09/24 10:18 Home Medications ?Medication ?Instructions ?Recorded ?Confirmed ?Type lovastatin 20 mg tablet See Rx Instructions .Route 06/10/24 10/08/24 Rx .COMPLEX #90 tabs apixaban 2.5 mg tablet (Eliquis) 2.5 mg PO BID #30 tabs 10/05/24 10/08/24 Rx memantine 5 mg tablet (Namenda) 5 mg PO BID #30 tabs 10/05/24 10/08/24 Rx metoprolol succinate 25 mg 12.5 mg (1/2 x 25 mg) PO DAILY #30 10/05/24 10/08/24 Rx tablet,extended release 24 hr tabs cephalexin 500 mg capsule 500 mg PO Q12H UTI 10/08/24 10/08/24 History warfarin 6 mg tablet 6 mg PO DAILY 10/08/24 10/08/24 History Laboratory Tests 10/08/24 10/08/24 10/08/24 10:54 10:54 10:54 WBC 2.2 L K/mm3 (4.5-10.0) RBC 3.80 L M/mm3 (4.6-6.20) Hgb 11.7 L g/dL (14.0-18.0) Hct 36.8 L % (42.0-52.0) MCV 96.8 fl (80-100) MCH 30.8 pg (26-34) MCHC 31.8 L g/dl (32-36) RDW 14.6 H % (11.5-14.5) Plt Count 280 k/mm3 (150-375) MPV 9.7 fl (7.4-10.4) Immature Gran % (Auto) 0.5 % (0-0.5) Neut % (Auto) 79.6 H % (45.5-73.1) Lymph % (Auto) 11.7 L % (18.3-44.2) [place] % (Auto) 7.7 % (2.6-8.5) Eos % (Auto) 0.0 % (0-4.4) Baso % (Auto) 0.5 % (0.2-1.2) Lymph # (Auto) 0.26 L K/mm3 (0.9-3.2) [place] # (Auto) 0.2 K/mm3 (0.1-0.6) Eos # (Auto) 0.0 K/mm3 (0-0.3) Baso # (Auto) 0.0 K/mm3 (0.0-0.1) Abs Immat Gran (auto) 0.01 K/mm3 (0.00-0.031) Absolute Neuts (auto) 1.8 K/mm3 (1.3-6.7) Absolute Nucleated RBC 0.000 K/mm3 (0.0-0.012) Band Neutrophils % Not Reportable Nucleated RBC % 0.0 % (0.0-0.2) Platelet Estimate Adequate (Adequate) Ovalocytes [place] Cells Crenated Cell 1+ Schistocytes None seen PT 14.9 H Seconds (11.1-14.7) INR 1.1 APTT 26.1 Seconds (22.3-36.8) Puncture Site ABG pH ABG pCO2 ABG pO2 ABG PO2/FiO2 Ratio ABG HCO3 ABG O2 Saturation ABG O2 Content ABG Base Excess A-a Gradient Oxyhemoglobin Total Hemoglobin O2 Delivery Device O2 Liters/Min FiO2 Expiratory Pressure Inspiratory Pressure Sodium 135 L mmol/L (137-145) Potassium 5.5 H mmol/L (3.4-5.0) Chloride 99 mmol/L (98-107) Carbon Dioxide 18 L mmol/L (22-30) Anion Gap 18 H mmol/L (4-12) BUN 68 H mg/dL (9-20) Creatinine 4.10 H mg/dL (0.7-1.3) Estim Creat Clear Calc 10 ml/min Estimated GFR 14 L (59 - ) Glucose 96 mg/dL (65-110) Lactic Acid 5.7 H* mmol/L (0.7-2.0) Calcium 8.8 mg/dL (8.4-10.2) Phosphorus Cancelled 4.3 mg/dL (2.5-4.5) Magnesium 2.5 H mg/dL (1.6-2.3) Total Bilirubin 0.9 mg/dL (0.2-1.3) AST 63 H U/L (17-59) ALT 22 U/L (6-50) Alkaline Phosphatase 70 U/L (38-126) Total Creatine Kinase < 20 L U/L (55-170) Troponin I < 0.012 ng/mL Cancelled (0.000-0.034) NT-Pro-B Natriuret Pep 95345 H pg/mL (19.9-100) Total Protein 5.0 L g/dL (6.3-8.2) Albumin 3.3 L g/dL (3.5-5.1) Procalcitonin 31.0 ng/mL Nasal MRSA (PCR) 10/08/24 10/08/24 10/08/24 11:09 12:11 13:10 WBC RBC Hgb Hct MCV MCH MCHC RDW Plt Count MPV Immature Gran % (Auto) Neut % (Auto) Lymph % (Auto) [place] % (Auto) Eos % (Auto) Baso % (Auto) Lymph # (Auto) [place] # (Auto) Eos # (Auto) Baso # (Auto) Abs Immat Gran (auto) Absolute Neuts (auto) Absolute Nucleated RBC Band Neutrophils % Nucleated RBC % Platelet Estimate Ovalocytes [place] Cells Crenated Cell Schistocytes PT INR APTT Puncture Site Left radial ABG pH 7.507 H* (7.350-7.450) ABG pCO2 25.2 L mmHg (35.0-45.0) ABG pO2 252.7 H mmHg (80.0-100.0) ABG PO2/FiO2 Ratio 3.16 % ABG HCO3 19.5 L mEq/l (22.0-26.0) ABG O2 Saturation 99.7 % (95.0-100.0) ABG O2 Content 17.4 %vol (16.0-22.0) ABG Base Excess -2.2 mEq/l (+/-2.0) A-a Gradient 291.2 mmHg Oxyhemoglobin 98.8 % THb (90.0-100.0) Total Hemoglobin 12.1 g/dL (12.0-18.0) O2 Delivery Device Bipap O2 Liters/Min Not Reportable FiO2 80 % Expiratory Pressure 6 cmH2O Inspiratory Pressure 12 cmH2O Sodium Potassium Chloride Carbon Dioxide Anion Gap BUN Creatinine Estim Creat Clear Calc Estimated GFR Glucose Lactic Acid 5.0 H* mmol/L (0.7-2.0) Calcium Phosphorus Magnesium Total Bilirubin AST ALT Alkaline Phosphatase Total Creatine Kinase Troponin I NT-Pro-B Natriuret Pep Total Protein Albumin Procalcitonin Nasal MRSA (PCR) Not detected (NOT DETECTE) 10/08/24 10/09/24 10/09/24 18:32 01:21 05:07 WBC 10.7 H K/mm3 (4.5-10.0) RBC 3.23 L M/mm3 (4.6-6.20) Hgb 9.9 L g/dL (14.0-18.0) Hct 31.6 L % (42.0-52.0) MCV 97.8 fl (80-100) MCH 30.7 pg (26-34) MCHC 31.3 L g/dl (32-36) RDW 14.9 H % (11.5-14.5) Plt Count 237 k/mm3 (150-375) MPV 9.9 fl (7.4-10.4) Immature Gran % (Auto) 2.2 H % (0-0.5) Neut % (Auto) 87.1 H % (45.5-73.1) Lymph % (Auto) 5.4 L % (18.3-44.2) [place] % (Auto) 4.1 % (2.6-8.5) Eos % (Auto) 0.6 % (0-4.4) Baso % (Auto) 0.6 % (0.2-1.2) Lymph # (Auto) 0.58 L K/mm3 (0.9-3.2) [place] # (Auto) 0.4 K/mm3 (0.1-0.6) Eos # (Auto) 0.1 K/mm3 (0-0.3) Baso # (Auto) 0.1 K/mm3 (0.0-0.1) Abs Immat Gran (auto) 0.24 H K/mm3 (0.00-0.031) Absolute Neuts (auto) 9.3 H K/mm3 (1.3-6.7) Absolute Nucleated RBC 0.000 K/mm3 (0.0-0.012) Band Neutrophils % 0 % (0-6) Nucleated RBC % 0.0 % (0.0-0.2) Platelet Estimate Adequate (Adequate) Ovalocytes 1+ Ryan Cells 1+ Crenated Cell Schistocytes None seen PT INR APTT > 200.0 H* Seconds (22.3-36.8) Puncture Site ABG pH ABG pCO2 ABG pO2 ABG PO2/FiO2 Ratio ABG HCO3 ABG O2 Saturation ABG O2 Content ABG Base Excess A-a Gradient Oxyhemoglobin Total Hemoglobin O2 Delivery Device O2 Liters/Min FiO2 Expiratory Pressure Inspiratory Pressure Sodium 135 L mmol/L 138 mmol/L (137-145) (137-145) Potassium 5.2 H mmol/L 4.9 mmol/L (3.4-5.0) (3.4-5.0) Chloride 103 mmol/L 104 mmol/L (98-107) (98-107) Carbon Dioxide 20 L mmol/L 22 mmol/L (22-30) (22-30) Anion Gap 12 mmol/L 12 mmol/L (4-12) (4-12) BUN 62 H mg/dL 63 H mg/dL (9-20) (9-20) Creatinine 3.40 H mg/dL 2.87 H mg/dL (0.7-1.3) (0.7-1.3) Estim Creat Clear Calc 13 ml/min 15 ml/min Estimated GFR 17 L 21 L (59 - ) (59 - ) Glucose 92 mg/dL 101 mg/dL (65-110) (65-110) Lactic Acid 1.5 mmol/L (0.7-2.0) Calcium 8.5 mg/dL 8.4 mg/dL (8.4-10.2) (8.4-10.2) Phosphorus 5.5 H mg/dL (2.5-4.5) Magnesium 2.6 H mg/dL (1.6-2.3) Total Bilirubin 0.9 mg/dL (0.2-1.3) AST 132 H U/L (17-59) ALT 20 U/L (6-50) Alkaline Phosphatase 68 U/L (38-126) Total Creatine Kinase Troponin I NT-Pro-B Natriuret Pep Total Protein 6.0 L g/dL (6.3-8.2) Albumin 3.0 L g/dL (3.5-5.1) Procalcitonin Nasal MRSA (PCR) 10/09/24 09:11 WBC RBC Hgb Hct MCV MCH MCHC RDW Plt Count MPV Immature Gran % (Auto) Neut % (Auto) Lymph % (Auto) [place] % (Auto) Eos % (Auto) Baso % (Auto) Lymph # (Auto) [place] # (Auto) Eos # (Auto) Baso # (Auto) Abs Immat Gran (auto) Absolute Neuts (auto) Absolute Nucleated RBC Band Neutrophils % Nucleated RBC % Platelet Estimate Ovalocytes [place] Cells Crenated Cell Schistocytes PT INR APTT Pending Puncture Site ABG pH ABG pCO2 ABG pO2 ABG PO2/FiO2 Ratio ABG HCO3 ABG O2 Saturation ABG O2 Content ABG Base Excess A-a Gradient Oxyhemoglobin Total Hemoglobin O2 Delivery Device O2 Liters/Min FiO2 Expiratory Pressure Inspiratory Pressure Sodium Potassium Chloride Carbon Dioxide Anion Gap BUN Creatinine Estim Creat Clear Calc Estimated GFR Glucose Lactic Acid Calcium Phosphorus Magnesium Total Bilirubin AST ALT Alkaline Phosphatase Total Creatine Kinase Troponin I NT-Pro-B Natriuret Pep Total Protein Albumin Procalcitonin Nasal MRSA (PCR) Patient hx anesthesia problems: none Family hx anesthesia problems: none Results Review: All pre-operative results and documents have been reviewed as part of the pre-operative evaluation. [facility] Past Medical History Medical History Esophageal stricture Basal cell carcinoma removed 07/2023, right shoulder Hyperlipidemia Paroxysmal atrial fibrillation Stage III chronic kidney disease Surgical History Surgical History H/O rectal polypectomy H/O colonoscopy History of removal of skin mole Family History Family History Father Family history of malignant neoplasm of bone Patient's father is Mother Family history of dementia Patient's mother is , Onset Age: 91 Other Family history of arthritis Social History Social History Social History: Lives at home with his dtr. Lifelong nonsmoker. Denies alcohol or drug use. They have a dog at home Code status -full Surrogate decision maker -daughter Smoking status: Never smoker Second hand tobacco smoke exposure: Yes Alcohol intake: current Drinks per week: 4 Alcohol use details: beer Substance use: never Substance use type: does not use Last use: 05/2025 Do You Feel Safe in your Home?: Yes Lack of Transportation: No Lack of Food: Never True Current Housing: Decline to Answer Concerned About Future Housing: Decline to Answer Difficulty Paying Gas/Electric Bills: Decline to Answer Difficulty Paying for Meds: Decline to Answer Currently Unemployed: Decline to Answer Education: High School Diploma/GED Difficulty w/ Childcare or Family Care: Decline to Answer Living arrangements: alone Occupation/Education: retired Gender identity (if verbalized by the patient): Male Spiritual care concerns: No Agree to blood products: Yes Anes - Eval Final PreProcedure Day of Procedure 10/09/24 10:00 Patient weight: cachectic Heart: irregular rhythm Lungs: decreased breath sounds Airway: Mallampati scale class II Neurological: lethargic Last oral intake: >/= 8 hours ASA classification: IV Emergent: no Anesthetic plan: proceed Anesthesia type and monitoring: general LMA and standard monitoring Results Review: All pre-operative results and documents have been reviewed as part of the pre-operative evaluation. Informed Consent: The patient's anesthetic plan and its attendant risks and benefits were discussed with the patient/family/POA. Questions were solicited and answers provided to the satisfaction of the patient/family/POA.
[2024-10-09 10:07] LABS: Partial Thromboplastin Time 77.5 Seconds (22.3-36.8)
[2024-10-09 10:14] LABS: Glucose Point of Care 102 mg/dl (65-105)
[2024-10-09] MEDS: SODIUM CHLORIDE 0.9% IV 500 ML 30 ML IV CONT (11:20)
--- NOTE | 2024-10-09 11:35 | WPDHPUPDATE1 ---
History and Physical Update Update Date/Time: 10/09/24 11:35 History and Physical has been reviewed, including an updated exam of the patient. There are NO changes in the patient's condition. Risks, benefits, and alternatives have been discussed and questions answered. Patient agrees to proceed with procedure.
--- NOTE | 2024-10-09 13:47 | P.PNIM_ITS ---
Progress Note: A&P Assessment and Plan (1) Acute hypoxemic respiratory failure: Code(s): J96.01 - Acute respiratory failure with hypoxia Status: Acute Assessment and Plan: Patient was on room air on admission but quickly developed hypoxia requiring nonrebreather then bipap. CXR showing minimal right pleural effusion with mild bibasilar chronic interstitial change or interstitial edema. CT Abd showing a 5 mm right middle lobe nodule and moderate right pleural effusion. Consider aspiration. Consider PE since he has been off his Warfarin and not yet started on Eliquis. Consider PNA vs CHF. On abx for possible PNA but felt less likely. Consider PE since he has DVT. He was weaned off BiPAP and switched to HFNC. CT Abd now showing moderate right and small left pleural effusion ans atelectasis. Wean off O2 as tolerated. (2) Sepsis: Code(s): A41.9 - Sepsis, unspecified organism Status: Acute Assessment and Plan: Patient has developed symptoms of severe sepsis with tachycardia, hypoxia, PIO, and HoTN. Clinically patient with poor perfusion BP soft but better now. [place] related to peritonitis from bladder perforation, urine in abd cavity and Enterococcus UTI. BCx NGTD. UCx growing Enterococcus Lactic down to 1.5. PCT was 31. MRSA screen negative. Continue Zosyn. (3) Extraperitoneal rupture of bladder: Code(s): N32.89 - Other specified disorders of bladder Status: Acute Assessment and Plan: CT abd/pelvis concerning for bladder perforation. CR cystogram showing Ayala catheter balloon appears to extend beyond the anterior margin of the bladder wall. Contrast extravasates from the anterior bladder, more apparent on prone images, compatible with extraperitoneal bladder rupture. There are large bilateral bladder diverticula, which are prominently distended with urine, and filled with administered contrast. Moderate abdominopelvic ascites, possible urinary ascites again present. Severe bilateral hydronephrosis noted. Ayala was placed and urology consulted. Repeat CT scan showing right hydronephrosis better but persistent left hydronephrosis. Small amount of of abdominopelvic ascites. Unable to place left ureteral stent so plan for left nephrostomy tube. Heparin stopped for the procedure per radiology recs. Monitor UOP and renal function. Appreciate urology input (4) Hyperkalemia: Code(s): E87.5 - Hyperkalemia Status: Acute Assessment and Plan: Potassium 6.5 on admission felt related to PIO and possibly re-absorption from urine in the pelvis. EKG showing no peaked T waves. Hyperkalemia treated appropriately Follow up labs showing normal potassium now. Follow. (5) Acute kidney injury: Code(s): N17.9 - Acute kidney failure, unspecified Status: Acute Assessment and Plan: Patient with PIO with Cr 4.7 and BUN 71. He has had normal baseline Cr last year but 1.3-1.6 earlier this year. May have been developing this urine retention over time resulting in the increasing Cr. Elevated Cr related to urine in the pelvis as well. Cr continues to trend down. Holding on IV fluids since appears fluid overloaded. Monitor UOP, renal function and electrolytes (6) UTI (urinary tract infection): Code(s): N39.0 - Urinary tract infection, site not specified Status: Acute Assessment and Plan: UA on 09/29/24 did not reflex to culture but UA repeated on 10/06 with UCx growing 100K colonies of maurice-sensitive enterococcus. BCx NGTD Repeat UCx also growing Enterococcus. Contineu Zosyn (7) Peritonitis: Code(s): K65.9 - Peritonitis, unspecified Status: Acute Assessment and Plan: As above (8) Bilateral hydronephrosis: Code(s): N13.30 - Unspecified hydronephrosis Status: Acute Assessment and Plan: As above (9) Liver mass: Code(s): R16.0 - Hepatomegaly, not elsewhere classified Status: Acute Assessment and Plan: CT scan also showing an extremely large lobulated mildly heterogeneous mass probably arising from the inferior right hepatic lobe and extending inferiorly, measuring 16.7 x 11.0 x 14.5 cm in size. LFTs are okay. He does have a hx of basal cell. Will plan for further evaluation this admission or as outpatient (10) Paroxysmal atrial fibrillation: Code(s): I48.0 - Paroxysmal atrial fibrillation Status: Acute Assessment and Plan: Patient developed AFib/RVR in the ED. Probably chronic AFib (EKG on 09/29/24 and in 2019 show AFib) He was given metoprolol 5mg IV once then Diltiazem 10mg IV once before starting Diltiazem 5mg/hr drip. This may have resulted in soft BP. Rate better controlled. Monitor on tele. He was being transitioned from Warfarin to Eliquis but has not started Eliquis yet. INR 1.1 Wean to metoprolol when able. (11) DVT (deep venous thrombosis): Code(s): I82.409 - Acute embolism and thrombosis of unspecified deep veins of unspecified lower extremity Status: Acute Assessment and Plan: LE venous dopplers showing: RLE with peroneal and posterior tibial DVT. LLE with popliteal, posterior tibial and peroneal DVT. Consider hypoxia related to PE. Started heparin drip since benefit outweighs risk. Heparin on hold for nephrostomy tube placement. Bedrest. Resume Heparin as soon as possible after the procedure. (12) Stage III chronic kidney disease: Code(s): N18.3 - Chronic kidney disease, stage 3 (moderate) Status: Acute Assessment and Plan: As above (13) Memory deficit: Code(s): R41.3 - Other amnesia Status: Acute Assessment and Plan: Patient has a hx of memory issues and was started on Nam[place] recently Hold for now but resume when more stable Plan DVT Prophylaxis - Heparin Code status - full Subjective Date/time seen: 10/09/24 13:47 Interval history: 88yo male with HLD, stage III CKD, AFib on anticoagulation, and hx of skin cancer with resection around right lateral neck who presents to the ED with daughter with complaints of lower abdominal pain. Feels tired. Slept some last night. No abd pain. no CP. Exam Narrative: AF 97.8 104/51 77 19 97% 10L Gen - ill appearing thin male in NARD Chest - decreased BS in the flanks and clear anteriorly. CV - irregularly irregular and tachycardic. Distant S1-S2. Tele showing AFib with mostly controlled rate. Abd - soft with voluntary guarding in the lower quadrants. - Ayala secured draining red colored urine. Ext - 1+ pitting pedal edema. Neuro - awake, fatigued. Psych - normal mood and affect Skin - bilateral UE bruising noted with healing skin tears Objective Data Vital Signs Vital Signs: Vital Signs - 24 hr 10/08/24 14:00 10/08/24 14:41 10/08/24 15:29 Temperature Pulse Rate 96 101 H Respiratory Rate 22 H Blood Pressure 108/62 Pulse Oximetry 94 Oxygen Delivery High Flow Therapy with Na Oxygen Flow Rate 25 Fraction of Inspired Oxygen 35 10/08/24 16:00 10/08/24 16:00 10/08/24 16:00 Temperature 99.3 F Pulse Rate 102 H 94 Respiratory Rate 34 H Blood Pressure 91/48 L Pulse Oximetry 93 99 Oxygen Delivery High Flow Therapy with Na Oxygen Flow Rate 25 Fraction of Inspired Oxygen 35 10/08/24 18:00 10/08/24 18:00 10/08/24 19:10 Temperature 98.2 F Pulse Rate 106 H 109 H 92 Respiratory Rate 18 Blood Pressure 93/43 L 102/54 L Pulse Oximetry 96 98 Oxygen Delivery Oxygen Flow Rate Fraction of Inspired Oxygen 10/08/24 20:00 10/08/24 20:00 10/08/24 20:45 Temperature Pulse Rate 107 H 92 102 H Respiratory Rate 18 Blood Pressure 102/54 L Pulse Oximetry 97 Oxygen Delivery High Flow Therapy with Na Oxygen Flow Rate 25 Fraction of Inspired Oxygen 35 10/08/24 21:25 10/08/24 22:00 10/08/24 22:00 Temperature Pulse Rate 103 H 86 87 Respiratory Rate 22 H 18 Blood Pressure 99/56 L Pulse Oximetry 95 97 Oxygen Delivery High Flow Therapy with Na Oxygen Flow Rate 25 Fraction of Inspired Oxygen 35 10/08/24 22:00 10/08/24 22:25 10/08/24 23:27 Temperature Pulse Rate 87 97 97 Respiratory Rate 26 H 26 H Blood Pressure 99/56 L Pulse Oximetry 92 92 Oxygen Delivery BiPAP BiPAP Oxygen Flow Rate Fraction of Inspired Oxygen 10/08/24 23:46 10/09/24 00:00 10/09/24 00:00 Temperature 98.3 F Pulse Rate 98 98 86 Respiratory Rate 26 H Blood Pressure 105/44 L 105/44 L Pulse Oximetry 99 99 Oxygen Delivery BiPAP Oxygen Flow Rate Fraction of Inspired Oxygen 35 10/09/24 00:00 10/09/24 02:00 10/09/24 02:00 Temperature Pulse Rate 82 83 89 Respiratory Rate Blood Pressure 96/45 L Pulse Oximetry Oxygen Delivery Oxygen Flow Rate Fraction of Inspired Oxygen 10/09/24 02:00 10/09/24 02:29 10/09/24 03:10 Temperature 97.8 F Pulse Rate 88 79 79 Respiratory Rate 18 22 H Blood Pressure 96/54 L 96/45 L Pulse Oximetry 98 98 Oxygen Delivery BiPAP Oxygen Flow Rate Fraction of Inspired Oxygen 10/09/24 03:53 10/09/24 04:00 10/09/24 04:00 Temperature 98.3 F Pulse Rate 74 79 80 Respiratory Rate 22 H 18 Blood Pressure 104/48 L Pulse Oximetry 100 100 Oxygen Delivery BiPAP Oxygen Flow Rate Fraction of Inspired Oxygen 35 10/09/24 04:00 10/09/24 04:08 10/09/24 06:00 Temperature 97.7 F Pulse Rate 87 79 84 Respiratory Rate 21 H 18 Blood Pressure 104/48 L 106/58 L Pulse Oximetry 98 95 Oxygen Delivery BiPAP Oxygen Flow Rate Fraction of Inspired Oxygen 10/09/24 06:00 10/09/24 06:00 10/09/24 08:00 Temperature Pulse Rate 78 78 84 Respiratory Rate 22 H Blood Pressure 106/58 L Pulse Oximetry 95 Oxygen Delivery High Flow Therapy with Na Oxygen Flow Rate 25 Fraction of Inspired Oxygen 35 10/09/24 08:00 10/09/24 08:00 10/09/24 08:00 Temperature 97.8 F Pulse Rate 92 92 Respiratory Rate 32 H Blood Pressure 92/48 L 92/48 L Pulse Oximetry 95 95 Oxygen Delivery High Flow Nasal Cannula Oxygen Flow Rate 25 Fraction of Inspired Oxygen 35 10/09/24 08:00 10/09/24 10:00 10/09/24 10:24 Temperature 99 F Pulse Rate 89 86 86 Respiratory Rate Blood Pressure 107/52 L 107/52 L Pulse Oximetry 95 Oxygen Delivery High Flow Nasal Cannula Oxygen Flow Rate 25 Fraction of Inspired Oxygen 35 10/09/24 11:20 10/09/24 11:35 10/09/24 11:50 Temperature 97.8 F Pulse Rate 101 H 84 77 Respiratory Rate 16 16 18 Blood Pressure 106/59 L 108/63 114/66 Pulse Oximetry 96 96 95 Oxygen Delivery Simple Face Mask Simple Face Mask Simple Face Mask Oxygen Flow Rate 10 10 10 Fraction of Inspired Oxygen 10/09/24 12:00 10/09/24 12:00 10/09/24 12:05 Temperature Pulse Rate 82 82 Respiratory Rate 19 Blood Pressure 111/54 L 111/54 L Pulse Oximetry 97 96 Oxygen Delivery High Flow Nasal Cannula Simple Face Mask Oxygen Flow Rate 25 10 Fraction of Inspired Oxygen 35 10/09/24 12:20 Temperature Pulse Rate 77 Respiratory Rate 19 Blood Pressure 104/51 L Pulse Oximetry 97 Oxygen Delivery Simple Face Mask Oxygen Flow Rate 10 Fraction of Inspired Oxygen Intake/Output Intake/Output: Intake & Output 10/06/24 10/07/24 10/08/24 10/09/24 23:59 23:59 23:59 23:59 Intake Total 1179.8 476.5 Output Total 350 1000 Balance 829.8 -523.5 Meds/Results Medications: Active Medications Generic Name Dose Route Start Last Admin Trade Name Freq PRN Reason Stop Dose Admin Acetaminophen 650 mg 10/08/24 06:42 Acetaminophen 325 Mg Tablet PO Q4H PRN Mild Pain (1-3) or Fever Fentanyl Citrate 25 mcg 10/09/24 10:01 Fentanyl Citrate Inj (*Crx) 100 Mcg/2 Ml Vial IV PUSH Q2M PRN Pain Piperacillin Sod/Tazobactam Sod 2.25 gm in 50 mls @ 100 mls/hr 10/08/24 21:00 10/09/24 10:21 Zosyn 2.25 Gm/Ns 50 Ml IVPB Infused Q6H AN Infusion Diltiazem HCl 100 mg in 100 mls @ 5 mls/hr 10/09/24 02:15 10/09/24 12:00 Cardizem 100 Mg/100 Ml IV CONT 5 mg/hr .Q20H AN 5 mls/hr Infusion 5 MG/HR Sodium Chloride 500 mls @ 30 mls/hr 10/09/24 10:05 10/09/24 12:39 Normal Saline Iv IV CONT Infused .[id number] AN Infusion Sodium Chloride 500 mls @ 30 mls/hr 10/09/24 10:05 Normal Saline Iv IV CONT .[id number] NA Ondansetron HCl 4 mg 10/09/24 10:01 Ondansetron Inj 4 Mg/2 Ml Vial IV PUSH ONCE PRN Nausea Radiology Results: ITS Impressions Venous Doppler Study 10/08/24 15:09 IMPRESSION: Bilateral deep vein thrombosis. Abdomen/Pelvis CT 10/09/24 07:02 Impression: Persistent severe left hydroureteronephrosis. Impingement/obstruction or injury to the distal left ureter remains a consideration. Right hydronephrosis is nearly completely resolved. Ayala catheter now within the urinary bladder which shows diffuse wall thickening, which could reflect cystitis/inflammatory change. Large bladder diverticula, with persistent contrast distending the left bladder diverticulum. Possible tiny amount of residual extraluminal contrast extraperitoneally anterior to the urinary bladder.. Small amount of abdominopelvic ascites. Moderate right pleural effusion and small left pleural effusion with right lower lobe atelectasis. Stable large hepatic mass, indeterminate, as detailed on recent prior CT scans. Chest X-Ray 10/09/24 07:09 Impression: Small right pleural effusion with right lower lobe atelectasis versus pneumonia. Correlate clinically. Fluoroscopy 10/09/24 12:46 IMPRESSION: 1. Fluoroscopy utilized during attempted cystogram. See procedure note for further detail. Labs Labs: Laboratory Results - last 24 hr 10/08/24 10/08/24 10/08/24 10:54 13:10 18:32 WBC RBC Hgb Hct MCV MCH MCHC RDW Plt Count MPV Immature Gran % (Auto) Neut % (Auto) Lymph % (Auto) [place] % (Auto) Eos % (Auto) Baso % (Auto) Lymph # (Auto) [place] # (Auto) Eos # (Auto) Baso # (Auto) Abs Immat Gran (auto) Absolute Neuts (auto) Absolute Nucleated RBC Band Neutrophils % Nucleated RBC % Platelet Estimate Ovalocytes [place] Cells Schistocytes APTT Sodium 135 L Potassium 5.2 H Chloride 103 Carbon Dioxide 20 L Anion Gap 12 BUN 62 H Creatinine 3.40 H Estim Creat Clear Calc 13 Estimated GFR 17 L Glucose 92 POC Capillary Glucose Lactic Acid 5.0 H* Calcium 8.5 Phosphorus Magnesium Total Bilirubin AST ALT Alkaline Phosphatase Total Creatine Kinase < 20 L NT-Pro-B Natriuret Pep 84708 H Total Protein Albumin 10/09/24 10/09/24 10/09/24 01:21 05:07 09:44 WBC 10.7 H RBC 3.23 L Hgb 9.9 L Hct 31.6 L MCV 97.8 MCH 30.7 MCHC 31.3 L RDW 14.9 H Plt Count 237 MPV 9.9 Immature Gran % (Auto) 2.2 H Neut % (Auto) 87.1 H Lymph % (Auto) 5.4 L [place] % (Auto) 4.1 Eos % (Auto) 0.6 Baso % (Auto) 0.6 Lymph # (Auto) 0.58 L [place] # (Auto) 0.4 Eos # (Auto) 0.1 Baso # (Auto) 0.1 Abs Immat Gran (auto) 0.24 H Absolute Neuts (auto) 9.3 H Absolute Nucleated RBC 0.000 Band Neutrophils % 0 Nucleated RBC % 0.0 Platelet Estimate Adequate Ovalocytes 1+ [place] Cells 1+ Schistocytes None seen APTT > 200.0 H* 77.5 H Sodium 138 Potassium 4.9 Chloride 104 Carbon Dioxide 22 Anion Gap 12 BUN 63 H Creatinine 2.87 H Estim Creat Clear Calc 15 Estimated GFR 21 L Glucose 101 POC Capillary Glucose Lactic Acid 1.5 Calcium 8.4 Phosphorus 5.5 H Magnesium 2.6 H Total Bilirubin 0.9 AST 132 H ALT 20 Alkaline Phosphatase 68 Total Creatine Kinase NT-Pro-B Natriuret Pep Total Protein 6.0 L Albumin 3.0 L 10/09/24 10:07 WBC RBC Hgb Hct MCV MCH MCHC RDW Plt Count MPV Immature Gran % (Auto) Neut % (Auto) Lymph % (Auto) [place] % (Auto) Eos % (Auto) Baso % (Auto) Lymph # (Auto) [place] # (Auto) Eos # (Auto) Baso # (Auto) Abs Immat Gran (auto) Absolute Neuts (auto) Absolute Nucleated RBC Band Neutrophils % Nucleated RBC % Platelet Estimate Ovalocytes [place] Cells Schistocytes APTT Sodium Potassium Chloride Carbon Dioxide Anion Gap BUN Creatinine Estim Creat Clear Calc Estimated GFR Glucose POC Capillary Glucose 102 Lactic Acid Calcium Phosphorus Magnesium Total Bilirubin AST ALT Alkaline Phosphatase Total Creatine Kinase NT-Pro-B Natriuret Pep Total Protein Albumin
--- NOTE | 2024-10-09 14:49 | PCSTNOTE ---
Please refer to the Bedside Swallow Evaluation in the EMR. Please note, silent aspiration cannot be ruled out at bedside.
--- NOTE | 2024-10-09 15:23 | WPDHPUPDATE1 ---
History and Physical Update Update Date/Time: 10/09/24 15:23 History and Physical has been reviewed, including an updated exam of the patient. There are NO changes in the patient's condition. Risks, benefits, and alternatives have been discussed and questions answered. Patient agrees to proceed with procedure.
[2024-10-09] MEDS: SODIUM CHLORIDE 0.9% IV 1,000 ML 50 ML IV CONT (19:16)
[2024-10-10] VITALS (28 sets, daily range): BP systolic 100–125; BP diastolic 42–63; PULSE 63–89; RESP 16–22; TEMP 36.1–37.1; O2SAT 91–100
[2024-10-10] MEDS: PIPERACILLIN/TAZ 2.25G/NS 50ML 2.25 GM/50 ML BAG IVPB ×4 (03:10→20:07)
[2024-10-10 05:01] LABS: Basophils Percent Auto 0.3 % (0.2-1.2); Eosinophils Percent Auto 0.3 % (0-4.4); Hematocrit 29.7 % (42.0-52.0); Hemoglobin 9.2 g/dL (14.0-18.0); Immature Granulocyte Absolute 0.11 K/mm3 (0.00-0.031); Lymphocytes Absolute Auto 0.55 K/mm3 (0.9-3.2); Lymphocytes Percent Auto 4.8 % (18.3-44.2); Mean Corpuscular Hemoglobin 30.5 pg (26-34); Mean Corpuscular Volume 98.3 fl (80-100); Mean Platelet Volume 9.8 fl (7.4-10.4); Monocytes Absolute Auto 0.2 K/mm3 (0.1-0.6); Neutrophils Absolute Auto 10.5 K/mm3 (1.3-6.7); Neutrophils Percent Auto 91.6 % (45.5-73.1); Platelet Count Result 221 k/mm3 (150-375); Red Blood Count 3.02 M/mm3 (4.6-6.20); Red Cell Distribution Width 14.9 % (11.5-14.5); White Blood Count 11.5 K/mm3 (4.5-10.0)
[2024-10-10 05:12] LABS: INR 1.1
[2024-10-10 05:13] LABS: Partial Thromboplastin Time 34.4 Seconds (22.3-36.8)
[2024-10-10 05:16] LABS: Alanine Aminotransferase 19 U/L (6-50); Albumin Level 2.8 g/dL (3.5-5.1); Alkaline Phosphatase 82 U/L (38-126); Anion Gap 15 mmol/L (4-12); Aspartate Amino Transferase 99 U/L (17-59); Bilirubin,Total 0.7 mg/dL (0.2-1.3); Blood Urea Nitrogen 57 mg/dL (9-20); Calcium 7.9 mg/dL (8.4-10.2); Carbon Dioxide 19 mmol/L (22-30); Chloride 108 mmol/L (98-107); Estimated CRCL calculation 20 ml/min; Estimated Glomerular Filt Rate 29; Glucose 86 mg/dL (65-110); Magnesium 2.9 mg/dL (1.6-2.3); Phosphorus 4.4 mg/dL (2.5-4.5); Potassium 3.6 mmol/L (3.4-5.0); Sodium 142 mmol/L (137-145)
[2024-10-10 05:21] LABS: Anisocytosis 1+; Band Neutrophils Percent 0 % (0-6); Burr Cells 1+; Ovalocytes 1+; Platelet Estimate Adequate (Adequate); Schistocytes None Seen
--- NOTE | 2024-10-10 10:25 | PCSTNOTE ---
Attempted to schedule MBS. Spoke with nurse and x-ray, patient has another procedure this date and will not be available for MBS. We agreed to have procedure completed on Saturday.
--- NOTE | 2024-10-10 12:21 | P.PNUR_ITS ---
Progress Note: A&P Assessment and Plan (1) Bilateral hydronephrosis: Code(s): N13.30 - Unspecified hydronephrosis Status: Acute Assessment and Plan: 1. As creatinine is improving, will defer nephrostomy placement today. May restart heparin as procedure has been canceled. With improving renal function, risk of procedure and anesthesia seem higher than benefit at this juncture. He may require PCN in the future. I have discussed with his family at the bedside and they are in agreement. 2. Maintain Ayala and continue trending chemistries. (2) Hydronephrosis, left: Code(s): N13.30 - Unspecified hydronephrosis Status: Acute (3) Bladder rupture: Code(s): N32.89 - Other specified disorders of bladder Status: Acute Subjective Subjective Date/Time Seen: 10/10/24 12:21 Interval history: Renal function improving, will hold off on nephrostomy placement today per plan discussed with Dr. Nice. Exam Narrative: NAD, lethargic warm dry extremities S/NT/ND Catheter with hematuric urine Objective Data Vital Signs Vital Signs: Vital Signs - 24 hr 10/09/24 14:00 10/09/24 14:00 10/09/24 14:15 Temperature Pulse Rate 91 85 91 Respiratory Rate Blood Pressure 109/43 L 109/43 L Pulse Oximetry 93 Oxygen Delivery Oxygen Flow Rate Fraction of Inspired Oxygen 10/09/24 16:00 10/09/24 16:00 10/09/24 16:00 Temperature Pulse Rate 89 82 Respiratory Rate Blood Pressure 94/60 L Pulse Oximetry 94 Oxygen Delivery Simple Face Mask Oxygen Flow Rate 25 Fraction of Inspired Oxygen 35 10/09/24 16:28 10/09/24 18:00 10/09/24 18:00 Temperature 98.2 F Pulse Rate 89 93 85 Respiratory Rate 28 H Blood Pressure 94/60 L 111/61 Pulse Oximetry 93 Oxygen Delivery Oxygen Flow Rate Fraction of Inspired Oxygen 10/09/24 18:27 10/09/24 19:27 10/09/24 20:00 Temperature 98.4 F Pulse Rate 93 96 96 Respiratory Rate 18 Blood Pressure 111/61 113/55 L 113/55 L Pulse Oximetry 92 94 Oxygen Delivery Oxygen Flow Rate Fraction of Inspired Oxygen 10/09/24 20:00 10/09/24 20:00 10/09/24 20:17 Temperature Pulse Rate 81 Respiratory Rate Blood Pressure Pulse Oximetry 93 93 Oxygen Delivery High Flow Therapy with Na High Flow Therapy with Na Oxygen Flow Rate 25 25 Fraction of Inspired Oxygen 35 35 10/09/24 22:00 10/09/24 22:14 10/09/24 22:14 Temperature Pulse Rate 87 83 83 Respiratory Rate Blood Pressure 107/55 L 107/55 L Pulse Oximetry Oxygen Delivery Oxygen Flow Rate Fraction of Inspired Oxygen 10/09/24 22:20 10/09/24 23:33 10/10/24 00:00 Temperature 97.8 F Pulse Rate 85 75 Respiratory Rate 22 H 18 Blood Pressure 110/60 Pulse Oximetry 96 92 92 Oxygen Delivery BiPAP High Flow Therapy with Na Oxygen Flow Rate 25 Fraction of Inspired Oxygen 35 10/10/24 00:00 10/10/24 00:32 10/10/24 01:55 Temperature Pulse Rate 86 86 80 Respiratory Rate 18 Blood Pressure 110/60 121/60 Pulse Oximetry 94 Oxygen Delivery Oxygen Flow Rate Fraction of Inspired Oxygen 10/10/24 02:00 10/10/24 02:02 10/10/24 03:58 Temperature 98.7 F Pulse Rate 81 76 89 Respiratory Rate 18 Blood Pressure 114/59 L 118/63 Pulse Oximetry 92 Oxygen Delivery Oxygen Flow Rate Fraction of Inspired Oxygen 10/10/24 04:00 10/10/24 04:00 10/10/24 04:23 Temperature Pulse Rate 84 85 Respiratory Rate Blood Pressure 118/63 Pulse Oximetry 93 Oxygen Delivery High Flow Therapy with Na Oxygen Flow Rate 25 Fraction of Inspired Oxygen 35 10/10/24 06:00 10/10/24 06:00 10/10/24 08:00 Temperature 97.7 F Pulse Rate 79 72 Respiratory Rate 17 Blood Pressure 114/58 L Pulse Oximetry 99 95 Oxygen Delivery High Flow Therapy with Na Oxygen Flow Rate 25 Fraction of Inspired Oxygen 35 10/10/24 08:07 10/10/24 09:28 10/10/24 10:00 Temperature 98.1 F 97.6 F Pulse Rate 72 76 88 Respiratory Rate 20 16 20 Blood Pressure 100/49 L 125/55 L Pulse Oximetry 99 94 100 Oxygen Delivery High Flow Nasal Cannula Oxygen Flow Rate 25 Fraction of Inspired Oxygen 35 10/10/24 11:44 Temperature 97.8 F Pulse Rate 72 Respiratory Rate 22 H Blood Pressure 120/57 L Pulse Oximetry 99 Oxygen Delivery Oxygen Flow Rate Fraction of Inspired Oxygen Intake/Output Intake/Output: Intake & Output 10/07/24 10/08/24 10/09/24 10/10/24 23:59 23:59 23:59 23:59 Intake Total 1179.8 627.7 80.8 Output Total 350 1350 450 Balance 829.8 -722.3 -369.2 Meds/Results Medications: Active Medications Generic Name Dose Route Start Last Admin Trade Name Freq PRN Reason Stop Dose Admin Acetaminophen 650 mg 10/08/24 06:42 Acetaminophen 325 Mg Tablet PO Q4H PRN Mild Pain (1-3) or Fever Fentanyl Citrate 25 mcg 10/09/24 10:01 Fentanyl Citrate Inj (*Crx) 100 Mcg/2 Ml Vial IV PUSH Q2M PRN Pain Piperacillin Sod/Tazobactam Sod 2.25 gm in 50 mls @ 100 mls/hr 10/08/24 21:00 10/10/24 03:56 Zosyn 2.25 Gm/Ns 50 Ml IVPB Infused Q6H AN Infusion Diltiazem HCl 100 mg in 100 mls @ 5 mls/hr 10/09/24 02:15 10/10/24 04:23 Cardizem 100 Mg/100 Ml IV CONT 5 mg/hr .Q20H AN 5 mls/hr Infusion 5 MG/HR Sodium Chloride 500 mls @ 30 mls/hr 10/09/24 10:05 10/09/24 12:39 Normal Saline Iv IV CONT Infused .[id number] AN Infusion Sodium Chloride 500 mls @ 30 mls/hr 10/09/24 10:05 Normal Saline Iv IV CONT .[id number] AN Sodium Chloride 1,000 mls @ 50 mls/hr 10/09/24 19:05 10/09/24 19:16 Normal Saline Iv IV CONT 50 mls/hr .Q20H AN Administration Ondansetron HCl 4 mg 10/09/24 10:01 Ondansetron Inj 4 Mg/2 Ml Vial IV PUSH ONCE PRN Nausea Radiology Results: ITS Impressions Venous Doppler Study 10/08/24 15:09 IMPRESSION: Bilateral deep vein thrombosis. Abdomen/Pelvis CT 10/09/24 07:02 Impression: Persistent severe left hydroureteronephrosis. Impingement/obstruction or injury to the distal left ureter remains a consideration. Right hydronephrosis is nearly completely resolved. Ayala catheter now within the urinary bladder which shows diffuse wall thickening, which could reflect cystitis/inflammatory change. Large bladder diverticula, with persistent contrast distending the left bladder diverticulum. Possible tiny amount of residual extraluminal contrast extraperitoneally anterior to the urinary bladder.. Small amount of abdominopelvic ascites. Moderate right pleural effusion and small left pleural effusion with right lower lobe atelectasis. Stable large hepatic mass, indeterminate, as detailed on recent prior CT scans. Fluoroscopy 10/09/24 12:46 IMPRESSION: 1. Fluoroscopy utilized during attempted cystogram. See procedure note for further detail. Labs Labs: Laboratory Results - last 24 hr 10/10/24 04:31 WBC 11.5 H RBC 3.02 L Hgb 9.2 L Hct 29.7 L MCV 98.3 MCH 30.5 MCHC 31.0 L RDW 14.9 H Plt Count 221 MPV 9.8 Immature Gran % (Auto) 1.0 H Neut % (Auto) 91.6 H Lymph % (Auto) 4.8 L [place] % (Auto) 2.0 L Eos % (Auto) 0.3 Baso % (Auto) 0.3 Lymph # (Auto) 0.55 L [place] # (Auto) 0.2 Eos # (Auto) 0.0 Baso # (Auto) 0.0 Abs Immat Gran (auto) 0.11 H Absolute Neuts (auto) 10.5 H Absolute Nucleated RBC 0.000 Band Neutrophils % 0 Nucleated RBC % 0.0 Platelet Estimate Adequate Anisocytosis 1+ Ovalocytes 1+ [place] Cells 1+ Schistocytes None seen PT 15.0 H INR 1.1 APTT 34.4 Sodium 142 Potassium 3.6 Chloride 108 H Carbon Dioxide 19 L Anion Gap 15 H BUN 57 H Creatinine 2.13 H Estim Creat Clear Calc 20 Estimated GFR 29 L Glucose 86 Calcium 7.9 L Phosphorus 4.4 Magnesium 2.9 H Total Bilirubin 0.7 AST 99 H ALT 19 Alkaline Phosphatase 82 Total Protein 5.0 L Albumin 2.8 L
[2024-10-10 13:50] LABS: Prothrombin Time 14.2 Seconds (11.1-14.7)
[2024-10-10 13:51] LABS: Partial Thromboplastin Time 31.6 Seconds (22.3-36.8)
--- NOTE | 2024-10-10 13:52 | PM.IMPN ---
Progress Note: A&P Assessment and Plan (1) Acute hypoxemic respiratory failure: Code(s): J96.01 - Acute respiratory failure with hypoxia Status: Acute Assessment and Plan: Patient was on room air on admission but quickly developed hypoxia requiring nonrebreather then bipap. CXR showing minimal right pleural effusion with mild bibasilar chronic interstitial change or interstitial edema. CT Abd showing a 5 mm right middle lobe nodule and moderate right pleural effusion. Consider aspiration. Consider PE since he has been off his Warfarin and not yet started on Eliquis and now with DVTs. Consider PNA vs CHF. CT Abd now showing moderate right and small left pleural effusion ans atelectasis. On abx for possible PNA but felt less likely. He was weaned off BiPAP and switched to HFNC. Wean off O2 as tolerated. (2) Sepsis: Code(s): A41.9 - Sepsis, unspecified organism Status: Acute Assessment and Plan: Patient has developed symptoms of severe sepsis with tachycardia, hypoxia, PIO, and HoTN. Clinically patient with poor perfusion BP soft but better now. [place] related to peritonitis from bladder perforation, urine in abd cavity and Enterococcus UTI. BCx NGTD. UCx growing pansensitive Enterococcus Lactic down to 1.5. PCT was 31. MRSA screen negative. Continue Zosyn. (3) Extraperitoneal rupture of bladder: Code(s): N32.89 - Other specified disorders of bladder Status: Acute Assessment and Plan: CT abd/pelvis concerning for bladder perforation. CR cystogram showing Ayala catheter balloon appears to extend beyond the anterior margin of the bladder wall. Contrast extravasates from the anterior bladder, more apparent on prone images, compatible with extraperitoneal bladder rupture. There are large bilateral bladder diverticula, which are prominently distended with urine, and filled with administered contrast. Moderate abdominopelvic ascites, possible urinary ascites again present. Severe bilateral hydronephrosis noted. Ayala was placed and urology consulted. Repeat CT scan showing right hydronephrosis better but persistent left hydronephrosis. Small amount of of abdominopelvic ascites. Unable to place left ureteral stent so plan for left nephrostomy tube. Heparin stopped on 10/09 for the procedure today per radiology recs but procedure cancelled now since Cr improved. Okay to resume Heparin drip per urology. Monitor UOP and renal function. Appreciate urology input (4) Hyperkalemia: Code(s): E87.5 - Hyperkalemia Status: Acute Assessment and Plan: Potassium 6.5 on admission felt related to PIO and possibly re-absorption from urine in the pelvis. EKG showing no peaked T waves. Hyperkalemia treated appropriately Potassium normal now. Follow up labs showing normal potassium now. Follow. (5) Acute kidney injury: Code(s): N17.9 - Acute kidney failure, unspecified Status: Acute Assessment and Plan: Patient with PIO with Cr 4.7 and BUN 71. He has had normal baseline Cr last year but 1.3-1.6 earlier this year. May have been developing this urine retention over time resulting in the increasing Cr. Elevated Cr related to urine in the pelvis as well. Cr continues to trend down. Monitor UOP, renal function and electrolytes (6) UTI (urinary tract infection): Code(s): N39.0 - Urinary tract infection, site not specified Status: Acute Assessment and Plan: UA with UCx on 10/06 growing 100K colonies of maurice-sensitive enterococcus. BCx NGTD Repeat UCx also growing maurice-sensitive Enterococcus. Continue Zosyn (7) Peritonitis: Code(s): K65.9 - Peritonitis, unspecified Status: Acute Assessment and Plan: As above (8) Bilateral hydronephrosis: Code(s): N13.30 - Unspecified hydronephrosis Status: Acute Assessment and Plan: As above (9) Liver mass: Code(s): R16.0 - Hepatomegaly, not elsewhere classified Status: Acute Assessment and Plan: CT scan also showing an extremely large lobulated mildly heterogeneous mass probably arising from the inferior right hepatic lobe and extending inferiorly, measuring 16.7 x 11.0 x 14.5 cm in size. LFTs are okay. He does have a hx of basal cell. Will plan for further evaluation this admission or as outpatient (10) Paroxysmal atrial fibrillation: Code(s): I48.0 - Paroxysmal atrial fibrillation Status: Acute Assessment and Plan: Patient developed AFib/RVR in the ED. Probably chronic AFib (EKG on 09/29/24 and in 2019 show AFib) Prior to admission, he was being transitioned from Warfarin to Eliquis but has not started Eliquis yet. INR 1.1 He was given metoprolol 5mg IV once then Diltiazem 10mg IV once before starting Diltiazem 5mg/hr drip. This may have resulted in soft BP. Rate better controlled. Continue diltiazem drip. Monitor on tele. Wean to metoprolol when able. (11) DVT (deep venous thrombosis): Code(s): I82.409 - Acute embolism and thrombosis of unspecified deep veins of unspecified lower extremity Status: Acute Assessment and Plan: LE venous dopplers showing: RLE with peroneal and posterior tibial DVT. LLE with popliteal, posterior tibial and peroneal DVT. Consider hypoxia related to PE. Started heparin drip since benefit outweighs risk. Heparin was on hold for nephrostomy tube placement but this was cancelled. Resume Heparin drip. (12) Stage III chronic kidney disease: Code(s): N18.3 - Chronic kidney disease, stage 3 (moderate) Status: Acute Assessment and Plan: As above (13) Memory deficit: Code(s): R41.3 - Other amnesia Status: Acute Assessment and Plan: Patient has a hx of memory issues and was started on Namenda recently Hold for now but resume when more stable Plan Disp - increase activity now Diet - Remains NPO since unable to get MBS for the past [address] Dobhoff and start Nepro. Swithc to oral feeding if he passes his MBS. DVT Prophylaxis - Heparin Code status - full Subjective Date/time seen: 10/10/24 13:52 Interval history: 88yo male with HLD, stage III CKD, AFib on anticoagulation, and hx of skin cancer with resection around right lateral neck who presents to the ED with daughter with complaints of lower abdominal pain. Persistent abd pain. No SOB or CP. No flatus or BMs. Exam Narrative: AF 97.8 120/57 72 22 99% 6L HFNC Gen - ill appearing thin male in NARD Chest - decreased BS in the flanks and clear anteriorly. CV - irregularly irregular and tachycardic. Distant S1-S2. Tele showing AFib with controlled rate. Abd - soft, lower abd pain. - Ayala secured draining red colored urine. Ext - trace-1+ pitting pedal edema. Neuro - awake, fatigued. Psych - normal mood and affect Skin - bilateral UE bruising noted with healing skin tears Objective Data Vital Signs Vital Signs: Vital Signs - 24 hr 10/09/24 14:00 10/09/24 14:00 10/09/24 14:15 Temperature Pulse Rate 91 85 91 Respiratory Rate Blood Pressure 109/43 L 109/43 L Pulse Oximetry 93 Oxygen Delivery Oxygen Flow Rate Fraction of Inspired Oxygen 10/09/24 16:00 10/09/24 16:00 10/09/24 16:00 Temperature Pulse Rate 89 82 Respiratory Rate Blood Pressure 94/60 L Pulse Oximetry 94 Oxygen Delivery Simple Face Mask Oxygen Flow Rate 25 Fraction of Inspired Oxygen 35 10/09/24 16:28 10/09/24 18:00 10/09/24 18:00 Temperature 98.2 F Pulse Rate 89 93 85 Respiratory Rate 28 H Blood Pressure 94/60 L 111/61 Pulse Oximetry 93 Oxygen Delivery Oxygen Flow Rate Fraction of Inspired Oxygen 10/09/24 18:27 10/09/24 19:27 10/09/24 20:00 Temperature 98.4 F Pulse Rate 93 96 96 Respiratory Rate 18 Blood Pressure 111/61 113/55 L 113/55 L Pulse Oximetry 92 94 Oxygen Delivery Oxygen Flow Rate Fraction of Inspired Oxygen 10/09/24 20:00 10/09/24 20:00 10/09/24 20:17 Temperature Pulse Rate 81 Respiratory Rate Blood Pressure Pulse Oximetry 93 93 Oxygen Delivery High Flow Therapy with Na High Flow Therapy with Na Oxygen Flow Rate 25 25 Fraction of Inspired Oxygen 35 35 10/09/24 22:00 10/09/24 22:14 10/09/24 22:14 Temperature Pulse Rate 87 83 83 Respiratory Rate Blood Pressure 107/55 L 107/55 L Pulse Oximetry Oxygen Delivery Oxygen Flow Rate Fraction of Inspired Oxygen 10/09/24 22:20 10/09/24 23:33 10/10/24 00:00 Temperature 97.8 F Pulse Rate 85 75 Respiratory Rate 22 H 18 Blood Pressure 110/60 Pulse Oximetry 96 92 92 Oxygen Delivery BiPAP High Flow Therapy with Na Oxygen Flow Rate 25 Fraction of Inspired Oxygen 35 10/10/24 00:00 10/10/24 00:32 10/10/24 01:55 Temperature Pulse Rate 86 86 80 Respiratory Rate 18 Blood Pressure 110/60 121/60 Pulse Oximetry 94 Oxygen Delivery Oxygen Flow Rate Fraction of Inspired Oxygen 10/10/24 02:00 10/10/24 02:02 10/10/24 03:58 Temperature 98.7 F Pulse Rate 81 76 89 Respiratory Rate 18 Blood Pressure 114/59 L 118/63 Pulse Oximetry 92 Oxygen Delivery Oxygen Flow Rate Fraction of Inspired Oxygen 10/10/24 04:00 10/10/24 04:00 10/10/24 04:23 Temperature Pulse Rate 84 85 Respiratory Rate Blood Pressure 118/63 Pulse Oximetry 93 Oxygen Delivery High Flow Therapy with Na Oxygen Flow Rate 25 Fraction of Inspired Oxygen 35 10/10/24 06:00 10/10/24 06:00 10/10/24 08:00 Temperature 97.7 F Pulse Rate 79 72 Respiratory Rate 17 Blood Pressure 114/58 L Pulse Oximetry 99 95 Oxygen Delivery High Flow Therapy with Na Oxygen Flow Rate 25 Fraction of Inspired Oxygen 35 10/10/24 08:07 10/10/24 09:28 10/10/24 10:00 Temperature 98.1 F 97.6 F Pulse Rate 72 76 88 Respiratory Rate 20 16 20 Blood Pressure 100/49 L 125/55 L Pulse Oximetry 99 94 100 Oxygen Delivery High Flow Nasal Cannula Oxygen Flow Rate 25 Fraction of Inspired Oxygen 35 10/10/24 11:44 Temperature 97.8 F Pulse Rate 72 Respiratory Rate 22 H Blood Pressure 120/57 L Pulse Oximetry 99 Oxygen Delivery Oxygen Flow Rate Fraction of Inspired Oxygen Intake/Output Intake/Output: Intake & Output 10/07/24 10/08/24 10/09/24 10/10/24 23:59 23:59 23:59 23:59 Intake Total 1179.8 627.7 80.8 Output Total 350 1350 450 Balance 829.8 -722.3 -369.2 Meds/Results Medications: Active Medications Generic Name Dose Route Start Last Admin Trade Name Freq PRN Reason Stop Dose Admin Acetaminophen 650 mg 10/08/24 06:42 Acetaminophen 325 Mg Tablet PO Q4H PRN Mild Pain (1-3) or Fever Fentanyl Citrate 25 mcg 10/09/24 10:01 Fentanyl Citrate Inj (*Crx) 100 Mcg/2 Ml Vial IV PUSH Q2M PRN Pain Heparin Sodium (Porcine) 5,000 units 10/10/24 12:35 Heparin Sodium 5,000 Units/Ml Vial IV PUSH PRN PRN aPTT less than 55 seconds Heparin Sodium (Porcine) 2,500 units 10/10/24 12:36 Heparin Sodium 5,000 Units/Ml Vial IV PUSH PRN PRN aPTT 55 - 70 seconds Piperacillin Sod/Tazobactam Sod 2.25 gm in 50 mls @ 100 mls/hr 10/08/24 21:00 10/10/24 03:56 Zosyn 2.25 Gm/Ns 50 Ml IVPB Infused Q6H AN Infusion Diltiazem HCl 100 mg in 100 mls @ 5 mls/hr 10/09/24 02:15 10/10/24 04:23 Cardizem 100 Mg/100 Ml IV CONT 5 mg/hr .Q20H AN 5 mls/hr Infusion 5 MG/HR Sodium Chloride 500 mls @ 30 mls/hr 10/09/24 10:05 10/09/24 12:39 Normal Saline Iv IV CONT Infused .[id number] AN Infusion Sodium Chloride 500 mls @ 30 mls/hr 10/09/24 10:05 Normal Saline Iv IV CONT .[id number] AN Sodium Chloride 1,000 mls @ 50 mls/hr 10/09/24 19:05 10/09/24 19:16 Normal Saline Iv IV CONT 50 mls/hr .Q20H AN Administration Heparin Sodium/Dextrose 25,000 units in 250 mls @ 10 mls/hr 10/10/24 12:35 Heparin Sodium/D5w 100 Units/Ml IV CONT .Q24H AN Protocol 1,000 UNITS/HR Ondansetron HCl 4 mg 10/09/24 10:01 Ondansetron Inj 4 Mg/2 Ml Vial IV PUSH ONCE PRN Nausea Radiology Results: ITS Impressions Venous Doppler Study 10/08/24 15:09 IMPRESSION: Bilateral deep vein thrombosis. Abdomen/Pelvis CT 10/09/24 07:02 Impression: Persistent severe left hydroureteronephrosis. Impingement/obstruction or injury to the distal left ureter remains a consideration. Right hydronephrosis is nearly completely resolved. Ayala catheter now within the urinary bladder which shows diffuse wall thickening, which could reflect cystitis/inflammatory change. Large bladder diverticula, with persistent contrast distending the left bladder diverticulum. Possible tiny amount of residual extraluminal contrast extraperitoneally anterior to the urinary bladder.. Small amount of abdominopelvic ascites. Moderate right pleural effusion and small left pleural effusion with right lower lobe atelectasis. Stable large hepatic mass, indeterminate, as detailed on recent prior CT scans. Fluoroscopy 10/09/24 12:46 IMPRESSION: 1. Fluoroscopy utilized during attempted cystogram. See procedure note for further detail. Labs Labs: Laboratory Results - last 24 hr 10/10/24 10/10/24 04:31 13:29 WBC 11.5 H RBC 3.02 L Hgb 9.2 L Hct 29.7 L MCV 98.3 MCH 30.5 MCHC 31.0 L RDW 14.9 H Plt Count 221 MPV 9.8 Immature Gran % (Auto) 1.0 H Neut % (Auto) 91.6 H Lymph % (Auto) 4.8 L [place] % (Auto) 2.0 L Eos % (Auto) 0.3 Baso % (Auto) 0.3 Lymph # (Auto) 0.55 L [place] # (Auto) 0.2 Eos # (Auto) 0.0 Baso # (Auto) 0.0 Abs Immat Gran (auto) 0.11 H Absolute Neuts (auto) 10.5 H Absolute Nucleated RBC 0.000 Band Neutrophils % 0 Nucleated RBC % 0.0 Platelet Estimate Adequate Anisocytosis 1+ Ovalocytes 1+ [place] Cells 1+ Schistocytes None seen PT 15.0 H 14.2 INR 1.1 1.0 APTT 34.4 31.6 Sodium 142 Potassium 3.6 Chloride 108 H Carbon Dioxide 19 L Anion Gap 15 H BUN 57 H Creatinine 2.13 H Estim Creat Clear Calc 20 Estimated GFR 29 L Glucose 86 Calcium 7.9 L Phosphorus 4.4 Magnesium 2.9 H Total Bilirubin 0.7 AST 99 H ALT 19 Alkaline Phosphatase 82 Total Protein 5.0 L Albumin 2.8 L
[2024-10-10] MEDS: HEPARIN SOD/D5W 100 UNITS/ML 25,000 UNITS/250 ML BAG 10 UNITS IV CONT (13:54)
[2024-10-10] MEDS: SODIUM CHLORIDE 0.9% IV 1,000 ML 50 ML IV CONT (17:04)
[2024-10-10] MEDS: dilTIAZem 100 MG/100 ML 100 MG/100 ML BAG IV CONT (18:24)
[2024-10-10] MEDS: dilTIAZem HCL 30 MG TABLET FEED TUBE (20:07)
[2024-10-10 20:18] LABS: Partial Thromboplastin Time 51.7 Seconds (22.3-36.8)
[2024-10-10] MEDS: HEPARIN SODIUM 5,000 UNITS/ML VIAL 5000 UNITS IV PUSH (21:18)
[2024-10-11] VITALS (21 sets, daily range): BP systolic 129–147; BP diastolic 58–87; PULSE 65–105; RESP 20; TEMP 36.2–36.9; O2SAT 89–97
[2024-10-11] MEDS: dilTIAZem HCL 30 MG TABLET FEED TUBE ×4 (01:01→18:41)
[2024-10-11] MEDS: PIPERACILLIN/TAZ 2.25G/NS 50ML 2.25 GM/50 ML BAG IVPB ×4 (03:06→21:20)
[2024-10-11 03:46] LABS: Basophils Percent Auto 0.2 % (0.2-1.2); Eosinophils Percent Auto 0.1 % (0-4.4); Hematocrit 31.1 % (42.0-52.0); Hemoglobin 9.8 g/dL (14.0-18.0); Immature Granulocyte Absolute 0.05 K/mm3 (0.00-0.031); Immature Granulocyte Percent A 0.4 % (0-0.5); Lymphocytes Absolute Auto 0.59 K/mm3 (0.9-3.2); Lymphocytes Percent Auto 4.7 % (18.3-44.2); Mean Corpuscular HGB Conc 31.5 g/dl (32-36); Mean Corpuscular Hemoglobin 30.9 pg (26-34); Mean Corpuscular Volume 98.1 fl (80-100); Mean Platelet Volume 9.8 fl (7.4-10.4); Monocytes Absolute Auto 0.3 K/mm3 (0.1-0.6); Neutrophils Absolute Auto 11.6 K/mm3 (1.3-6.7); Neutrophils Percent Auto 92.6 % (45.5-73.1); Platelet Count Result 210 k/mm3 (150-375); Red Blood Count 3.17 M/mm3 (4.6-6.20); Red Cell Distribution Width 14.6 % (11.5-14.5); White Blood Count 12.5 K/mm3 (4.5-10.0)
[2024-10-11 03:59] LABS: Alanine Aminotransferase 20 U/L (6-50); Albumin Level 2.7 g/dL (3.5-5.1); Alkaline Phosphatase 85 U/L (38-126); Anion Gap 12 mmol/L (4-12); Aspartate Amino Transferase 75 U/L (17-59); Bilirubin,Total 0.6 mg/dL (0.2-1.3); Blood Urea Nitrogen 50 mg/dL (9-20); Carbon Dioxide 20 mmol/L (22-30); Chloride 114 mmol/L (98-107); Estimated CRCL calculation 31 ml/min; Estimated Glomerular Filt Rate 50; Glucose 109 mg/dL (65-110); Magnesium 2.8 mg/dL (1.6-2.3); Phosphorus 2.3 mg/dL (2.5-4.5); Potassium 3.1 mmol/L (3.4-5.0); Sodium 146 mmol/L (137-145)
[2024-10-11 04:01] LABS: Partial Thromboplastin Time 93.6 Seconds (22.3-36.8)
[2024-10-11] MEDS: POTASSIUM/PHOSPHORUS/SODIUM 1.5 GM PACKET 1 PACKET FEED TUBE (08:19)
[2024-10-11] MEDS: POTASSIUM CHLORIDE 20 MEQ PACKET (FOR LIQUID) 40 MEQ FEED TUBE (08:19)
[2024-10-11 10:24] LABS: Partial Thromboplastin Time 66.1 Seconds (22.3-36.8)
[2024-10-11] MEDS: HEPARIN SODIUM 5,000 UNITS/ML VIAL 2500 UNITS IV PUSH (10:29)
[2024-10-11] MEDS: HEPARIN SOD/D5W 100 UNITS/ML 25,000 UNITS/250 ML BAG 14 UNITS IV CONT (10:32)
--- NOTE | 2024-10-11 12:45 | P.PNUR_ITS ---
Progress Note: A&P Assessment and Plan (1) Bilateral hydronephrosis: Code(s): N13.30 - Unspecified hydronephrosis Status: Acute Assessment and Plan: 1. As creatinine is improving, will defer nephrostomy placement. 2. Maintain Ayala and continue trending chemistries. 3. Antibiotics per Hospital Medicine. (2) Hydronephrosis, left: Code(s): N13.30 - Unspecified hydronephrosis Status: Acute (3) Bladder rupture: Code(s): N32.89 - Other specified disorders of bladder Status: Acute Subjective Subjective Date/Time Seen: 10/11/24 12:45 Interval history: Patient alert and oriented today, significant improvement in mental status. SCr continues to improve. Exam Narrative: NAD, A&OX3, cachectic RRR eWOB Urine dark, no clots Objective Data Vital Signs Vital Signs: Vital Signs - 24 hr 10/10/24 14:00 10/10/24 14:00 10/10/24 14:00 Temperature 98.5 F Pulse Rate 63 72 63 Respiratory Rate 18 Blood Pressure 116/53 L 116/53 L Pulse Oximetry 93 Oxygen Delivery Oxygen Flow Rate 10/10/24 15:39 10/10/24 16:00 10/10/24 16:00 Temperature 97.7 F Pulse Rate 65 69 Respiratory Rate 18 Blood Pressure 107/42 L Pulse Oximetry 96 94 Oxygen Delivery High Flow Nasal Cannula Oxygen Flow Rate 3 10/10/24 16:00 10/10/24 18:00 10/10/24 18:00 Temperature 97.3 F L Pulse Rate 65 65 68 Respiratory Rate 22 H Blood Pressure 107/42 L 115/57 L Pulse Oximetry 95 Oxygen Delivery Oxygen Flow Rate 10/10/24 18:14 10/10/24 18:24 10/10/24 20:00 Temperature Pulse Rate 80 80 79 Respiratory Rate 18 Blood Pressure 107/42 L 107/42 L 112/42 L Pulse Oximetry 95 Oxygen Delivery Oxygen Flow Rate 10/10/24 20:00 10/10/24 20:00 10/10/24 20:06 Temperature Pulse Rate 67 Respiratory Rate Blood Pressure Pulse Oximetry 92 93 Oxygen Delivery High Flow Nasal Cannula Nasal Cannula Oxygen Flow Rate 3 3 10/10/24 20:08 10/10/24 21:10 10/10/24 22:00 Temperature Pulse Rate 79 67 63 Respiratory Rate Blood Pressure 112/42 L Pulse Oximetry Oxygen Delivery Oxygen Flow Rate 10/10/24 23:15 10/10/24 23:17 10/11/24 00:00 Temperature 97.0 F L Pulse Rate 67 65 Respiratory Rate 18 Blood Pressure 117/62 Pulse Oximetry 92 91 Oxygen Delivery High Flow Nasal Cannula Oxygen Flow Rate 3 10/11/24 01:10 10/11/24 01:49 10/11/24 03:16 Temperature 97.1 F L Pulse Rate 66 66 Respiratory Rate 20 Blood Pressure 129/60 Pulse Oximetry 89 L 92 Oxygen Delivery High Flow Nasal Cannula Oxygen Flow Rate 4 10/11/24 03:18 10/11/24 04:00 10/11/24 05:51 Temperature Pulse Rate 73 81 Respiratory Rate Blood Pressure Pulse Oximetry 92 Oxygen Delivery High Flow Nasal Cannula Oxygen Flow Rate 4 10/11/24 07:10 10/11/24 07:53 10/11/24 08:00 Temperature 97.4 F L Pulse Rate 80 Respiratory Rate 20 Blood Pressure 147/58 H Pulse Oximetry 94 91 94 Oxygen Delivery High Flow Nasal Cannula High Flow Nasal Cannula Oxygen Flow Rate 8 3 10/11/24 08:00 10/11/24 09:08 10/11/24 10:00 Temperature Pulse Rate 77 75 Respiratory Rate Blood Pressure Pulse Oximetry 94 Oxygen Delivery Nasal Cannula Oxygen Flow Rate 3 10/11/24 11:41 10/11/24 12:00 10/11/24 12:00 Temperature 97.1 F L Pulse Rate 91 96 Respiratory Rate 20 Blood Pressure 144/60 H Pulse Oximetry 95 95 Oxygen Delivery High Flow Nasal Cannula Oxygen Flow Rate 3 Intake/Output Intake/Output: Intake & Output 10/08/24 10/09/24 10/10/24 10/11/24 23:59 23:59 23:59 23:59 Intake Total 1179.8 627.7 1388.1 700.9 Output Total 350 1350 1000 825 Balance 829.8 -722.3 388.1 -124.1 Meds/Results Medications: Active Medications Generic Name Dose Route Start Last Admin Trade Name Freq PRN Reason Stop Dose Admin Acetaminophen 650 mg 10/08/24 06:42 Acetaminophen 325 Mg Tablet PO Q4H PRN Mild Pain (1-3) or Fever Diltiazem HCl 30 mg 10/10/24 18:55 10/11/24 05:25 Diltiazem Hcl 30 Mg Tablet FEED TUBE 30 mg Q6HR AN Administration Fentanyl Citrate 25 mcg 10/09/24 10:01 Fentanyl Citrate Inj (*Crx) 100 Mcg/2 Ml Vial IV PUSH Q2M PRN Pain Heparin Sodium (Porcine) 5,000 units 10/10/24 12:35 10/10/24 21:18 Heparin Sodium 5,000 Units/Ml Vial IV PUSH 5,000 units PRN PRN Administration aPTT less than 55 seconds Heparin Sodium (Porcine) 2,500 units 10/10/24 12:36 10/11/24 10:29 Heparin Sodium 5,000 Units/Ml Vial IV PUSH 2,500 units PRN PRN Administration aPTT 55 - 70 seconds Piperacillin Sod/Tazobactam Sod 2.25 gm in 50 mls @ 100 mls/hr 10/08/24 21:00 10/11/24 08:19 Zosyn 2.25 Gm/Ns 50 Ml IVPB 100 mls/hr Q6H AN Administration Heparin Sodium/Dextrose 25,000 units in 250 mls @ 13 mls/hr 10/10/24 12:35 10/11/24 10:32 Heparin Sodium/D5w 100 Units/Ml IV CONT 1,400 units/hr .[id number] AN 14 mls/hr Administration Protocol 1,300 UNITS/HR Ondansetron HCl 4 mg 10/09/24 10:01 Ondansetron Inj 4 Mg/2 Ml Vial IV PUSH ONCE PRN Nausea Radiology Results: ITS Impressions Venous Doppler Study 10/08/24 15:09 IMPRESSION: Bilateral deep vein thrombosis. Abdomen/Pelvis CT 10/09/24 07:02 Impression: Persistent severe left hydroureteronephrosis. Impingement/obstruction or injury to the distal left ureter remains a consideration. Right hydronephrosis is nearly completely resolved. Ayala catheter now within the urinary bladder which shows diffuse wall thickening, which could reflect cystitis/inflammatory change. Large bladder diverticula, with persistent contrast distending the left bladder diverticulum. Possible tiny amount of residual extraluminal contrast extraperitoneally anterior to the urinary bladder.. Small amount of abdominopelvic ascites. Moderate right pleural effusion and small left pleural effusion with right lower lobe atelectasis. Stable large hepatic mass, indeterminate, as detailed on recent prior CT scans. Fluoroscopy 10/09/24 12:46 IMPRESSION: 1. Fluoroscopy utilized during attempted cystogram. See procedure note for further detail. Chest X-Ray 10/11/24 07:35 IMPRESSION: Bibasilar opacification suggestive of atelectasis versus pneumonia with right pleural effusion. Labs Labs: Laboratory Results - last 24 hr 10/10/24 10/10/24 10/11/24 13:29 20:00 03:40 WBC 12.5 H RBC 3.17 L Hgb 9.8 L Hct 31.1 L MCV 98.1 MCH 30.9 MCHC 31.5 L RDW 14.6 H Plt Count 210 MPV 9.8 Immature Gran % (Auto) 0.4 Neut % (Auto) 92.6 H Lymph % (Auto) 4.[address] [facility] % (Auto) 2.0 L Eos % (Auto) 0.1 Baso % (Auto) 0.2 Lymph # (Auto) 0.[address] [facility] # (Auto) 0.3 Eos # (Auto) 0.0 Baso # (Auto) 0.0 Abs Immat Gran (auto) 0.05 H Absolute Neuts (auto) 11.6 H Absolute Nucleated RBC 0.000 Nucleated RBC % 0.0 PT 14.2 INR 1.0 APTT 31.6 51.7 H 93.6 H Sodium 146 H Potassium 3.1 L Chloride 114 H Carbon Dioxide 20 L Anion Gap 12 BUN 50 H Creatinine 1.35 H Estim Creat Clear Calc 31 Estimated GFR 50 L Glucose 109 Calcium 8.0 L Phosphorus 2.3 L Magnesium 2.8 H Total Bilirubin 0.6 AST 75 H ALT 20 Alkaline Phosphatase 85 Total Protein 5.0 L Albumin 2.7 L 10/11/24 09:40 WBC RBC Hgb Hct MCV MCH MCHC RDW Plt Count MPV Immature Gran % (Auto) Neut % (Auto) Lymph % (Auto) [facility] % (Auto) Eos % (Auto) Baso % (Auto) Lymph # (Auto) [facility] # (Auto) Eos # (Auto) Baso # (Auto) Abs Immat Gran (auto) Absolute Neuts (auto) Absolute Nucleated RBC Nucleated RBC % PT INR APTT 66.1 H Sodium Potassium Chloride Carbon Dioxide Anion Gap BUN Creatinine Estim Creat Clear Calc Estimated GFR Glucose Calcium Phosphorus Magnesium Total Bilirubin AST ALT Alkaline Phosphatase Total Protein Albumin
--- NOTE | 2024-10-11 13:39 | PM.IMPN ---
Progress Note: A&P Assessment and Plan (1) Acute hypoxemic respiratory failure: Code(s): J96.01 - Acute respiratory failure with hypoxia Status: Acute Assessment and Plan: Patient was on room air on admission but quickly developed hypoxia requiring nonrebreather then bipap. CXR showing minimal right pleural effusion with mild bibasilar chronic interstitial change or interstitial edema. CT Abd showing a 5 mm right middle lobe nodule and moderate right pleural effusion. Consider aspiration. Consider PE since he has been off his Warfarin and not yet started on Eliquis and now with DVTs. Consider PNA vs CHF. CT Abd now showing moderate right and small left pleural effusion and atelectasis. On abx for possible PNA but felt less likely. He was weaned off BiPAP and switched to HFNC. Able to wean to 3L. Wean off O2 as tolerated. (2) Sepsis: Code(s): A41.9 - Sepsis, unspecified organism Status: Acute Assessment and Plan: Patient has developed symptoms of severe sepsis with tachycardia, hypoxia, PIO, and HoTN. Clinically patient with poor perfusion BP better now. [place] related to peritonitis from bladder perforation, urine in abd cavity and Enterococcus UTI. BCx growing GPC in chains in one aerobic bottle. UCx growing pansensitive Enterococcus Lactic down to 1.5. PCT was 31. MRSA screen negative. WBC climbing. Continue Zosyn. Add Linezolid. Repeat BCx. (3) Extraperitoneal rupture of bladder: Code(s): N32.89 - Other specified disorders of bladder Status: Acute Assessment and Plan: CT abd/pelvis concerning for bladder perforation. CR cystogram showing Ayala catheter balloon appears to extend beyond the anterior margin of the bladder wall. Contrast extravasates from the anterior bladder, more apparent on prone images, compatible with extraperitoneal bladder rupture. There are large bilateral bladder diverticula, which are prominently distended with urine, and filled with administered contrast. Moderate abdominopelvic ascites, possible urinary ascites again present. Severe bilateral hydronephrosis noted. Ayala was placed and urology consulted. Repeat CT scan showing right hydronephrosis better but persistent left hydronephrosis. Small amount of of abdominopelvic ascites. Unable to place left ureteral stent so plan was for left nephrostomy tube but procedure cancelled since Cr improved. Heparin drip resumed Monitor UOP and renal function. Appreciate urology input (4) Hyperkalemia: Code(s): E87.5 - Hyperkalemia Status: Acute Assessment and Plan: Potassium 6.5 on admission felt related to PIO and possibly re-absorption from urine in the pelvis. EKG showing no peaked T waves. Hyperkalemia treated appropriately Potassium normal and remaining normal. Follow. (5) Acute kidney injury: Code(s): N17.9 - Acute kidney failure, unspecified Status: Acute Assessment and Plan: Patient with PIO with Cr 4.7 and BUN 71. He has had normal baseline Cr last year but 1.3-1.6 earlier this year. May have been developing this urine retention over time resulting in the increasing Cr. Elevated Cr related to urine in the pelvis as well. Cr continues to trend down to 1.35. Monitor UOP, renal function and electrolytes (6) UTI (urinary tract infection): Code(s): N39.0 - Urinary tract infection, site not specified Status: Acute Assessment and Plan: UA with UCx on 10/06 growing 100K colonies of maurice-sensitive enterococcus. BCx NGTD Repeat UCx also growing maurice-sensitive Enterococcus. Continue Zosyn (7) Peritonitis: Code(s): K65.9 - Peritonitis, unspecified Status: Acute Assessment and Plan: As above (8) Bilateral hydronephrosis: Code(s): N13.30 - Unspecified hydronephrosis Status: Acute Assessment and Plan: As above (9) Liver mass: Code(s): R16.0 - Hepatomegaly, not elsewhere classified Status: Acute Assessment and Plan: CT scan also showing an extremely large lobulated mildly heterogeneous mass probably arising from the inferior right hepatic lobe and extending inferiorly, measuring 16.7 x 11.0 x 14.5 cm in size. LFTs are okay. He does have a hx of basal cell. Will plan for further evaluation this admission or as outpatient (10) Paroxysmal atrial fibrillation: Code(s): I48.0 - Paroxysmal atrial fibrillation Status: Acute Assessment and Plan: Patient developed AFib/RVR in the ED. Probably chronic AFib (EKG on 09/29/24 and in 2019 show AFib) Prior to admission, he was being transitioned from Warfarin to Eliquis but has not started Eliquis yet. INR 1.1 He was given metoprolol 5mg IV once then Diltiazem 10mg IV once before starting Diltiazem 5mg/hr drip. This may have resulted in soft BP. Rate better controlled. Diltiazem drip change to oral. Monitor on tele. (11) DVT (deep venous thrombosis): Code(s): I82.409 - Acute embolism and thrombosis of unspecified deep veins of unspecified lower extremity Status: Acute Assessment and Plan: LE venous dopplers showing: RLE with peroneal and posterior tibial DVT. LLE with popliteal, posterior tibial and peroneal DVT. Consider his hypoxia related to PE. Started heparin drip since benefit outweighs risk. Continue Heparin drip. (12) Stage III chronic kidney disease: Code(s): N18.3 - Chronic kidney disease, stage 3 (moderate) Status: Acute Assessment and Plan: As above (13) Memory deficit: Code(s): R41.3 - Other amnesia Status: Acute Assessment and Plan: Patient has a hx of memory issues and was started on Namenda recently Hold for now but resume when more stable Plan Disp - increase activity now Diet - Remains NPO since unable to get MBS for the past 2 days. Placed Dobhoff and started Nepro. MBS tomorrow. Advance free water DVT Prophylaxis - Heparin Code status - full Subjective Date/time seen: 10/11/24 13:39 Interval history: 88yo male with HLD, stage III CKD, AFib on anticoagulation, and hx of skin cancer with resection around right lateral neck who presents to the ED with daughter with complaints of lower abdominal pain. Alert but confused. Pulling at tubing. Was hypoxic earlier but better after suctioning and back down to 3L. Review of Systems Review of Systems: ROS unobtainable: Yes unobtainable due to mental status Exam Narrative: AF 97.1 144/60 96 20 95% 3L HFNC Gen - ill appearing thin male in NARD HEENT - Dobhoff secured. Chest - distant BS CV - irregularly irregular. Distant S1-S2. Tele showing AFib with controlled rate. Abd - soft, mild diffuse abd pain. - Ayala secured draining dark red colored urine. Ext - trace periankle edema. Neuro - somnolent, confused. Psych - normal mood and affect Skin - bilateral UE bruising noted with healing skin tears Objective Data Vital Signs Vital Signs: Vital Signs - 24 hr 10/10/24 14:00 10/10/24 14:00 10/10/24 14:00 Temperature 98.5 F Pulse Rate 63 72 63 Respiratory Rate 18 Blood Pressure 116/53 L 116/53 L Pulse Oximetry 93 Oxygen Delivery Oxygen Flow Rate 10/10/24 15:39 10/10/24 16:00 10/10/24 16:00 Temperature 97.7 F Pulse Rate 65 69 Respiratory Rate 18 Blood Pressure 107/42 L Pulse Oximetry 96 94 Oxygen Delivery High Flow Nasal Cannula Oxygen Flow Rate 3 10/10/24 16:00 10/10/24 18:00 10/10/24 18:00 Temperature 97.3 F L Pulse Rate 65 65 68 Respiratory Rate 22 H Blood Pressure 107/42 L 115/57 L Pulse Oximetry 95 Oxygen Delivery Oxygen Flow Rate 10/10/24 18:14 10/10/24 18:24 10/10/24 20:00 Temperature Pulse Rate 80 80 79 Respiratory Rate 18 Blood Pressure 107/42 L 107/42 L 112/42 L Pulse Oximetry 95 Oxygen Delivery Oxygen Flow Rate 10/10/24 20:00 10/10/24 20:00 10/10/24 20:06 Temperature Pulse Rate 67 Respiratory Rate Blood Pressure Pulse Oximetry 92 93 Oxygen Delivery High Flow Nasal Cannula Nasal Cannula Oxygen Flow Rate 3 3 10/10/24 20:08 10/10/24 21:10 10/10/24 22:00 Temperature Pulse Rate 79 67 63 Respiratory Rate Blood Pressure 112/42 L Pulse Oximetry Oxygen Delivery Oxygen Flow Rate 10/10/24 23:15 10/10/24 23:17 10/11/24 00:00 Temperature 97.0 F L Pulse Rate 67 65 Respiratory Rate 18 Blood Pressure 117/62 Pulse Oximetry 92 91 Oxygen Delivery High Flow Nasal Cannula Oxygen Flow Rate 3 10/11/24 01:10 10/11/24 01:49 10/11/24 03:16 Temperature 97.1 F L Pulse Rate 66 66 Respiratory Rate 20 Blood Pressure 129/60 Pulse Oximetry 89 L 92 Oxygen Delivery High Flow Nasal Cannula Oxygen Flow Rate 4 10/11/24 03:18 10/11/24 04:00 10/11/24 05:51 Temperature Pulse Rate 73 81 Respiratory Rate Blood Pressure Pulse Oximetry 92 Oxygen Delivery High Flow Nasal Cannula Oxygen Flow Rate 4 10/11/24 07:10 10/11/24 07:53 10/11/24 08:00 Temperature 97.4 F L Pulse Rate 80 Respiratory Rate 20 Blood Pressure 147/58 H Pulse Oximetry 94 91 94 Oxygen Delivery High Flow Nasal Cannula High Flow Nasal Cannula Oxygen Flow Rate 8 3 10/11/24 08:00 10/11/24 09:08 10/11/24 10:00 Temperature Pulse Rate 77 75 Respiratory Rate Blood Pressure Pulse Oximetry 94 Oxygen Delivery Nasal Cannula Oxygen Flow Rate 3 10/11/24 11:41 10/11/24 12:00 10/11/24 12:00 Temperature 97.1 F L Pulse Rate 91 96 Respiratory Rate 20 Blood Pressure 144/60 H Pulse Oximetry 95 95 Oxygen Delivery High Flow Nasal Cannula Oxygen Flow Rate 3 Intake/Output Intake/Output: Intake & Output 10/08/24 10/09/24 10/10/24 10/11/24 23:59 23:59 23:59 23:59 Intake Total 1179.8 627.7 1388.1 700.9 Output Total 350 1350 1000 825 Balance 829.8 -722.3 388.1 -124.1 Meds/Results Medications: Active Medications Generic Name Dose Route Start Last Admin Trade Name Freq PRN Reason Stop Dose Admin Acetaminophen 650 mg 10/08/24 06:42 Acetaminophen 325 Mg Tablet PO Q4H PRN Mild Pain (1-3) or Fever Diltiazem HCl 30 mg 10/10/24 18:55 10/11/24 13:29 Diltiazem Hcl 30 Mg Tablet FEED TUBE 30 mg Q6HR AN Administration Fentanyl Citrate 25 mcg 10/09/24 10:01 Fentanyl Citrate Inj (*Crx) 100 Mcg/2 Ml Vial IV PUSH Q2M PRN Pain Heparin Sodium (Porcine) 5,000 units 10/10/24 12:35 10/10/24 21:18 Heparin Sodium 5,000 Units/Ml Vial IV PUSH 5,000 units PRN PRN Administration aPTT less than 55 seconds Heparin Sodium (Porcine) 2,500 units 10/10/24 12:36 10/11/24 10:29 Heparin Sodium 5,000 Units/Ml Vial IV PUSH 2,500 units PRN PRN Administration aPTT 55 - 70 seconds Piperacillin Sod/Tazobactam Sod 2.25 gm in 50 mls @ 100 mls/hr 10/08/24 21:00 10/11/24 08:19 Zosyn 2.25 Gm/Ns 50 Ml IVPB 100 mls/hr Q6H AN Administration Heparin Sodium/Dextrose 25,000 units in 250 mls @ 13 mls/hr 10/10/24 12:35 10/11/24 10:32 Heparin Sodium/D5w 100 Units/Ml IV CONT 1,400 units/hr .[id number] AN 14 mls/hr Administration Protocol 1,300 UNITS/HR Ondansetron HCl 4 mg 10/09/24 10:01 Ondansetron Inj 4 Mg/2 Ml Vial IV PUSH ONCE PRN Nausea Radiology Results: ITS Impressions Venous Doppler Study 10/08/24 15:09 IMPRESSION: Bilateral deep vein thrombosis. Abdomen/Pelvis CT 10/09/24 07:02 Impression: Persistent severe left hydroureteronephrosis. Impingement/obstruction or injury to the distal left ureter remains a consideration. Right hydronephrosis is nearly completely resolved. Ayala catheter now within the urinary bladder which shows diffuse wall thickening, which could reflect cystitis/inflammatory change. Large bladder diverticula, with persistent contrast distending the left bladder diverticulum. Possible tiny amount of residual extraluminal contrast extraperitoneally anterior to the urinary bladder.. Small amount of abdominopelvic ascites. Moderate right pleural effusion and small left pleural effusion with right lower lobe atelectasis. Stable large hepatic mass, indeterminate, as detailed on recent prior CT scans. Fluoroscopy 10/09/24 12:46 IMPRESSION: 1. Fluoroscopy utilized during attempted cystogram. See procedure note for further detail. Chest X-Ray 10/11/24 07:35 IMPRESSION: Bibasilar opacification suggestive of atelectasis versus pneumonia with right pleural effusion. Labs Labs: Laboratory Results - last 24 hr 10/10/24 10/10/24 10/11/24 13:29 20:00 03:40 WBC 12.5 H RBC 3.17 L Hgb 9.8 L Hct 31.1 L MCV 98.1 MCH 30.9 MCHC 31.5 L RDW 14.6 H Plt Count 210 MPV 9.8 Immature Gran % (Auto) 0.4 Neut % (Auto) 92.6 H Lymph % (Auto) 4.7 L [place] % (Auto) 2.0 L Eos % (Auto) 0.1 Baso % (Auto) 0.2 Lymph # (Auto) 0.59 L [place] # (Auto) 0.3 Eos # (Auto) 0.0 Baso # (Auto) 0.0 Abs Immat Gran (auto) 0.05 H Absolute Neuts (auto) 11.6 H Absolute Nucleated RBC 0.000 Nucleated RBC % 0.0 PT 14.2 INR 1.0 APTT 31.6 51.7 H 93.6 H Sodium 146 H Potassium 3.1 L Chloride 114 H Carbon Dioxide 20 L Anion Gap 12 BUN 50 H Creatinine 1.35 H Estim Creat Clear Calc 31 Estimated GFR 50 L Glucose 109 Calcium 8.0 L Phosphorus 2.3 L Magnesium 2.8 H Total Bilirubin 0.6 AST 75 H ALT 20 Alkaline Phosphatase 85 Total Protein 5.0 L Albumin 2.7 L 10/11/24 09:40 WBC RBC Hgb Hct MCV MCH MCHC RDW Plt Count MPV Immature Gran % (Auto) Neut % (Auto) Lymph % (Auto) [place] % (Auto) Eos % (Auto) Baso % (Auto) Lymph # (Auto) [place] # (Auto) Eos # (Auto) Baso # (Auto) Abs Immat Gran (auto) Absolute Neuts (auto) Absolute Nucleated RBC Nucleated RBC % PT INR APTT 66.1 H Sodium Potassium Chloride Carbon Dioxide Anion Gap BUN Creatinine Estim Creat Clear Calc Estimated GFR Glucose Calcium Phosphorus Magnesium Total Bilirubin AST ALT Alkaline Phosphatase Total Protein Albumin
[2024-10-11 16:59] LABS: Partial Thromboplastin Time 81.1 Seconds (22.3-36.8)
--- NOTE | 2024-10-11 17:34 | PC.NURSE ---
When placing pt on bedpan, penis was noted to be hard with blanched areas. Balloon to coude was deflated and penis returned to normal turgor. Ayala was navigated back into bladder with small amount of ranjan red blood. Bright red blood dribbling from urethral opening. Dr. Dupont made aware. New orders noted for STAT CT of abd/pelvis. Advised to irrigate catheter prn to keep tube patent. Dr. Sanabria made aware.
--- NOTE | 2024-10-11 19:47 | PC.NURSE ---
Dr. Dupont reports reviewing CT. No urgent issues seen at this time. Informed him that catheter was irrigated with 100 ml which was returned but only 50 mls of output from insertion of catheter. Dr. Dupont reports that if at least 50%-60% of irrigation returns then continue to monitor.
[2024-10-11] MEDS: LINEZOLID 600 MG/300 ML 600 MG/300 ML SOLN 300 MG IVPB (21:20)
[2024-10-12] VITALS (15 sets, daily range): BP systolic 130–148; BP diastolic 52–81; PULSE 85–109; RESP 14–28; TEMP 36.4–37.2; O2SAT 91–100; BMI 20.2
--- NOTE | 2024-10-12 02:08 | PC.NURSE ---
PTT still pending. 0145 RN called lab to check on results. Suze in labs states she will release results.
[2024-10-12] MEDS: PIPERACILLIN/TAZ 2.25G/NS 50ML 2.25 GM/50 ML BAG IVPB ×2 (03:24→08:40)
[2024-10-12] MEDS: HEPARIN SOD/D5W 100 UNITS/ML 25,000 UNITS/250 ML BAG 14 UNITS IV CONT (03:59)
[2024-10-12] MEDS: dilTIAZem HCL 30 MG TABLET FEED TUBE ×5 (05:18→23:00)
[2024-10-12 06:04] LABS: Basophils Percent Auto 0.4 % (0.2-1.2); Eosinophils Percent Auto 0.3 % (0-4.4); Hematocrit 34.7 % (42.0-52.0); Hemoglobin 10.6 g/dL (14.0-18.0); Immature Granulocyte Percent A 1.3 % (0-0.5); Lymphocytes Absolute Auto 0.61 K/mm3 (0.9-3.2); Lymphocytes Percent Auto 7.9 % (18.3-44.2); Mean Corpuscular HGB Conc 30.5 g/dl (32-36); Mean Corpuscular Hemoglobin 29.9 pg (26-34); Mean Corpuscular Volume 97.7 fl (80-100); Mean Platelet Volume 10.2 fl (7.4-10.4); Monocytes Absolute Auto 0.4 K/mm3 (0.1-0.6); Monocytes Percent Auto 5.6 % (2.6-8.5); Neutrophils Absolute Auto 6.5 K/mm3 (1.3-6.7); Neutrophils Percent Auto 84.5 % (45.5-73.1); Platelet Count Result 225 k/mm3 (150-375); Red Blood Count 3.55 M/mm3 (4.6-6.20); Red Cell Distribution Width 14.4 % (11.5-14.5); White Blood Count 7.7 K/mm3 (4.5-10.0)
--- NOTE | 2024-10-12 06:11 | P.PNUR_ITS ---
Progress Note: A&P Assessment and Plan (1) Bilateral hydronephrosis: Code(s): N13.30 - Unspecified hydronephrosis Status: Acute (2) Hydronephrosis, left: Code(s): N13.30 - Unspecified hydronephrosis Status: Acute (3) Bladder rupture: Code(s): N32.89 - Other specified disorders of bladder Status: Acute Assessment and Plan: * Continues improvement in creat. suggest cahteter drainage effective mgmt. for extraperitoneal bladder rupture - as is typically the case/standard management. Will plan to leave catheter for 4-6 weeks before repeat evaluation with cystogram. * Left hydronephrosis uncertain etiology - could be related to incomplete emptying or other obstructive process. Given improved renal function this isn't urgent problem, at some point, left ureteral stent placement indicated. Will need coordination with radiology, anesthesiology and medical service. Subjective Subjective Date/Time Seen: 10/12/24 06:11 Interval history: More alert, family member at bedside reports a quiet night Review of Systems Cardiovascular: Cardiovascular: Denies chest pain, Denies lightheadedness, Denies palpitations and Denies dyspnea Respiratory: Respiratory: Denies dyspnea Gastrointestinal: Gastrointestinal: Denies diarrhea, Denies nausea and Denies vomiting Genitourinary: Genitourinary: Denies hematuria and Denies dysuria Endocrine: Endocrine: Denies palpitations Exam Const: General: no acute distress Resp: Effort & Inspection: normal respiratory effort GI: Inspection: non-distended GI Palp: No abdominal tenderness and No Guarding due to palpation present (GI) Auscultation: normal bowel sounds Urinary Catheter: Urinary Catheter: patent and draining, urine dark and other (irrigates freely/easily) Objective Data Vital Signs Vital Signs: Vital Signs - 24 hr 10/11/24 07:10 10/11/24 07:53 10/11/24 08:00 Temperature 97.4 F L Pulse Rate 80 Respiratory Rate 20 Blood Pressure 147/58 H Pulse Oximetry 94 91 94 Oxygen Delivery High Flow Nasal Cannula High Flow Nasal Cannula Oxygen Flow Rate 8 3 10/11/24 08:00 10/11/24 09:08 10/11/24 10:00 Temperature Pulse Rate 77 75 Respiratory Rate Blood Pressure Pulse Oximetry 94 Oxygen Delivery Nasal Cannula Oxygen Flow Rate 3 10/11/24 11:41 10/11/24 12:00 10/11/24 12:00 Temperature 97.1 F L Pulse Rate 91 96 Respiratory Rate 20 Blood Pressure 144/60 H Pulse Oximetry 95 95 Oxygen Delivery High Flow Nasal Cannula Oxygen Flow Rate 3 10/11/24 14:00 10/11/24 15:50 10/11/24 16:00 Temperature 98.4 F Pulse Rate 91 98 Respiratory Rate 20 Blood Pressure 142/68 H Pulse Oximetry 92 91 Oxygen Delivery High Flow Nasal Cannula Oxygen Flow Rate 3 10/11/24 16:00 10/11/24 18:00 10/11/24 19:42 Temperature 98.2 F Pulse Rate 96 100 97 Respiratory Rate 20 Blood Pressure 139/87 Pulse Oximetry 97 Oxygen Delivery Oxygen Flow Rate 10/11/24 20:00 10/11/24 20:00 10/11/24 22:00 Temperature Pulse Rate 99 105 H Respiratory Rate Blood Pressure Pulse Oximetry 97 Oxygen Delivery High Flow Nasal Cannula Oxygen Flow Rate 3 10/12/24 00:00 10/12/24 00:00 10/12/24 00:00 Temperature 98 F Pulse Rate 85 101 H Respiratory Rate 14 Blood Pressure 148/65 H Pulse Oximetry 93 93 Oxygen Delivery High Flow Nasal Cannula Oxygen Flow Rate 3 10/12/24 02:00 10/12/24 04:00 10/12/24 04:00 Temperature 98.2 F Pulse Rate 100 109 H Respiratory Rate 16 Blood Pressure 148/81 H Pulse Oximetry 94 92 Oxygen Delivery High Flow Nasal Cannula Oxygen Flow Rate 3 10/12/24 04:00 10/12/24 06:00 Temperature Pulse Rate 102 H 97 Respiratory Rate Blood Pressure Pulse Oximetry Oxygen Delivery Oxygen Flow Rate Intake/Output Intake/Output: Intake & Output 10/09/24 10/10/24 10/11/24 10/12/24 23:59 23:59 23:59 23:59 Intake Total 627.7 1388.1 1248.0 1447.2 Output Total 1350 1000 1275 550 Balance -722.3 388.1 -27.0 897.2 Meds/Results Medications: Active Medications Generic Name Dose Route Start Last Admin Trade Name Freq PRN Reason Stop Dose Admin Acetaminophen 650 mg 10/08/24 06:42 Acetaminophen 325 Mg Tablet PO Q4H PRN Mild Pain (1-3) or Fever Diltiazem HCl 30 mg 10/10/24 18:55 04/14/25 05:18 Diltiazem Hcl 30 Mg Tablet FEED TUBE 30 mg Q6HR AN Administration Heparin Sodium (Porcine) 5,000 units 10/10/24 12:35 10/10/24 21:18 Heparin Sodium 5,000 Units/Ml Vial IV PUSH 5,000 units PRN PRN Administration aPTT less than 55 seconds Heparin Sodium (Porcine) 2,500 units 10/10/24 12:36 10/11/24 10:29 Heparin Sodium 5,000 Units/Ml Vial IV PUSH 2,500 units PRN PRN Administration aPTT 55 - 70 seconds Piperacillin Sod/Tazobactam Sod 2.25 gm in 50 mls @ 100 mls/hr 10/08/24 21:00 10/12/24 03:54 Zosyn 2.25 Gm/Ns 50 Ml IVPB Infused Q6H AN Infusion Heparin Sodium/Dextrose 25,000 units in 250 mls @ 13 mls/hr 10/10/24 12:35 10/12/24 03:59 Heparin Sodium/D5w 100 Units/Ml IV CONT 1,400 units/hr .[id number] AN 14 mls/hr Administration Protocol 1,300 UNITS/HR Linezolid 600 mg in 300 mls @ 300 mls/hr 10/11/24 21:00 10/11/24 22:20 Zyvox IVPB Infused Q12HR AN Infusion Ondansetron HCl 4 mg 10/09/24 10:01 Ondansetron Inj 4 Mg/2 Ml Vial IV PUSH ONCE PRN Nausea Radiology Results: ITS Impressions Venous Doppler Study 10/08/24 15:09 IMPRESSION: Bilateral deep vein thrombosis. Fluoroscopy 10/09/24 12:46 IMPRESSION: 1. Fluoroscopy utilized during attempted cystogram. See procedure note for further detail. Chest X-Ray 10/11/24 07:35 IMPRESSION: Bibasilar opacification suggestive of atelectasis versus pneumonia with right pleural effusion. Abdomen/Pelvis CT 10/11/24 19:22 IMPRESSION: Bibasilar atelectasis/consolidation and bilateral pleural effusions. A feeding tube terminates in the stomach. Stable severe left and recurrent mild-moderate right hydronephrosis. Small fluid and gas collection anterior to the urinary bladder likely representing the site of prior rupture, the tip of the current Ayala catheter terminates in this region and may be extraluminal. Increasing size of the bilateral fluid and gas collections adjacent to the urinary bladder, may represent large bladder diverticula. Possible cystitis. Increasing, mild ascites. Labs Labs: Laboratory Results - last 24 hr 10/11/24 10/11/24 10/12/24 09:40 16:39 00:47 WBC RBC Hgb Hct MCV MCH MCHC RDW Plt Count MPV Immature Gran % (Auto) Neut % (Auto) Lymph % (Auto) [place] % (Auto) Eos % (Auto) Baso % (Auto) Lymph # (Auto) [place] # (Auto) Eos # (Auto) Baso # (Auto) Abs Immat Gran (auto) Absolute Neuts (auto) Absolute Nucleated RBC Nucleated RBC % APTT 66.1 H 81.1 H 72.0 H 10/12/24 05:46 WBC 7.7 RBC 3.55 L Hgb 10.6 L Hct 34.7 L MCV 97.7 MCH 29.9 MCHC 30.5 L RDW 14.4 Plt Count 225 MPV 10.2 Immature Gran % (Auto) 1.3 H Neut % (Auto) 84.5 H Lymph % (Auto) 7.9 L [place] % (Auto) 5.6 Eos % (Auto) 0.3 Baso % (Auto) 0.4 Lymph # (Auto) 0.61 L [place] # (Auto) 0.4 Eos # (Auto) 0.0 Baso # (Auto) 0.0 Abs Immat Gran (auto) 0.10 H Absolute Neuts (auto) 6.5 Absolute Nucleated RBC 0.000 Nucleated RBC % 0.0 APTT
[2024-10-12 06:18] LABS: Alanine Aminotransferase 30 U/L (6-50); Albumin Level 2.8 g/dL (3.5-5.1); Alkaline Phosphatase 127 U/L (38-126); Anion Gap 6 mmol/L (4-12); Aspartate Amino Transferase 72 U/L (17-59); Bilirubin,Total 0.7 mg/dL (0.2-1.3); Blood Urea Nitrogen 42 mg/dL (9-20); Calcium 8.8 mg/dL (8.4-10.2); Carbon Dioxide 28 mmol/L (22-30); Chloride 116 mmol/L (98-107); Estimated CRCL calculation 35 ml/min; Estimated Glomerular Filt Rate > 60; Glucose 122 mg/dL (65-110); Magnesium 2.4 mg/dL (1.6-2.3); Phosphorus 1.2 mg/dL (2.5-4.5); Potassium 3.3 mmol/L (3.4-5.0); Sodium 150 mmol/L (137-145)
[2024-10-12] MEDS: LINEZOLID 600 MG/300 ML 600 MG/300 ML SOLN 300 MG IVPB (08:40)
[2024-10-12 08:49] LABS: Partial Thromboplastin Time 61.3 Seconds (22.3-36.8)
--- NOTE | 2024-10-12 10:08 | P.PNIM_ITS ---
Progress Note: A&P Assessment and Plan (1) Acute hypoxemic respiratory failure: Code(s): J96.01 - Acute respiratory failure with hypoxia Status: Acute Assessment and Plan: Patient was on room air on admission but quickly developed hypoxia requiring nonrebreather then bipap. CXR showing minimal right pleural effusion with mild bibasilar chronic interstitial change or interstitial edema. CT Abd showing a 5 mm right middle lobe nodule and moderate right pleural effusion. Possible multifocal possible aspiration, PE patient had been off his warfarin had not yet started his Eliquis now present with DVTs, pneumonia, and CHF. * On abx for possible PNA but felt less likely. normal WBC and remains afebrile. Transitioned to PO Linezolid * He was weaned off BiPAP and switched to HFNC. Able to wean to 3L. looks like he was increased overnight back to 6 L this is likely due to increased mucous production has cough with thick secretions suction at bedside and added guaifenesin per tube * Wean off O2 as tolerated. * CTA may be beneficial to determine if patient has PE and degree but with his renal issues it will need to be deferred. Heparin Gtt and echo did not show right heart strain (2) Sepsis: Code(s): A41.9 - Sepsis, unspecified organism Status: Acute Assessment and Plan: Patient has developed symptoms of severe sepsis with tachycardia, hypoxia, PIO, and HoTN. Clinically patient with poor perfusion BP better now. [place] related to peritonitis from bladder perforation, urine in abd cavity and Enterococcus UTI. BCx growing GPC in chains in one aerobic bottle. * UCx growing pansensitive Enterococcus * Normal WBC * D/C Zosyn. switched to Linezolid per tube based on cultures. * Repeat BCx. NGTD 48Qhrs (3) Extraperitoneal rupture of bladder: Code(s): N32.89 - Other specified disorders of bladder Status: Acute Assessment and Plan: CT abd/pelvis concerning for bladder perforation. CR cystogram showing Ayala catheter balloon appears to extend beyond the anterior margin of the bladder wall. Contrast extravasates from the anterior bladder, more apparent on prone images, compatible with extraperitoneal bladder rupture. There are large bilateral bladder diverticula, which are prominently distended with urine, and filled with administered contrast. Moderate abdominopelvic ascites, possible urinary ascites again present. Severe bilateral hydronephrosis noted. Ayala was placed and urology consulted. * Repeat CT scan showing right hydronephrosis better but persistent left hydronephrosis. Small amount of of abdominopelvic ascites. * Unable to place left ureteral stent so plan was for left nephrostomy tube planned for today 10/12/2024 * Heparin drip resumed * Monitor UOP and renal function. Appreciate urology input * Will need Ayala for 4-6 weeks and placement of left ureteral stent once infectious process has cleared (4) UTI (urinary tract infection): Code(s): N39.0 - Urinary tract infection, site not specified Status: Acute Assessment and Plan: * UA with UCx on 10/06 growing 100K colonies of maurice-sensitive enterococcus. * BCx NGTD Q24hr * Repeat UCx also growing maurice-sensitive Enterococcus. * D/C Zosyn transitioned to oral Linezolid per tube. (5) Peritonitis: Code(s): K65.9 - Peritonitis, unspecified Status: Acute Assessment and Plan: SEE ABOVE (6) Bilateral hydronephrosis: Code(s): N13.30 - Unspecified hydronephrosis Status: Acute Assessment and Plan: As above (7) Liver mass: Code(s): R16.0 - Hepatomegaly, not elsewhere classified Status: Acute Assessment and Plan: CT scan also showing an extremely large lobulated mildly heterogeneous mass probably arising from the inferior right hepatic lobe and extending inferiorly, measuring 16.7 x 11.0 x 14.5 cm in size. * LFTs are okay monitor daily * He does have a hx of basal cell. Will plan for further evaluation this admission or as outpatient (8) Paroxysmal atrial fibrillation: Code(s): I48.0 - Paroxysmal atrial fibrillation Status: Acute Assessment and Plan: Patient developed AFib/RVR in the ED. Probably chronic AFib (EKG on 09/29/24 and in 2019 show AFib) prior to admission, he was being transitioned from Warfarin to Eliquis but had not started his Eliquis yet INR was 1.1 POA. received metoprolol 5mg IV once then Diltiazem 10mg IV once before starting Diltiazem 5mg/hr drip. * Rate better controlled. Continue Oral Diltiazem * Continue to Monitor on tele. (9) DVT (deep venous thrombosis): Code(s): I82.409 - Acute embolism and thrombosis of unspecified deep veins of unspecified lower extremity Status: Acute Assessment and Plan: LE venous dopplers showing: RLE with peroneal and posterior tibial DVT. LLE with popliteal, posterior tibial and peroneal DVT. potentially PE contributing to patient's hypoxia as well * Continue Heparin Gtt while NPO can hopefully transitioned to Eliquis pending swallow evaluation (10) Stage III chronic kidney disease: Code(s): N18.3 - Chronic kidney disease, stage 3 (moderate) Status: Acute Assessment and Plan: As above (11) Memory deficit: Code(s): R41.3 - Other amnesia Status: Acute Assessment and Plan: Patient has a hx of memory issues and was started on Namenda recently * Continue to hold for now but resume when more stable (12) Hypokalemia: Code(s): E87.6 - Hypokalemia Status: Acute Assessment and Plan: patient initially with hyperkalemia on admission however currently today he is 3.3 a 40 mEq IV * serial CMPs replenish as needed keep K+ >4.0 * patient currently on cardiac monitoring (13) Hypernatremia: Code(s): E87.0 - Hyperosmolality and hypernatremia Status: Acute Assessment and Plan: patient hypernatremic at 150 a.m. today likely secondary to tube feedings * increased free water flushes from 75-150 q.6 * serial sodium levels (14) Acute kidney injury: Code(s): N17.9 - Acute kidney failure, unspecified Status: Resolved Assessment and Plan: Patient with PIO with Cr 4.7 and BUN 71. He has had normal baseline Cr last year but 1.3-1.6 earlier this year. May have been developing this urine retention over time resulting in the increasing Cr. Elevated Cr related to urine in the pelvis as well. Cr continued to trend down 1.13 today appears resolved. * Monitor UOP, renal function and electrolytes (15) Hyperkalemia: Code(s): E87.5 - Hyperkalemia Status: Resolved Assessment and Plan: Potassium 6.5 on admission felt related to PIO and possibly re-absorption from urine in the pelvis. EKG showing no peaked T waves. Hyperkalemia treated appropriately Potassium normal and remaining normal. Follow. (16) Dysphagia: Code(s): R13.10 - Dysphagia, unspecified Status: Acute Assessment and Plan: Patient with possible aspiration PNA, difficulty swallowing with respiratory failure with hypoxia. Dobhoff had been placed and he is currently getting tube feeds was continued due to alert mental status but since has improved. * Barium scheduled for tomorrow/speech consulted * spoke with patient about potential need for peg tube if patient fails multiple barium swallows. (17) Protein-calorie malnutrition, severe: Code(s): E43 - Unspecified severe protein-calorie malnutrition Status: Acute Assessment and Plan: Failure to thrive could be secondary to liver mass pending evaluation. Currently on tube feedings per dobhoff barium swallow 10/13/2024 * Tube feeds * consulted religious studies professor * if able to eat post evaluation would add ensure to every meal Plan Code status: Full code per patient DVT prophylaxis: Heparin gtt Stress ulcer prophylaxis: Pantoprazole IV PT/OT notes: PT/OT pending Disposition: patient remains admitted to IMU will continue to wean oxygen as tolerated plan for barium swallow for dysphagia currently with Dobbhoff placed for feeding hydronephrosis improving plan for Nephrostomy tube 10/12/2024. Barium swallow tomorrow pending swallow evaluation discussion for peg tube if he fails. Advance care planning discussion with family Time Spent With Patient Time with patient: 25 - 35 minutes Subjective Date/time seen: 10/12/24 10:08 Interval history: 88yo male with HLD, stage III CKD, AFib on anticoagulation, and hx of skin cancer with resection around right lateral neck who presents to the ED with daughter with complaints of lower abdominal pain. 10/12/2024: Patient lethargic but did answer questions appropriately. 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 Patient denied pain at this time current needing 6L HF but did have quite a bit of secretions and was attempting to cough and clear on own I did have discussion with Family regarding advance care a this time if patient is to fail swallow study with potential need for peg tube placement and continued aggressive treatment. At this time they would still like him to remain a full code pending the swallow evaluation as well as PT/OT evaluation. Review of Systems Review of Systems: Lethargic but answering questions alert x 2 to 3 All systems reviewed & are unremarkable except as noted in HPI and below Exam Narrative: Gen - ill appearing thin male, Lethargic but answering questions alert x 2 to 3 Family at bedside HEENT - Dobhoff secured. Chest - Clear but productive cough with thick secretions CV - irregularly irregular. Distant S1-S2. Tele showing AFib with controlled rate. Abd - soft, mild diffuse abd pain. - Ayala secured draining red colored urine. Ext - trace periankle edema. Neuro - somnolent, Alert did answer question appropriately Psych - Withdrawn Skin - bilateral UE bruising noted with healing skin tears Objective Data Vital Signs Vital Signs: Vital Signs - 24 hr 10/11/24 11:41 10/11/24 12:00 10/11/24 12:00 Temperature 97.1 F L Pulse Rate 91 96 Respiratory Rate 20 Blood Pressure 144/60 H Pulse Oximetry 95 95 Oxygen Delivery High Flow Nasal Cannula Oxygen Flow Rate 3 10/11/24 14:00 10/11/24 15:50 10/11/24 16:00 Temperature 98.4 F Pulse Rate 91 98 Respiratory Rate 20 Blood Pressure 142/68 H Pulse Oximetry 92 91 Oxygen Delivery High Flow Nasal Cannula Oxygen Flow Rate 3 10/11/24 16:00 10/11/24 18:00 10/11/24 19:42 Temperature 98.2 F Pulse Rate 96 100 97 Respiratory Rate 20 Blood Pressure 139/87 Pulse Oximetry 97 Oxygen Delivery Oxygen Flow Rate 10/11/24 20:00 10/11/24 20:00 10/11/24 22:00 Temperature Pulse Rate 99 105 H Respiratory Rate Blood Pressure Pulse Oximetry 97 Oxygen Delivery High Flow Nasal Cannula Oxygen Flow Rate 3 10/12/24 00:00 10/12/24 00:00 10/12/24 00:00 Temperature 98 F Pulse Rate 85 101 H Respiratory Rate 14 Blood Pressure 148/65 H Pulse Oximetry 93 93 Oxygen Delivery High Flow Nasal Cannula Oxygen Flow Rate 3 10/12/24 02:00 10/12/24 04:00 10/12/24 04:00 Temperature 98.2 F Pulse Rate 100 109 H Respiratory Rate 16 Blood Pressure 148/81 H Pulse Oximetry 94 92 Oxygen Delivery High Flow Nasal Cannula Oxygen Flow Rate 3 10/12/24 04:00 10/12/24 06:00 10/12/24 07:25 Temperature 97.8 F Pulse Rate 102 H 97 105 H Respiratory Rate 26 H Blood Pressure 133/52 L Pulse Oximetry 91 Oxygen Delivery Oxygen Flow Rate 10/12/24 08:00 10/12/24 08:00 Temperature Pulse Rate 95 Respiratory Rate 20 Blood Pressure Pulse Oximetry 92 92 Oxygen Delivery High Flow Nasal Cannula High Flow Nasal Cannula Oxygen Flow Rate 6 6 Intake/Output Intake/Output: Intake & Output 10/09/24 10/10/24 10/11/24 10/12/24 23:59 23:59 23:59 23:59 Intake Total 627.7 1388.1 1248.0 1447.2 Output Total 1350 1000 1275 550 Balance -722.3 388.1 -27.0 897.2 Meds/Results Medications: Active Medications Generic Name Dose Route Start Last Admin Trade Name Freq PRN Reason Stop Dose Admin Acetaminophen 650 mg 10/08/24 06:42 Acetaminophen 325 Mg Tablet PO Q4H PRN Mild Pain (1-3) or Fever Diltiazem HCl 30 mg 10/10/24 18:55 10/12/24 05:18 Diltiazem Hcl 30 Mg Tablet FEED TUBE 30 mg Q6HR AN Administration Heparin Sodium (Porcine) 5,000 units 10/10/24 12:35 10/10/24 21:18 Heparin Sodium 5,000 Units/Ml Vial IV PUSH 5,000 units PRN PRN Administration aPTT less than 55 seconds Heparin Sodium (Porcine) 2,500 units 10/10/24 12:36 10/11/24 10:29 Heparin Sodium 5,000 Units/Ml Vial IV PUSH 2,500 units PRN PRN Administration aPTT 55 - 70 seconds Piperacillin Sod/Tazobactam Sod 2.25 gm in 50 mls @ 100 mls/hr 10/08/24 21:00 10/12/24 08:40 Zosyn 2.25 Gm/Ns 50 Ml IVPB 100 mls/hr Q6H AN Administration Heparin Sodium/Dextrose 25,000 units in 250 mls @ 13 mls/hr 10/10/24 12:35 10/12/24 03:59 Heparin Sodium/D5w 100 Units/Ml IV CONT 1,400 units/hr .[id number] AN 14 mls/hr Administration Protocol 1,300 UNITS/HR Linezolid 600 mg in 300 mls @ 300 mls/hr 10/11/24 21:00 10/12/24 08:40 Zyvox IVPB 300 mls/hr Q12HR AN Administration Ondansetron HCl 4 mg 10/09/24 10:01 Ondansetron Inj 4 Mg/2 Ml Vial IV PUSH ONCE PRN Nausea Radiology Results: ITS Impressions Venous Doppler Study 10/08/24 15:09 IMPRESSION: Bilateral deep vein thrombosis. Fluoroscopy 10/09/24 12:46 IMPRESSION: 1. Fluoroscopy utilized during attempted cystogram. See procedure note for further detail. Chest X-Ray 10/11/24 07:35 IMPRESSION: Bibasilar opacification suggestive of atelectasis versus pneumonia with right pleural effusion. Abdomen/Pelvis CT 10/11/24 19:22 IMPRESSION: Bibasilar atelectasis/consolidation and bilateral pleural effusions. A feeding tube terminates in the stomach. Stable severe left and recurrent mild-moderate right hydronephrosis. Small fluid and gas collection anterior to the urinary bladder likely representing the site of prior rupture, the tip of the current Ayala catheter terminates in this region and may be extraluminal. Increasing size of the bilateral fluid and gas collections adjacent to the urinary bladder, may represent large bladder diverticula. Possible cystitis. Increasing, mild ascites. Labs Labs: Laboratory Results - last 24 hr 10/11/24 10/11/24 10/12/24 09:40 16:39 00:47 WBC RBC Hgb Hct MCV MCH MCHC RDW Plt Count MPV Immature Gran % (Auto) Neut % (Auto) Lymph % (Auto) [place] % (Auto) Eos % (Auto) Baso % (Auto) Lymph # (Auto) [place] # (Auto) Eos # (Auto) Baso # (Auto) Abs Immat Gran (auto) Absolute Neuts (auto) Absolute Nucleated RBC Nucleated RBC % APTT 66.1 H 81.1 H 72.0 H Sodium Potassium Chloride Carbon Dioxide Anion Gap BUN Creatinine Estim Creat Clear Calc Estimated GFR Glucose Calcium Phosphorus Magnesium Total Bilirubin AST ALT Alkaline Phosphatase Total Protein Albumin 10/12/24 10/12/24 05:46 08:14 WBC 7.7 RBC 3.55 L Hgb 10.6 L Hct 34.7 L MCV 97.7 MCH 29.9 MCHC 30.5 L RDW 14.4 Plt Count 225 MPV 10.2 Immature Gran % (Auto) 1.3 H Neut % (Auto) 84.5 H Lymph % (Auto) 7.9 L [place] % (Auto) 5.6 Eos % (Auto) 0.3 Baso % (Auto) 0.4 Lymph # (Auto) 0.61 L [place] # (Auto) 0.4 Eos # (Auto) 0.0 Baso # (Auto) 0.0 Abs Immat Gran (auto) 0.10 H Absolute Neuts (auto) 6.5 Absolute Nucleated RBC 0.000 Nucleated RBC % 0.0 APTT 61.3 H Sodium 150 H Potassium 3.3 L Chloride 116 H Carbon Dioxide 28 Anion Gap 6 BUN 42 H Creatinine 1.13 Estim Creat Clear Calc 35 Estimated GFR > 60 Glucose 122 H Calcium 8.8 Phosphorus 1.2 L Magnesium 2.4 H Total Bilirubin 0.7 AST 72 H ALT 30 Alkaline Phosphatase 127 H Total Protein 6.0 L Albumin 2.8 L Quality VTE Prophylaxis VTE prophylaxis: pharmacologic ordered -Patient's previous records reviewed on admission -ER notes reviewed in detail on admission -discussed all findings and current treatment plan with patient/Family/POA -Consultations reviewed for recommendations -Patient's disposition for safe discharge discussed with oil field caser Dictation performed by [employer] direct speech recognition software, therefore clinical registered nurse variants and typographical errors may occur. Hospitalist MIPS Advance Care Plan I have confirmed that the patient's Advanced Care Plan is present, code status is documented, or surrogate decision maker is listed in patient medical record.: Yes Medication Reconciliation I have utilized all available resources to obtain, update and review the patients current medications (includes all prescriptions, OTC, herbals, cannabis, and nutritional supplements).: Yes The patient is not eligible for med reconciliation; the patient is in a emergent medical situation where delaying treatment would jeopardize the patients health.: No
[2024-10-12] MEDS: POTASSIUM CHLORIDE INJ 40 MEQ in SODIUM CHLORIDE 0.9% IV 500 ML 130 MEQ IVPB (10:50)
[2024-10-12 11:48] LABS: Glucose Point of Care 98 mg/dl (65-105)
[2024-10-12 14:17] LABS: Prothrombin Time 13.7 Seconds (11.1-14.7)
[2024-10-12 14:18] LABS: Partial Thromboplastin Time 27.4 Seconds (22.3-36.8)
--- NOTE | 2024-10-12 14:40 | PC.NURSE ---
Patient off the unit to Radiology department, with family at bedside.
[2024-10-12 17:45] LABS: Glucose Point of Care 113 mg/dl (65-105)
[2024-10-12] MEDS: LINEZOLID 600 MG TABLET FEED TUBE (20:21)
[2024-10-13] VITALS (16 sets, daily range): BP systolic 130–153; BP diastolic 54–76; PULSE 86–126; RESP 24–26; TEMP 36.3–36.9; O2SAT 91–100
[2024-10-13 04:46] LABS: Basophils Percent Auto 0.5 % (0.2-1.2); Eosinophils Absolute Auto 0.1 K/mm3 (0-0.3); Eosinophils Percent Auto 1.3 % (0-4.4); Hematocrit 36.7 % (42.0-52.0); Immature Granulocyte Absolute 0.07 K/mm3 (0.00-0.031); Immature Granulocyte Percent A 1.1 % (0-0.5); Lymphocytes Absolute Auto 0.72 K/mm3 (0.9-3.2); Lymphocytes Percent Auto 11.7 % (18.3-44.2); Mean Corpuscular Hemoglobin 30.6 pg (26-34); Mean Corpuscular Volume 101.9 fl (80-100); Mean Platelet Volume 10.1 fl (7.4-10.4); Monocytes Absolute Auto 0.4 K/mm3 (0.1-0.6); Monocytes Percent Auto 6.8 % (2.6-8.5); Neutrophils Absolute Auto 4.9 K/mm3 (1.3-6.7); Neutrophils Percent Auto 78.6 % (45.5-73.1); Platelet Count Result 200 k/mm3 (150-375); Red Cell Distribution Width 14.4 % (11.5-14.5); White Blood Count 6.2 K/mm3 (4.5-10.0)
[2024-10-13 05:03] LABS: Alanine Aminotransferase 32 U/L (6-50); Albumin Level 2.9 g/dL (3.5-5.1); Alkaline Phosphatase 110 U/L (38-126); Anion Gap 9 mmol/L (4-12); Aspartate Amino Transferase 66 U/L (17-59); Bilirubin,Total 0.5 mg/dL (0.2-1.3); Blood Urea Nitrogen 33 mg/dL (9-20); Calcium 8.9 mg/dL (8.4-10.2); Carbon Dioxide 23 mmol/L (22-30); Chloride 115 mmol/L (98-107); Estimated CRCL calculation 45 ml/min; Estimated Glomerular Filt Rate > 60; Glucose 110 mg/dL (65-110); Magnesium 2.3 mg/dL (1.6-2.3); Phosphorus 1.2 mg/dL (2.5-4.5); Potassium 3.7 mmol/L (3.4-5.0); Sodium 147 mmol/L (137-145)
[2024-10-13] MEDS: dilTIAZem HCL 30 MG TABLET FEED TUBE ×3 (05:46→18:07)
--- NOTE | 2024-10-13 06:30 | P.PNUR_ITS ---
Progress Note: A&P Assessment and Plan (1) Hydronephrosis, left: Code(s): N13.30 - Unspecified hydronephrosis Status: Acute (2) Bladder rupture: Code(s): N32.89 - Other specified disorders of bladder Status: Acute Assessment and Plan: * Left nephrostomy placed yesterday without incident. * Mgmt. of extraperitoneal bladder rupture will consist of catheter drainage with repeat cystogram in 4-6 weeks. Typically, extraperitoneal ruptures will heal spontaneously. * Left hydronephrosis will require, at some point, attempt to internalize a left ureteral stent (antegrade, thru nephrostomy tube) and pyelogram/ureteroscopy. With indwelling nephrostomy this isn't urgent and can be addressed in the future, once more medically stable. Subjective Subjective Date/Time Seen: 10/13/24 06:30 Interval history: No acute events overnight Left nephrostomy in place, tolerating well Review of Systems Review of Systems: ROS unobtainable: Yes unobtainable due to mental status Exam Const: General: no acute distress Resp: Effort & Inspection: normal respiratory effort GI: Inspection: non-distended GI Palp: No abdominal tenderness and No Guarding due to palpation present (GI) Auscultation: normal bowel sounds Urinary Catheter: Urinary Catheter: patent and draining, urine dark and other (irrigates freely/easily) Objective Data Vital Signs Vital Signs: Vital Signs - 24 hr 10/12/24 07:25 10/12/24 08:00 10/12/24 08:00 Temperature 97.8 F Pulse Rate 105 H 95 Respiratory Rate 26 H 20 Blood Pressure 133/52 L Pulse Oximetry 91 92 92 Oxygen Delivery High Flow Nasal Cannula High Flow Nasal Cannula Oxygen Flow Rate 6 6 10/12/24 08:00 10/12/24 10:00 10/12/24 12:00 Temperature 98.3 F Pulse Rate 87 86 88 Respiratory Rate 26 H Blood Pressure 146/80 H Pulse Oximetry 97 Oxygen Delivery Oxygen Flow Rate 10/12/24 12:00 10/12/24 12:00 10/12/24 14:00 Temperature Pulse Rate 99 99 101 H Respiratory Rate 20 Blood Pressure Pulse Oximetry 98 Oxygen Delivery High Flow Nasal Cannula Oxygen Flow Rate 6 10/12/24 16:00 10/12/24 16:00 10/12/24 16:00 Temperature 98.9 F Pulse Rate 103 H 98 103 H Respiratory Rate 28 H 20 Blood Pressure 130/57 L Pulse Oximetry 100 100 Oxygen Delivery High Flow Nasal Cannula Oxygen Flow Rate 4 10/12/24 18:00 10/12/24 18:16 10/12/24 20:00 Temperature 97.5 F L Pulse Rate 93 99 102 H Respiratory Rate 15 26 H Blood Pressure 137/73 Pulse Oximetry 99 96 Oxygen Delivery High Flow Nasal Cannula Oxygen Flow Rate 2 10/12/24 20:00 10/12/24 20:00 10/12/24 22:00 Temperature Pulse Rate 95 94 Respiratory Rate Blood Pressure Pulse Oximetry 96 Oxygen Delivery High Flow Nasal Cannula Oxygen Flow Rate 2 10/12/24 23:36 10/13/24 00:00 10/13/24 00:00 Temperature 97.6 F Pulse Rate 108 H 91 Respiratory Rate 26 H Blood Pressure 138/73 Pulse Oximetry 97 99 Oxygen Delivery High Flow Nasal Cannula Oxygen Flow Rate 2 10/13/24 02:00 10/13/24 03:37 10/13/24 04:00 Temperature 97.6 F Pulse Rate 93 92 Respiratory Rate 26 H Blood Pressure 136/54 L Pulse Oximetry 91 92 Oxygen Delivery High Flow Nasal Cannula Oxygen Flow Rate 2 10/13/24 04:00 10/13/24 06:00 Temperature Pulse Rate 97 104 H Respiratory Rate Blood Pressure Pulse Oximetry Oxygen Delivery Oxygen Flow Rate Intake/Output Intake/Output: Intake & Output 10/10/24 10/11/24 10/12/24 10/13/24 23:59 23:59 23:59 23:59 Intake Total 1388.1 1248.0 2968.4 980 Output Total 1000 1275 1500 700 Balance 388.1 -27.0 1468.4 280 Meds/Results Medications: Active Medications Generic Name Dose Route Start Last Admin Trade Name Freq PRN Reason Stop Dose Admin Acetaminophen 650 mg 10/08/24 06:42 Acetaminophen 325 Mg Tablet PO Q4H PRN Mild Pain (1-3) or Fever Diltiazem HCl 30 mg 10/10/24 18:55 10/13/24 05:46 Diltiazem Hcl 30 Mg Tablet FEED TUBE 30 mg Q6HR AN Administration Guaifenesin 200 mg 10/12/24 14:28 Guaifenesin 200 Mg/10 Ml Udc FEED TUBE Q4H PRN Cough Heparin Sodium (Porcine) 5,000 units 10/10/24 12:35 10/10/24 21:18 Heparin Sodium 5,000 Units/Ml Vial IV PUSH 5,000 units PRN PRN Administration aPTT less than 55 seconds Heparin Sodium (Porcine) 2,500 units 10/10/24 12:36 10/11/24 10:29 Heparin Sodium 5,000 Units/Ml Vial IV PUSH 2,500 units PRN PRN Administration aPTT 55 - 70 seconds Heparin Sodium/Dextrose 25,000 units in 250 mls @ 0 mls/hr 10/10/24 12:35 10/12/24 16:58 Heparin Sodium/D5w 100 Units/Ml IV CONT Not Given .Q0M AN Protocol 0 UNITS/HR Linezolid 600 mg 10/12/24 21:00 10/12/24 20:21 Linezolid 600 Mg Tablet FEED TUBE 600 mg Q12HR AN Administration Ondansetron HCl 4 mg 10/09/24 10:01 Ondansetron Inj 4 Mg/2 Ml Vial IV PUSH ONCE PRN Nausea Pantoprazole Sodium 40 mg 10/13/24 09:00 Pantoprazole Sodium Iv 40 Mg Vial IV PUSH QAM [facility] Radiology Results: ITS Impressions Venous Doppler Study 10/08/24 15:09 IMPRESSION: Bilateral deep vein thrombosis. Fluoroscopy 10/09/24 12:46 IMPRESSION: 1. Fluoroscopy utilized during attempted cystogram. See procedure note for further detail. Chest X-Ray 10/11/24 07:35 IMPRESSION: Bibasilar opacification suggestive of atelectasis versus pneumonia with right pleural effusion. Abdomen/Pelvis CT 10/11/24 19:22 IMPRESSION: Bibasilar atelectasis/consolidation and bilateral pleural effusions. A feeding tube terminates in the stomach. Stable severe left and recurrent mild-moderate right hydronephrosis. Small fluid and gas collection anterior to the urinary bladder likely representing the site of prior rupture, the tip of the current Ayala catheter terminates in this region and may be extraluminal. Increasing size of the bilateral fluid and gas collections adjacent to the urinary bladder, may represent large bladder diverticula. Possible cystitis. Increasing, mild ascites. Nephrostomy Tube Placement 10/12/24 16:58 IMPRESSION: 1. Successful CT-guided left percutaneous nephrostomy tube placement with tube in expected position with formed loop in the left renal pelvis. The catheter will be managed by Dr. Nice. 2. 50 mL of clear pale straw-colored fluid was aspirated and sent to the lab for Gram stain and cultures. Labs Labs: Laboratory Results - last 24 hr 10/12/24 10/12/24 10/12/24 08:14 11:46 13:57 WBC RBC Hgb Hct MCV MCH MCHC RDW Plt Count MPV Immature Gran % (Auto) Neut % (Auto) Lymph % (Auto) [place] % (Auto) Eos % (Auto) Baso % (Auto) Lymph # (Auto) [place] # (Auto) Eos # (Auto) Baso # (Auto) Abs Immat Gran (auto) Absolute Neuts (auto) Absolute Nucleated RBC Nucleated RBC % PT 13.7 INR 1.0 APTT 61.3 H 27.4 Sodium Potassium Chloride Carbon Dioxide Anion Gap BUN Creatinine Estim Creat Clear Calc Estimated GFR Glucose POC Capillary Glucose 98 Calcium Phosphorus Magnesium Total Bilirubin AST ALT Alkaline Phosphatase Total Protein Albumin 10/12/24 10/13/24 17:42 04:37 WBC 6.2 RBC 3.60 L Hgb 11.0 L Hct 36.7 L MCV 101.9 H MCH 30.6 MCHC 30.0 L RDW 14.4 Plt Count 200 MPV 10.1 Immature Gran % (Auto) 1.1 H Neut % (Auto) 78.6 H Lymph % (Auto) 11.7 L [place] % (Auto) 6.8 Eos % (Auto) 1.3 Baso % (Auto) 0.5 Lymph # (Auto) 0.72 L [place] # (Auto) 0.4 Eos # (Auto) 0.1 Baso # (Auto) 0.0 Abs Immat Gran (auto) 0.07 H Absolute Neuts (auto) 4.9 Absolute Nucleated RBC 0.000 Nucleated RBC % 0.0 PT INR APTT Sodium 147 H Potassium 3.7 Chloride 115 H Carbon Dioxide 23 Anion Gap 9 BUN 33 H Creatinine 0.88 Estim Creat Clear Calc 45 Estimated GFR > 60 Glucose 110 POC Capillary Glucose 113 H Calcium 8.9 Phosphorus 1.2 L Magnesium 2.3 Total Bilirubin 0.5 AST 66 H ALT 32 Alkaline Phosphatase 110 Total Protein 6.0 L Albumin 2.9 L
[2024-10-13 08:26] LABS: Partial Thromboplastin Time 25.7 Seconds (22.3-36.8)
[2024-10-13] MEDS: PANTOPRAZOLE SODIUM IV 40 MG VIAL IV PUSH (08:47)
[2024-10-13] MEDS: LINEZOLID 600 MG TABLET FEED TUBE ×2 (08:47→20:47)
[2024-10-13] MEDS: HEPARIN SODIUM 5,000 UNITS/ML VIAL 5000 UNITS IV PUSH (08:48)
[2024-10-13 11:51] LABS: Glucose Point of Care 117 mg/dl (65-105)
--- NOTE | 2024-10-13 12:35 | PCNFU ---
Nutrition Follow-Up Complete: Excessive energy intake related to current tube feeding orders as evidenced by orders exceeding estimated needs Goal:Meet estimated needs Pt current nutrition is NPO, Tube feeding: Nepro @ 60ml/hr. Nutrition recommendation: change to Jevity 1.5 and a rate of 55ml/hr to better meet needs Last recorded weight is 60.9 kg. Bowel Motility:+BM 10/13 Labs Reviewed: Hgb:11, HCT:36.7, Alb:2.9, Na:147, BUN:33, Phos:1.2 Meds Noted: heparin Skin:WNL Additional Notes: Pt has a dobhoff in, tube feeding running with Nepro @ 60ml/hr, providing 2376kcals, 107g protein per day. This is exceeding pt's estimated needs. Also noted pt's renal labs are improved. Pt went down for a MBS today, recommendations from speech are for NPO to continue due to swallow dysfunction. Recommend to resume tube feeding but change to Jevity 1.5 formula and a goal rate of 55ml/hr over 22hrs to provide 1815kcals, 77g protein, 919ml free water. Recommend a flush of 150ml q 4 hrs for a total of 1819ml free water over 24hrs. This is more appropriate for pt's needs at this time. *Noted bolus conversion: 300ml bolus QID, 150ml flushes q 4 hrs. Monitor tube feedings, tolerance, wt, labs. Follow up every Saturday and Saturday.
--- NOTE | 2024-10-13 12:43 | PCDIET ---
Tube feeding: Recommend to resume tube feeding but change to Jevity 1.5 formula and a goal rate of 55ml/hr over 22hrs to provide 1815kcals, 77g protein, 919ml free water. Recommend a flush of 150ml q 4 hrs for a total of 1819ml free water over 24hrs. This is more appropriate for pt's needs at this time. *Noted bolus conversion: 300ml bolus QID, 150ml flushes q 4 hrs.
[2024-10-13 15:07] LABS: Hematocrit 33.9 % (42.0-52.0); Hemoglobin 10.6 g/dL (14.0-18.0); Mean Corpuscular HGB Conc 31.3 g/dl (32-36); Mean Corpuscular Hemoglobin 30.1 pg (26-34); Mean Corpuscular Volume 96.3 fl (80-100); Platelet Count Result 211 k/mm3 (150-375); Red Blood Count 3.52 M/mm3 (4.6-6.20); Red Cell Distribution Width 14.2 % (11.5-14.5); White Blood Count 7.4 K/mm3 (4.5-10.0)
[2024-10-13 15:23] LABS: Partial Thromboplastin Time 112.4 Seconds (22.3-36.8)
--- NOTE | 2024-10-13 17:23 | P.PNIM_ITS ---
Progress Note: A&P Assessment and Plan (1) Acute hypoxemic respiratory failure: Code(s): J96.01 - Acute respiratory failure with hypoxia Status: Acute Assessment and Plan: Patient was on room air on admission but quickly developed hypoxia requiring nonrebreather then bipap. CXR showing minimal right pleural effusion with mild bibasilar chronic interstitial change or interstitial edema. CT Abd showing a 5 mm right middle lobe nodule and moderate right pleural effusion. Possible multifocal possible aspiration, PE patient had been off his warfarin had not yet started his Eliquis now present with DVTs, pneumonia, and CHF. * On abx for possible PNA but felt less likely. normal WBC and remains afebrile. Transitioned to PO Linezolid * He was weaned off BiPAP and switched to HFNC. Able to wean to 3L. looks like he was increased overnight back to 6 L this is likely due to increased mucous production has cough with thick secretions suction at bedside and added guaifenesin per tube * Wean off O2 as tolerated. * CTA may be beneficial to determine if patient has PE and degree but with his renal issues it will need to be deferred. Heparin Gtt and echo did not show right heart strain (2) Sepsis: Code(s): A41.9 - Sepsis, unspecified organism Status: Acute Assessment and Plan: Patient has developed symptoms of severe sepsis with tachycardia, hypoxia, PIO, and HoTN. Clinically patient with poor perfusion BP better now. [place] related to peritonitis from bladder perforation, urine in abd cavity and Enterococcus UTI. BCx growing GPC in chains in one aerobic bottle. * UCx growing pansensitive Enterococcus * Normal WBC * D/C Zosyn. switched to Linezolid per tube based on cultures. * Repeat BCx. NGTD 48Qhrs (3) Extraperitoneal rupture of bladder: Code(s): N32.89 - Other specified disorders of bladder Status: Acute Assessment and Plan: CT abd/pelvis concerning for bladder perforation. CR cystogram showing Ayala catheter balloon appears to extend beyond the anterior margin of the bladder wall. Contrast extravasates from the anterior bladder, more apparent on prone images, compatible with extraperitoneal bladder rupture. There are large bilateral bladder diverticula, which are prominently distended with urine, and filled with administered contrast. Moderate abdominopelvic ascites, possible urinary ascites again present. Severe bilateral hydronephrosis noted. Ayala was placed and urology consulted. * Repeat CT scan showing right hydronephrosis better but persistent left hydronephrosis. Small amount of of abdominopelvic ascites. * Unable to place left ureteral stent so plan was for left nephrostomy tube planned for today 10/12/2024 * Heparin drip resumed * Monitor UOP and renal function. Appreciate urology input * Will need Ayala for 4-6 weeks and placement of left ureteral stent once infectious process has cleared (4) UTI (urinary tract infection): Code(s): N39.0 - Urinary tract infection, site not specified Status: Acute Assessment and Plan: * UA with UCx on 10/06 growing 100K colonies of maurice-sensitive enterococcus. * BCx NGTD Q24hr * Repeat UCx also growing maurice-sensitive Enterococcus. * D/C Zosyn transitioned to oral Linezolid per tube. (5) Peritonitis: Code(s): K65.9 - Peritonitis, unspecified Status: Acute Assessment and Plan: SEE ABOVE (6) Bilateral hydronephrosis: Code(s): N13.30 - Unspecified hydronephrosis Status: Acute Assessment and Plan: As above (7) Liver mass: Code(s): R16.0 - Hepatomegaly, not elsewhere classified Status: Acute Assessment and Plan: CT scan also showing an extremely large lobulated mildly heterogeneous mass probably arising from the inferior right hepatic lobe and extending inferiorly, measuring 16.7 x 11.0 x 14.5 cm in size. * LFTs are okay monitor daily * He does have a hx of basal cell. Will plan for further evaluation this admission or as outpatient (8) Paroxysmal atrial fibrillation: Code(s): I48.0 - Paroxysmal atrial fibrillation Status: Acute Assessment and Plan: Patient developed AFib/RVR in the ED. Probably chronic AFib (EKG on 09/29/24 and in 2019 show AFib) prior to admission, he was being transitioned from Warfarin to Eliquis but had not started his Eliquis yet INR was 1.1 POA. received metoprolol 5mg IV once then Diltiazem 10mg IV once before starting Diltiazem 5mg/hr drip. * Rate better controlled. Continue Oral Diltiazem * Continue to Monitor on tele. (9) DVT (deep venous thrombosis): Code(s): I82.409 - Acute embolism and thrombosis of unspecified deep veins of unspecified lower extremity Status: Acute Assessment and Plan: LE venous dopplers showing: RLE with peroneal and posterior tibial DVT. LLE with popliteal, posterior tibial and peroneal DVT. potentially PE contributing to patient's hypoxia as well * Continue Heparin Gtt while NPO can hopefully transitioned to Eliquis pending swallow evaluation (10) Stage III chronic kidney disease: Code(s): N18.3 - Chronic kidney disease, stage 3 (moderate) Status: Acute Assessment and Plan: As above (11) Memory deficit: Code(s): R41.3 - Other amnesia Status: Acute Assessment and Plan: Patient has a hx of memory issues and was started on Namenda recently * Continue to hold for now but resume when more stable (12) Hypokalemia: Code(s): E87.6 - Hypokalemia Status: Acute Assessment and Plan: patient initially with hyperkalemia on admission however currently today he is 3.3 a 40 mEq IV * serial CMPs replenish as needed keep K+ >4.0 * patient currently on cardiac monitoring (13) Hypernatremia: Code(s): E87.0 - Hyperosmolality and hypernatremia Status: Acute Assessment and Plan: patient hypernatremic at 150 a.m. today likely secondary to tube feedings * increased free water flushes from 75-150 q.6 * serial sodium levels (14) Acute kidney injury: Code(s): N17.9 - Acute kidney failure, unspecified Status: Resolved Assessment and Plan: Patient with PIO with Cr 4.7 and BUN 71. He has had normal baseline Cr last year but 1.3-1.6 earlier this year. May have been developing this urine retention over time resulting in the increasing Cr. Elevated Cr related to urine in the pelvis as well. Cr continued to trend down 1.13 today appears resolved. * Monitor UOP, renal function and electrolytes (15) Hyperkalemia: Code(s): E87.5 - Hyperkalemia Status: Resolved Assessment and Plan: Potassium 6.5 on admission felt related to PIO and possibly re-absorption from urine in the pelvis. EKG showing no peaked T waves. Hyperkalemia treated appropriately Potassium normal and remaining normal. Follow. (16) Dysphagia: Code(s): R13.10 - Dysphagia, unspecified Status: Acute Assessment and Plan: Patient with possible aspiration PNA, difficulty swallowing with respiratory failure with hypoxia. Dobhoff had been placed and he is currently getting tube feeds was continued due to alert mental status but since has improved. * Barium scheduled for tomorrow/speech consulted * spoke with patient about potential need for peg tube if patient fails multiple barium swallows. (17) Protein-calorie malnutrition, severe: Code(s): E43 - Unspecified severe protein-calorie malnutrition Status: Acute Assessment and Plan: Failure to thrive could be secondary to liver mass pending evaluation. Currently on tube feedings per dobhoff barium swallow 10/13/2024 * Tube feeds * consulted hose seamer * if able to eat post evaluation would add ensure to every meal Plan Patient just returned from urology labs had a nephrostomy tube place to drain, patient is quite somnolent and unable to provide any ROS or details, a family friend present in the room, later in the afternoon I went and spoke with patient daughter and gave updates on patient condition, also discuss with the daughter and and his , they both have agreed to change the code to DNR, as patient is elderly and frail. patient has several chronic illness and his quality of life is less likely to improve and discuss possible hospice for the patient. family will discuss with hospice team and further Code status: Full code per patient DVT prophylaxis: Heparin gtt Stress ulcer prophylaxis: Pantoprazole IV PT/OT notes: PT/OT pending Disposition: patient remains admitted to IMU will continue to wean oxygen as tolerated plan for barium swallow for dysphagia currently with Dobbhoff placed for feeding hydronephrosis improving plan for Nephrostomy tube 10/12/2024. Barium swallow tomorrow pending swallow evaluation discussion for peg tube if he fails. Advance care planning discussion with family Subjective Date/time seen: 10/13/24 17:23 Interval history: Resting quietly / son at bedside Patient just returned from urology labs had a nephrostomy tube place to drain, patient is quite somnolent and unable to provide any ROS or details, a family friend present in the room, later in the afternoon I went and spoke with patient daughter and gave updates on patient condition, also discuss with the daughter and and his , they both have agreed to change the code to DNR, as patient is elderly and frail. patient has several chronic illness and his quality of life is less likely to improve and discuss possible hospice for the patient. family will discuss with hospice team and further Review of Systems Review of Systems: ROS unobtainable: Yes unobtainable due to mental status Exam Narrative: Elderly frail chronically ill Patient is comfortable, NAD HEENT: eyes are clear and none icteric LUNGS:CTA HEART: RR S1S2 ABD: BS+, Soft and nontender Lower extremities: no edema SKIN: nonjaundiced Neuro: grossly intact. Objective Data Vital Signs Vital Signs: Vital Signs - 24 hr 10/12/24 18:00 10/12/24 18:16 10/12/24 20:00 Temperature 36.4 C L Pulse Rate 93 99 102 H Respiratory Rate 15 26 H Blood Pressure 137/73 Pulse Oximetry 99 96 Oxygen Delivery High Flow Nasal Cannula Oxygen Flow Rate 2 Fraction of Inspired Oxygen 10/12/24 20:00 10/12/24 20:00 10/12/24 22:00 Temperature Pulse Rate 95 94 Respiratory Rate Blood Pressure Pulse Oximetry 96 Oxygen Delivery High Flow Nasal Cannula Oxygen Flow Rate 2 Fraction of Inspired Oxygen 10/12/24 23:36 10/13/24 00:00 10/13/24 00:00 Temperature 36.4 C Pulse Rate 108 H 91 Respiratory Rate 26 H Blood Pressure 138/73 Pulse Oximetry 97 99 Oxygen Delivery High Flow Nasal Cannula Oxygen Flow Rate 2 Fraction of Inspired Oxygen 10/13/24 02:00 10/13/24 03:37 10/13/24 04:00 Temperature 36.4 C Pulse Rate 93 92 Respiratory Rate 26 H Blood Pressure 136/54 L Pulse Oximetry 91 92 Oxygen Delivery High Flow Nasal Cannula Oxygen Flow Rate 2 Fraction of Inspired Oxygen 10/13/24 04:00 10/13/24 06:00 10/13/24 08:00 Temperature 36.9 C Pulse Rate 97 104 H 94 Respiratory Rate 24 H Blood Pressure 138/74 Pulse Oximetry 91 Oxygen Delivery Oxygen Flow Rate Fraction of Inspired Oxygen 10/13/24 08:00 10/13/24 09:20 10/13/24 10:00 Temperature Pulse Rate 88 98 Respiratory Rate Blood Pressure Pulse Oximetry 100 Oxygen Delivery High Flow Therapy with Na Oxygen Flow Rate 2 Fraction of Inspired Oxygen 28 10/13/24 12:00 10/13/24 12:00 10/13/24 12:00 Temperature 36.6 C Pulse Rate 102 H 126 H Respiratory Rate 24 H Blood Pressure 153/73 H Pulse Oximetry 98 94 Oxygen Delivery High Flow Therapy with Na Oxygen Flow Rate 2 Fraction of Inspired Oxygen 10/13/24 14:00 10/13/24 16:00 Temperature 36.9 C Pulse Rate 97 100 Respiratory Rate 24 H Blood Pressure 147/76 H Pulse Oximetry 97 Oxygen Delivery Oxygen Flow Rate Fraction of Inspired Oxygen Intake/Output Intake/Output: Intake & Output 10/10/24 10/11/24 10/12/24 10/13/24 23:59 23:59 23:59 23:59 Intake Total 1388.1 1248.0 2968.4 1093.6 Output Total 1000 1275 1700 900 Balance 388.1 -27.0 1268.4 193.6 Meds/Results Medications: Active Medications Generic Name Dose Route Start Last Admin Trade Name Freq PRN Reason Stop Dose Admin Acetaminophen 650 mg 10/08/24 06:42 Acetaminophen 325 Mg Tablet PO Q4H PRN Mild Pain (1-3) or Fever Diltiazem HCl 30 mg 10/10/24 18:55 10/13/24 12:41 Diltiazem Hcl 30 Mg Tablet FEED TUBE 30 mg Q6HR AN Administration Guaifenesin 200 mg 10/12/24 14:28 Guaifenesin 200 Mg/10 Ml Udc FEED TUBE Q4H PRN Cough Heparin Sodium (Porcine) 5,000 units 10/10/24 12:35 10/13/24 08:48 Heparin Sodium 5,000 Units/Ml Vial IV PUSH 5,000 units PRN PRN Administration aPTT less than 55 seconds Heparin Sodium (Porcine) 2,500 units 10/10/24 12:36 10/11/24 10:29 Heparin Sodium 5,000 Units/Ml Vial IV PUSH 2,500 units PRN PRN Administration aPTT 55 - 70 seconds Heparin Sodium/Dextrose 25,000 units in 250 mls @ 16 mls/hr 10/10/24 12:35 10/13/24 15:49 Heparin Sodium/D5w 100 Units/Ml IV CONT Not Given .[id number] AN Protocol 1,600 UNITS/HR Linezolid 600 mg 10/12/24 21:00 10/13/24 08:47 Linezolid 600 Mg Tablet FEED TUBE 600 mg Q12HR AN Administration Ondansetron HCl 4 mg 10/09/24 10:01 Ondansetron Inj 4 Mg/2 Ml Vial IV PUSH ONCE PRN Nausea Pantoprazole Sodium 40 mg 10/13/24 09:00 10/13/24 08:47 Pantoprazole Sodium Iv 40 Mg Vial IV PUSH 40 mg QAM AN Administration Radiology Results: ITS Impressions Venous Doppler Study 10/08/24 15:09 IMPRESSION: Bilateral deep vein thrombosis. Fluoroscopy 10/09/24 12:46 IMPRESSION: 1. Fluoroscopy utilized during attempted cystogram. See procedure note for further detail. Chest X-Ray 10/11/24 07:35 IMPRESSION: Bibasilar opacification suggestive of atelectasis versus pneumonia with right pleural effusion. Abdomen/Pelvis CT 10/11/24 19:22 IMPRESSION: Bibasilar atelectasis/consolidation and bilateral pleural effusions. A feeding tube terminates in the stomach. Stable severe left and recurrent mild-moderate right hydronephrosis. Small fluid and gas collection anterior to the urinary bladder likely representing the site of prior rupture, the tip of the current Ayala catheter terminates in this region and may be extraluminal. Increasing size of the bilateral fluid and gas collections adjacent to the urinary bladder, may represent large bladder diverticula. Possible cystitis. Increasing, mild ascites. Nephrostomy Tube Placement 10/12/24 16:58 IMPRESSION: 1. Successful CT-guided left percutaneous nephrostomy tube placement with tube in expected position with formed loop in the left renal pelvis. The catheter will be managed by Dr. Nice. 2. 50 mL of clear pale straw-colored fluid was aspirated and sent to the lab for Gram stain and cultures. Modified Barium Swallow 10/13/24 13:09 IMPRESSION: Oropharyngeal dysphagia with laryngeal penetration and aspiration. Please correlate with speech pathologist findings and specific feeding recommendations. Labs Labs: Laboratory Results - last 24 hr 10/12/24 10/13/24 10/13/24 17:42 04:37 07:57 WBC 6.2 RBC 3.60 L Hgb 11.0 L Hct 36.7 L MCV 101.9 H MCH 30.6 MCHC 30.0 L RDW 14.4 Plt Count 200 MPV 10.1 Immature Gran % (Auto) 1.1 H Neut % (Auto) 78.6 H Lymph % (Auto) 11.7 L [place] % (Auto) 6.8 Eos % (Auto) 1.3 Baso % (Auto) 0.5 Lymph # (Auto) 0.72 L [place] # (Auto) 0.4 Eos # (Auto) 0.1 Baso # (Auto) 0.0 Abs Immat Gran (auto) 0.07 H Absolute Neuts (auto) 4.9 Absolute Nucleated RBC 0.000 Nucleated RBC % 0.0 APTT 25.7 Sodium 147 H Potassium 3.7 Chloride 115 H Carbon Dioxide 23 Anion Gap 9 BUN 33 H Creatinine 0.88 Estim Creat Clear Calc 45 Estimated GFR > 60 Glucose 110 POC Capillary Glucose 113 H Calcium 8.9 Phosphorus 1.2 L Magnesium 2.3 Total Bilirubin 0.5 AST 66 H ALT 32 Alkaline Phosphatase 110 Total Protein 6.0 L Albumin 2.9 L 10/13/24 10/13/24 11:19 15:01 WBC 7.4 RBC 3.52 L Hgb 10.6 L Hct 33.9 L MCV 96.3 D MCH 30.1 MCHC 31.3 L RDW 14.2 Plt Count 211 MPV 10.0 Immature Gran % (Auto) Neut % (Auto) Lymph % (Auto) [place] % (Auto) Eos % (Auto) Baso % (Auto) Lymph # (Auto) [place] # (Auto) Eos # (Auto) Baso # (Auto) Abs Immat Gran (auto) Absolute Neuts (auto) Absolute Nucleated RBC Nucleated RBC % APTT 112.4 H Sodium Potassium Chloride Carbon Dioxide Anion Gap BUN Creatinine Estim Creat Clear Calc Estimated GFR Glucose POC Capillary Glucose 117 H Calcium Phosphorus Magnesium Total Bilirubin AST ALT Alkaline Phosphatase Total Protein Albumin Quality VTE Prophylaxis VTE prophylaxis: pharmacologic ordered
[2024-10-13 18:35] LABS: Glucose Point of Care 121 mg/dl (65-105)
[2024-10-13] MEDS: HEPARIN SOD/D5W 100 UNITS/ML 25,000 UNITS/250 ML BAG 16 UNITS IV CONT (20:47)
--- NOTE | 2024-10-13 23:19 | PM.EVENT ---
Event Note Event Note Event Note: I received a call from the patient's nurse this evening. He was recently started on heparin drip for bilateral lower extremity DVTs and he is now having epistaxis, increasing hematuria, and bloody drainage from his nephrostomy tube. Orders given to hold heparin drip for now and continue to monitor nephrostomy tube output closely and alert Urology with any complications. The patient needs to be on strict bed rest as to not mobilize his DVTs. It is my understanding that he is to meet with hospice tomorrow. However if he elects to continue treatment, surgery will likely need to be consulted for IVC filter.
[2024-10-14] VITALS (22 sets, daily range): BP systolic 126–143; BP diastolic 58–78; PULSE 92–125; RESP 19–28; TEMP 36.4–37.1; O2SAT 92–100
[2024-10-14 00:52] LABS: Glucose Point of Care 128 mg/dl (65-105)
[2024-10-14] MEDS: dilTIAZem HCL 30 MG TABLET FEED TUBE (01:00)
[2024-10-14] MEDS: LEVALBUTEROL NEB 1.25 MG/3 ML INHALATION (04:03)
[2024-10-14 04:45] LABS: Partial Thromboplastin Time 26.3 Seconds (22.3-36.8)
[2024-10-14] MEDS: METOPROLOL TARTRATE INJ 5 MG/5 ML VIAL 2.5 MG IV PUSH ×2 (05:45→13:44)
[2024-10-14 06:43] LABS: Anion Gap 7 mmol/L (4-12); Blood Urea Nitrogen 35 mg/dL (9-20); Calcium 8.6 mg/dL (8.4-10.2); Carbon Dioxide 22 mmol/L (22-30); Chloride 115 mmol/L (98-107); Estimated CRCL calculation 49 ml/min; Estimated Glomerular Filt Rate > 60; Glucose 80 mg/dL (65-110); Potassium 4.2 mmol/L (3.4-5.0); Sodium 144 mmol/L (137-145)
[2024-10-14 06:53] LABS: Hematocrit 33.2 % (42.0-52.0); Hemoglobin 9.7 g/dL (14.0-18.0); Mean Corpuscular HGB Conc 29.2 g/dl (32-36); Mean Corpuscular Hemoglobin 30.2 pg (26-34); Mean Corpuscular Volume 103.4 fl (80-100); Mean Platelet Volume 9.9 fl (7.4-10.4); Platelet Count Result 219 k/mm3 (150-375); Red Blood Count 3.21 M/mm3 (4.6-6.20); Red Cell Distribution Width 14.1 % (11.5-14.5); White Blood Count 8.9 K/mm3 (4.5-10.0)
[2024-10-14 07:33] LABS: Glucose Point of Care 88 mg/dl (65-105)
[2024-10-14] MEDS: PANTOPRAZOLE SODIUM IV 40 MG VIAL IV PUSH (09:12)
[2024-10-14 11:44] LABS: Glucose Point of Care 86 mg/dl (65-105)
--- NOTE | 2024-10-14 13:19 | PC.NURSE ---
[employer] representative at bedside.
--- NOTE | 2024-10-14 13:21 | PC.NURSE ---
Plan of care reviewed with Dr. Crocker and [employer] customer sales representative. Family at bedside discussing future plan of care.
--- NOTE | 2024-10-14 13:30 | PC.NURSE ---
Dr. Crocker notified of heart rate between 120-140 beats/ minute. Metoprolol IVP ordered.
--- NOTE | 2024-10-14 13:51 | PC.NURSE ---
[employer] sales representative at bedside, family decided to transition patient to [facility].
--- NOTE | 2024-10-14 15:25 | PCSTNOTE ---
Attempted therapy for swallow treatment. Patient resting with family present at bedside. Family indicated they would prefer to not disturb patient and indicated they plan to go home tomorrow so feel the treatment would be of limited benefit. No treatment per family request.
[2024-10-14 15:42] LABS: Glucose Point of Care 95 mg/dl (65-105)
--- NOTE | 2024-10-14 18:55 | P.PNIM_ITS ---
Progress Note: A&P Assessment and Plan (1) Acute hypoxemic respiratory failure: Code(s): J96.01 - Acute respiratory failure with hypoxia Status: Acute Assessment and Plan: Patient was on room air on admission but quickly developed hypoxia requiring nonrebreather then bipap. CXR showing minimal right pleural effusion with mild bibasilar chronic interstitial change or interstitial edema. CT Abd showing a 5 mm right middle lobe nodule and moderate right pleural effusion. Possible multifocal possible aspiration, PE patient had been off his warfarin had not yet started his Eliquis now present with DVTs, pneumonia, and CHF. * On abx for possible PNA but felt less likely. normal WBC and remains afebrile. Transitioned to PO Linezolid * He was weaned off BiPAP and switched to HFNC. Able to wean to 3L. looks like he was increased overnight back to 6 L this is likely due to increased mucous production has cough with thick secretions suction at bedside and added guaifenesin per tube * Wean off O2 as tolerated. * CTA may be beneficial to determine if patient has PE and degree but with his renal issues it will need to be deferred. Heparin Gtt and echo did not show right heart strain (2) Sepsis: Code(s): A41.9 - Sepsis, unspecified organism Status: Acute Assessment and Plan: Patient has developed symptoms of severe sepsis with tachycardia, hypoxia, PIO, and HoTN. Clinically patient with poor perfusion BP better now. [place] related to peritonitis from bladder perforation, urine in abd cavity and Enterococcus UTI. BCx growing GPC in chains in one aerobic bottle. * UCx growing pansensitive Enterococcus * Normal WBC * D/C Zosyn. switched to Linezolid per tube based on cultures. * Repeat BCx. NGTD 48Qhrs (3) Extraperitoneal rupture of bladder: Code(s): N32.89 - Other specified disorders of bladder Status: Acute Assessment and Plan: CT abd/pelvis concerning for bladder perforation. CR cystogram showing Ayala catheter balloon appears to extend beyond the anterior margin of the bladder wall. Contrast extravasates from the anterior bladder, more apparent on prone images, compatible with extraperitoneal bladder rupture. There are large bilateral bladder diverticula, which are prominently distended with urine, and filled with administered contrast. Moderate abdominopelvic ascites, possible urinary ascites again present. Severe bilateral hydronephrosis noted. Ayala was placed and urology consulted. * Repeat CT scan showing right hydronephrosis better but persistent left hydronephrosis. Small amount of of abdominopelvic ascites. * Unable to place left ureteral stent so plan was for left nephrostomy tube planned for today 10/12/2024 * Heparin drip resumed * Monitor UOP and renal function. Appreciate urology input * Will need Ayala for 4-6 weeks and placement of left ureteral stent once infectious process has cleared (4) UTI (urinary tract infection): Code(s): N39.0 - Urinary tract infection, site not specified Status: Acute Assessment and Plan: * UA with UCx on 10/06 growing 100K colonies of maurice-sensitive enterococcus. * BCx NGTD Q24hr * Repeat UCx also growing maurice-sensitive Enterococcus. * D/C Zosyn transitioned to oral Linezolid per tube. (5) Peritonitis: Code(s): K65.9 - Peritonitis, unspecified Status: Acute Assessment and Plan: SEE ABOVE (6) Bilateral hydronephrosis: Code(s): N13.30 - Unspecified hydronephrosis Status: Acute Assessment and Plan: As above (7) Liver mass: Code(s): R16.0 - Hepatomegaly, not elsewhere classified Status: Acute Assessment and Plan: CT scan also showing an extremely large lobulated mildly heterogeneous mass probably arising from the inferior right hepatic lobe and extending inferiorly, measuring 16.7 x 11.0 x 14.5 cm in size. * LFTs are okay monitor daily * He does have a hx of basal cell. Will plan for further evaluation this admission or as outpatient (8) Paroxysmal atrial fibrillation: Code(s): I48.0 - Paroxysmal atrial fibrillation Status: Acute Assessment and Plan: Patient developed AFib/RVR in the ED. Probably chronic AFib (EKG on 09/29/24 and in 2019 show AFib) prior to admission, he was being transitioned from Warfarin to Eliquis but had not started his Eliquis yet INR was 1.1 POA. received metoprolol 5mg IV once then Diltiazem 10mg IV once before starting Diltiazem 5mg/hr drip. * Rate better controlled. Continue Oral Diltiazem * Continue to Monitor on tele. (9) DVT (deep venous thrombosis): Code(s): I82.409 - Acute embolism and thrombosis of unspecified deep veins of unspecified lower extremity Status: Acute Assessment and Plan: LE venous dopplers showing: RLE with peroneal and posterior tibial DVT. LLE with popliteal, posterior tibial and peroneal DVT. potentially PE contributing to patient's hypoxia as well * Continue Heparin Gtt while NPO can hopefully transitioned to Eliquis pending swallow evaluation (10) Stage III chronic kidney disease: Code(s): N18.3 - Chronic kidney disease, stage 3 (moderate) Status: Acute Assessment and Plan: As above (11) Memory deficit: Code(s): R41.3 - Other amnesia Status: Acute Assessment and Plan: Patient has a hx of memory issues and was started on Nam[place] recently * Continue to hold for now but resume when more stable (12) Hypokalemia: Code(s): E87.6 - Hypokalemia Status: Acute Assessment and Plan: patient initially with hyperkalemia on admission however currently today he is 3.3 a 40 mEq IV * serial CMPs replenish as needed keep K+ >4.0 * patient currently on cardiac monitoring (13) Hypernatremia: Code(s): E87.0 - Hyperosmolality and hypernatremia Status: Acute Assessment and Plan: patient hypernatremic at 150 a.m. today likely secondary to tube feedings * increased free water flushes from 75-150 q.6 * serial sodium levels (14) Acute kidney injury: Code(s): N17.9 - Acute kidney failure, unspecified Status: Resolved Assessment and Plan: Patient with PIO with Cr 4.7 and BUN 71. He has had normal baseline Cr last year but 1.3-1.6 earlier this year. May have been developing this urine retention over time resulting in the increasing Cr. Elevated Cr related to urine in the pelvis as well. Cr continued to trend down 1.13 today appears resolved. * Monitor UOP, renal function and electrolytes (15) Hyperkalemia: Code(s): E87.5 - Hyperkalemia Status: Resolved Assessment and Plan: Potassium 6.5 on admission felt related to PIO and possibly re-absorption from urine in the pelvis. EKG showing no peaked T waves. Hyperkalemia treated appropriately Potassium normal and remaining normal. Follow. (16) Dysphagia: Code(s): R13.10 - Dysphagia, unspecified Status: Acute Assessment and Plan: Patient with possible aspiration PNA, difficulty swallowing with respiratory failure with hypoxia. Dobhoff had been placed and he is currently getting tube feeds was continued due to alert mental status but since has improved. * Barium scheduled for tomorrow/speech consulted * spoke with patient about potential need for peg tube if patient fails multiple barium swallows. (17) Protein-calorie malnutrition, severe: Code(s): E43 - Unspecified severe protein-calorie malnutrition Status: Acute Assessment and Plan: Failure to thrive could be secondary to liver mass pending evaluation. Currently on tube feedings per dobhoff barium swallow 10/13/2024 * Tube feeds * consulted wood gang sawyer * if able to eat post evaluation would add ensure to every meal Plan Patient just returned from urology labs had a nephrostomy tube place to drain, patient is quite somnolent and unable to provide any ROS or details, a family friend present in the room, later in the afternoon I went and spoke with patient daughter and gave updates on patient condition, also discuss with the daughter and and his , they both have agreed to change the code to DNR, as patient is elderly and frail. patient has several chronic illness and his quality of life is less likely to improve and discuss possible hospice for the patient. family will discuss with hospice team and further. Today patient's family is present including a family friend, again discussed about hospice and family has agreed to consult the hospice team. family has question regarding feeding tube, as patient as pulled out his Dobbhoff, instructed to discuss this with hospice provider. plan is to discharge patient home tomorrow and patient will be admitted under hospice as a outpatient. Code status: Full code per patient DVT prophylaxis: Heparin gtt Stress ulcer prophylaxis: Pantoprazole IV PT/OT notes: PT/OT pending Disposition: patient remains admitted to IMU will continue to wean oxygen as tolerated plan for barium swallow for dysphagia currently with Dobbhoff placed for feeding hydronephrosis improving plan for Nephrostomy tube 10/12/2024. Barium swallow tomorrow pending swallow evaluation discussion for peg tube if he fails. Advance care planning discussion with family Subjective Date/time seen: 10/14/24 18:55 Interval history: Resting quietly / son at bedside Patient just returned from urology labs had a nephrostomy tube place to drain, patient is quite somnolent and unable to provide any ROS or details, a family friend present in the room, later in the afternoon I went and spoke with patient daughter and gave updates on patient condition, also discuss with the daughter and and his , they both have agreed to change the code to DNR, as patient is elderly and frail. patient has several chronic illness and his quality of life is less likely to improve and discuss possible hospice for the patient. family will discuss with hospice team and further Today patient's family is present including a family friend, again discussed about hospice and family has agreed to consult the hospice team. family has question regarding feeding tube, as patient as pulled out his Dobbhoff, instructed to discuss this with hospice provider. plan is to discharge patient home tomorrow and patient will be admitted under hospice as a outpatient. Review of Systems Review of Systems: ROS unobtainable: Yes unobtainable due to mental status Exam Narrative: Elderly frail chronically ill Patient is comfortable, NAD HEENT: eyes are clear and none icteric LUNGS:CTA HEART: RR S1S2 ABD: BS+, Soft and nontender Lower extremities: no edema SKIN: nonjaundiced Neuro: grossly intact. Objective Data Vital Signs Vital Signs: Vital Signs - 24 hr 10/13/24 20:00 10/13/24 20:00 10/13/24 20:00 Temperature 36.3 C L Pulse Rate 95 86 Respiratory Rate 24 H Blood Pressure 130/66 Pulse Oximetry 91 100 Oxygen Delivery High Flow Therapy with Na Oxygen Flow Rate 4 10/13/24 22:00 10/13/24 23:28 10/13/24 23:30 Temperature 36.4 C Pulse Rate 97 97 Respiratory Rate 24 H Blood Pressure 145/72 H Pulse Oximetry 100 100 Oxygen Delivery Room Air Oxygen Flow Rate 10/14/24 00:00 10/14/24 00:00 10/14/24 02:00 Temperature Pulse Rate 104 H 101 H Respiratory Rate Blood Pressure Pulse Oximetry 92 Oxygen Delivery Room Air Oxygen Flow Rate 10/14/24 03:55 10/14/24 04:00 10/14/24 04:00 Temperature 37.1 C Pulse Rate 102 H 109 H Respiratory Rate 22 H Blood Pressure 132/58 L Pulse Oximetry 95 92 Oxygen Delivery Room Air Oxygen Flow Rate 10/14/24 04:05 10/14/24 04:08 10/14/24 04:13 Temperature Pulse Rate 97 105 H Respiratory Rate 19 19 Blood Pressure Pulse Oximetry 96 Oxygen Delivery Nasal Cannula Oxygen Flow Rate 2 10/14/24 05:19 10/14/24 05:45 10/14/24 06:00 Temperature Pulse Rate 124 H 120 H Respiratory Rate Blood Pressure 136/74 Pulse Oximetry Oxygen Delivery Oxygen Flow Rate 10/14/24 08:00 10/14/24 08:00 10/14/24 08:06 Temperature 36.7 C Pulse Rate 125 H 97 97 Respiratory Rate 24 H 24 H Blood Pressure 139/58 L Pulse Oximetry 96 99 Oxygen Delivery High Flow Therapy with Na Oxygen Flow Rate 2 10/14/24 08:54 10/14/24 10:00 10/14/24 11:46 Temperature 36.7 C Pulse Rate 118 H 104 H Respiratory Rate 24 H Blood Pressure 130/75 Pulse Oximetry 96 100 Oxygen Delivery Nasal Cannula Oxygen Flow Rate 2 10/14/24 12:00 10/14/24 12:00 10/14/24 12:20 Temperature Pulse Rate 106 H 106 H 116 H Respiratory Rate 24 H 24 H Blood Pressure Pulse Oximetry 96 99 Oxygen Delivery High Flow Therapy with Na Room Air Oxygen Flow Rate 2 10/14/24 13:44 10/14/24 14:00 10/14/24 15:48 Temperature 36.4 C Pulse Rate 123 H 97 121 H Respiratory Rate 28 H Blood Pressure 143/58 H Pulse Oximetry 96 Oxygen Delivery Oxygen Flow Rate Intake/Output Intake/Output: Intake & Output 10/11/24 10/12/24 10/13/24 10/14/24 23:59 23:59 23:59 23:59 Intake Total 1248.0 2968.4 2367.6 479 Output Total 1275 1700 1575 420 Balance -27.0 1268.4 792.6 59 Meds/Results Medications: Active Medications Generic Name Dose Route Start Last Admin Trade Name Freq PRN Reason Stop Dose Admin Ondansetron HCl 4 mg 10/09/24 10:01 Ondansetron Inj 4 Mg/2 Ml Vial IV PUSH ONCE PRN Nausea Pantoprazole Sodium 40 mg 10/13/24 09:00 10/14/24 09:12 Pantoprazole Sodium Iv 40 Mg Vial IV PUSH 40 mg QAM AN Administration Radiology Results: ITS Impressions Venous Doppler Study 10/08/24 15:09 IMPRESSION: Bilateral deep vein thrombosis. Fluoroscopy 10/09/24 12:46 IMPRESSION: 1. Fluoroscopy utilized during attempted cystogram. See procedure note for further detail. Chest X-Ray 10/11/24 07:35 IMPRESSION: Bibasilar opacification suggestive of atelectasis versus pneumonia with right pleural effusion. Abdomen/Pelvis CT 10/11/24 19:22 IMPRESSION: Bibasilar atelectasis/consolidation and bilateral pleural effusions. A feeding tube terminates in the stomach. Stable severe left and recurrent mild-moderate right hydronephrosis. Small fluid and gas collection anterior to the urinary bladder likely representing the site of prior rupture, the tip of the current Ayala catheter t erminates in this region and may be extraluminal. Increasing size of the bilateral fluid and gas collections adjacent to the urinary bladder, may represent large bladder diverticula. Possible cystitis. Increasing, mild ascites. Nephrostomy Tube Placement 10/12/24 16:58 IMPRESSION: 1. Successful CT-guided left percutaneous nephrostomy tube placement with tube in expected position with formed loop in the left renal pelvis. The catheter will be managed by Dr. Nice. 2. 50 mL of clear pale straw-colored fluid was aspirated and sent to the lab for Gram stain and cultures. Modified Barium Swallow 10/13/24 13:09 IMPRESSION: Oropharyngeal dysphagia with laryngeal penetration and aspiration. Please correlate with speech pathologist findings and specific feeding recommendations. Labs Labs: Laboratory Results - last 24 hr 10/13/24 10/14/24 10/14/24 21:26 00:48 03:42 WBC RBC Hgb Hct MCV MCH MCHC RDW Plt Count MPV APTT 92.0 H 26.3 Sodium 144 Potassium 4.2 Chloride 115 H Carbon Dioxide 22 Anion Gap 7 BUN 35 H Creatinine 0.78 Estim Creat Clear Calc 49 Estimated GFR > 60 Glucose 80 POC Capillary Glucose 128 H Calcium 8.6 10/14/24 10/14/24 10/14/24 06:48 07:31 11:29 WBC 8.9 RBC 3.21 L Hgb 9.7 L Hct 33.2 L MCV 103.4 H D MCH 30.2 MCHC 29.2 L RDW 14.1 Plt Count 219 MPV 9.9 APTT Sodium Potassium Chloride Carbon Dioxide Anion Gap BUN Creatinine Estim Creat Clear Calc Estimated GFR Glucose POC Capillary Glucose 88 86 Calcium 10/14/24 15:39 WBC RBC Hgb Hct MCV MCH MCHC RDW Plt Count MPV APTT Sodium Potassium Chloride Carbon Dioxide Anion Gap BUN Creatinine Estim Creat Clear Calc Estimated GFR Glucose POC Capillary Glucose 95 Calcium Quality VTE Prophylaxis VTE prophylaxis: pharmacologic ordered
--- NOTE | 2024-10-14 20:50 | PC.NURSE ---
2049: Patient transferred to [facility].
[2024-10-15 06:06] VITALS: BP 132/81; PULSE 96; RESP 18; TEMP 36.8; O2SAT 98
--- NOTE | 2024-10-15 06:42 | P.PNUR_ITS ---
Progress Note: A&P Assessment and Plan (1) Hydronephrosis, left: Code(s): N13.30 - Unspecified hydronephrosis Status: Acute (2) Bladder rupture: Code(s): N32.89 - Other specified disorders of bladder Status: Acute Assessment and Plan: * Pt. comfortable with left nephrostomy / continues to drain well although urine is grossly bloody.. * Mgmt. of extraperitoneal bladder rupture will consist of catheter drainage with repeat cystogram in 4-6 weeks. Typically, extraperitoneal ruptures will heal spontaneously. * Left hydronephrosis will require, at some point, attempt to internalize a left ureteral stent (antegrade, thru nephrostomy tube) and pyelogram/ureteroscopy. With indwelling nephrostomy this isn't urgent and can be addressed in the future, once more medically stable. 10/15/24 * Ayala catheter and left nephrostomy continue to drain well * From standpoint, no plans for additional acute intervention Subjective Subjective Date/Time Seen: 10/15/24 06:42 Interval history: Resting quietly / son at bedside Review of Systems Review of Systems: ROS unobtainable: Yes unobtainable due to mental status Exam Const: General: no acute distress Resp: Effort & Inspection: normal respiratory effort GI: Inspection: non-distended GI Palp: No abdominal tenderness and No Guarding due to palpation present (GI) Auscultation: normal bowel sounds Urinary Catheter: Urinary Catheter: urine clear and other (left nephrostomy dark red urine /draining freely) Objective Data Vital Signs Vital Signs: Vital Signs - 24 hr 10/14/24 08:00 10/14/24 08:00 10/14/24 08:06 Temperature 98.0 F Pulse Rate 125 H 97 97 Respiratory Rate 24 H 24 H Blood Pressure 139/58 L Pulse Oximetry 96 99 Oxygen Delivery High Flow Therapy with Na Oxygen Flow Rate 2 10/14/24 08:54 10/14/24 10:00 10/14/24 11:46 Temperature 98.0 F Pulse Rate 118 H 104 H Respiratory Rate 24 H Blood Pressure 130/75 Pulse Oximetry 96 100 Oxygen Delivery Nasal Cannula Oxygen Flow Rate 2 10/14/24 12:00 10/14/24 12:00 10/14/24 12:20 Temperature Pulse Rate 106 H 106 H 116 H Respiratory Rate 24 H 24 H Blood Pressure Pulse Oximetry 96 99 Oxygen Delivery High Flow Therapy with Na Room Air Oxygen Flow Rate 2 10/14/24 13:44 10/14/24 14:00 10/14/24 15:48 Temperature 97.6 F Pulse Rate 123 H 97 121 H Respiratory Rate 28 H Blood Pressure 143/58 H Pulse Oximetry 96 Oxygen Delivery Oxygen Flow Rate 10/14/24 20:00 10/14/24 21:31 10/15/24 06:06 Temperature 98.1 F 98.2 F Pulse Rate 92 96 Respiratory Rate 20 18 Blood Pressure 126/78 132/81 Pulse Oximetry 96 96 98 Oxygen Delivery High Flow Therapy with Na Oxygen Flow Rate 2 Intake/Output Intake/Output: Intake & Output 10/12/24 10/13/24 10/14/24 10/15/24 23:59 23:59 23:59 23:59 Intake Total 2968.4 2367.6 479 Output Total 1700 1575 420 300 Balance 1268.4 792.6 59 -300 Meds/Results Medications: Active Medications Generic Name Dose Route Start Last Admin Trade Name Freq PRN Reason Stop Dose Admin Ondansetron HCl 4 mg 10/09/24 10:01 Ondansetron Inj 4 Mg/2 Ml Vial IV PUSH ONCE PRN Nausea Pantoprazole Sodium 40 mg 10/13/24 09:00 10/14/24 09:12 Pantoprazole Sodium Iv 40 Mg Vial IV PUSH 40 mg QAM AN Administration Radiology Results: ITS Impressions Venous Doppler Study 10/08/24 15:09 IMPRESSION: Bilateral deep vein thrombosis. Fluoroscopy 10/09/24 12:46 IMPRESSION: 1. Fluoroscopy utilized during attempted cystogram. See procedure note for further detail. Chest X-Ray 10/11/24 07:35 IMPRESSION: Bibasilar opacification suggestive of atelectasis versus pneumonia with right pleural effusion. Abdomen/Pelvis CT 10/11/24 19:22 IMPRESSION: Bibasilar atelectasis/consolidation and bilateral pleural effusions. A feeding tube terminates in the stomach. Stable severe left and recurrent mild-moderate right hydronephrosis. Small fluid and gas collection anterior to the urinary bladder likely representi ng the site of prior rupture, the tip of the current Ayala catheter terminates in this region and may be extraluminal. Increasing size of the bilateral fluid and gas collections adjacent to the urinary bladder, may represent large bladder diverticula. Possible cystitis. Increasing, mild ascites. Nephrostomy Tube Placement 10/12/24 16:58 IMPRESSION: 1. Successful CT-guided left percutaneous nephrostomy tube placement with tube in expected position with formed loop in the left renal pelvis. The catheter will be managed by Dr. Nice. 2. 50 mL of clear pale straw-colored fluid was aspirated and sent to the lab for Gram stain and cultures. Modified Barium Swallow 10/13/24 13:09 IMPRESSION: Oropharyngeal dysphagia with laryngeal penetration and aspiration. Please correlate with speech pathologist findings and specific feeding recommendations. Labs Labs: Laboratory Results - last 24 hr 10/14/24 10/14/24 10/14/24 03:42 06:48 07:31 WBC 8.9 RBC 3.21 L Hgb 9.7 L Hct 33.2 L MCV 103.4 H D MCH 30.2 MCHC 29.2 L RDW 14.1 Plt Count 219 MPV 9.9 Sodium 144 Potassium 4.2 Chloride 115 H Carbon Dioxide 22 Anion Gap 7 BUN 35 H Creatinine 0.78 Estim Creat Clear Calc 49 Estimated GFR > 60 Glucose 80 POC Capillary Glucose 88 Calcium 8.6 10/14/24 10/14/24 11:29 15:39 WBC RBC Hgb Hct MCV MCH MCHC RDW Plt Count MPV Sodium Potassium Chloride Carbon Dioxide Anion Gap BUN Creatinine Estim Creat Clear Calc Estimated GFR Glucose POC Capillary Glucose 86 95 Calcium
[2024-10-15] MEDS: PANTOPRAZOLE SODIUM IV 40 MG VIAL IV PUSH (07:58)
[2024-10-15 08:00] VITALS: O2SAT 98
--- NOTE | 2024-10-15 11:51 | PM.DS ---
DS: Admitting Diagnosis Discharge Date 10/15/24 Admitting Diagnosis Abdominal pain DS: Discharge Diagnosis Discharge Diagnosis (1) Acute hypoxemic respiratory failure: Code(s): J96.01 - Acute respiratory failure with hypoxia Status: Acute (2) Sepsis: Code(s): A41.9 - Sepsis, unspecified organism Status: Acute (3) Extraperitoneal rupture of bladder: Code(s): N32.89 - Other specified disorders of bladder Status: Acute (4) UTI (urinary tract infection): Code(s): N39.0 - Urinary tract infection, site not specified Status: Acute (5) Paroxysmal atrial fibrillation: Code(s): I48.0 - Paroxysmal atrial fibrillation Status: Acute (6) DVT (deep venous thrombosis): Code(s): I82.409 - Acute embolism and thrombosis of unspecified deep veins of unspecified lower extremity Status: Acute DS: Summary Hospital Course Hospital Course: Patient just returned from urology labs had a nephrostomy tube place to drain, patient is quite somnolent and unable to provide any ROS or details, a family friend present in the room, later in the afternoon I went and spoke with patient daughter and gave updates on patient condition, also discuss with the daughter and and his , they both have agreed to change the code to DNR, as patient is elderly and frail. patient has several chronic illness and his quality of life is less likely to improve and discuss possible hospice for the patient. family will discuss with hospice team and further. Today patient's family is present including a family friend, again discussed about hospice and family has agreed to consult the hospice team. family has question regarding feeding tube, as patient as pulled out his Dobbhoff, instructed to discuss this with hospice provider. plan is to discharge patient home tomorrow and patient will be admitted under hospice as a outpatient. today will discharge patient, patient will be admitted under hospice care at home. Time Spent with Patient Time attestation: Total time spent providing and/or coordinating discharge services: DS: Data Data Completed and Pending Completed studies during hospitalization: Pending at discharge 10/12/24 15:41 Surgical [PTH] Routine Labs on day of discharge: Labs from last 24 hours 10/14/24 15:39 POC Capillary Glucose 95 Preliminary micro results at discharge 10/12/24 15:41 Anaerobic Culture - Preliminary Kidney Left Aerobic Culture - Preliminary 10/11/24 19:43 Blood Culture - Preliminary Blood 10/11/24 19:43 Blood Culture - Preliminary Blood Discharge Plan Discharge Attending physician on discharge: Manoj Tejeda Consulting providers: Rocío Sierra; Alexys Nice; Lisa Herrera; [facility]; Ruben Nickerson; Magdy Sanabria; Modesto Sagastume; Nicolas Salazar; Suresh Lyons; Ricardo Grant; Frank Yang; Caesar Hammer Discharging Clinician: Chris Crocker Patient Disposition: Hospice - Home Activity: as tolerated Diet: as tolerated Discharge Instructions: patient is being discharged home and will be admitted under hospice care Patient Instructions: Antibiotic Form Patient Language: Korean Stand Alone Forms: General Discharge Information Follow-up/Referrals: Hakan Chavez MD [Primary Care Provider] - Discharge Medications: Continued memantine [Namenda] 5 mg tablet 5 mg PO BID Qty: 30 1RF Patient Comments: NEW TO PATIENT STARTED 10/06/2024 metoprolol succinate 25 mg tablet extended release 24 hr 12.5 mg PO DAILY Qty: 30 1RF Patient Comments: NEW TO PATIENT, STARTED ON 10/06/2024 FOR HIGH HEARTRATE AND BLOOD PRESSURE Eliquis 2.5 mg tablet 2.5 mg PO BID Qty: 30 0RF warfarin 6 mg tablet 6 mg PO DAILY Patient Comments: PATIENT STOPPED TAKING ON 10/06/24, PCP [facility] AND TO START ELOQUIS AFTER CBC WAS READ. cephalexin 500 mg capsule 500 mg PO Q12H Patient Comments: STARTED ON 10/07/2024 lovastatin 20 mg tablet See Rx Instructions .ROUTE .COMPLEX Qty: 90 1RF Dose Instruction: TAKE 1 TABLET BY MOUTH EVERY DAY Rx Instructions: TAKE 1 TABLET BY MOUTH EVERY DAY Date of admission: 10/08/24 06:43 Primary Care Provider: Hakan Chavez Admitting Provider: Manoj Tejeda Attending physician on admission: Chris Crocker Condition: Stable
--- NOTE | 2024-10-15 11:53 | PCDIET ---
Pt pulled dobhoff out, tube feedings canceled. Nursing reports pt is going home on hospice care today. No further nutrition recommendations at this time.
[2024-10-15 12:22] VITALS: O2SAT 97
[2024-10-15 14:00] VITALS: BP 138/87; PULSE 131; RESP 22; TEMP 37.3; O2SAT 100
== END 2024-10-15 14:33 | disposition hospice, home (50) | DRG 871 ==
LOC: ANHED 10-08 07:23 → ANHIMU 10-08 08:17 → ANH3MEDSUR 10-15 11:50 → ANHIMU 10-16 08:48
PROVIDERS: General Practice; Internal Medicine; Physician Assistant; Radiology Vascular & Interventional Radiology; Urology; Admitting Provider Internal Medicine; Emergency Provider Emergency Medicine; PCP Family Medicine; Visit Provider Family Medicine
DX: A41.9 Sepsis, unspecified organism (principal); E43 Unspecified severe protein-calorie malnutrition; K65.8 Other peritonitis; J96.01 Acute respiratory failure with hypoxia; J18.9 Pneumonia, unspecified organism; J69.0 Pneumonitis due to inhalation of food and vomit; N39.0 Urinary tract infection, site not specified; N17.9 Acute kidney failure, unspecified; N13.30 Unspecified hydronephrosis; I82.443 Acute embolism and thrombosis of tibial vein, bilateral; I82.453 Acute embolism and thrombosis of peroneal vein, bilateral; I82.432 Acute embolism and thrombosis of left popliteal vein; I48.20 Chronic atrial fibrillation, unspecified; E87.0 Hyperosmolality and hypernatremia; D68.32 Hemorrhagic disorder due to extrinsic circulating anticoagulants; N32.89 Other specified disorders of bladder; R65.20 Severe sepsis without septic shock; R41.3 Other amnesia; B95.2 Enterococcus as the cause of diseases classified elsewhere; E87.5 Hyperkalemia; R13.10 Dysphagia, unspecified; R16.0 Hepatomegaly, not elsewhere classified; E78.5 Hyperlipidemia, unspecified; I50.9 Heart failure, unspecified; N18.30 Chronic kidney disease, stage 3 unspecified; H61.23 Impacted cerumen, bilateral; Z79.01 Long term (current) use of anticoagulants; Z85.828 Personal history of other malignant neoplasm of skin; Z85.89 Personal history of malignant neoplasm of other organs and systems; R62.7 Adult failure to thrive; Z68.20 Body mass index [BMI] 20.0-20.9, adult; R04.0 Epistaxis; T45.515A Adverse effect of anticoagulants, initial encounter; Z66 Do not resuscitate
CPT/HCPCS: 36415; 36600; 43752; 50432; 71045; 74176; 74178; 80048; 80053; 81001; 82550; 82805; 82948; 83605; 83690; 83735; 83880; 84100; 84145; 84484; 85018; 85025; 85027; 85610; 85730; 87040; 87070; 87075; 87086; 87181; 87205; 87641; 88108; 88305; 92610; 92611; 93005; 93970; 94002; 94003; 94640; 96361; 96374; 96375; 99199; 99285; A9270; C1729; C1758; C1769; C8929; J0612; J0696; J1644; J1815; J2020; J2405; J2470; J2543; J2704; J3480; J7030; J7040; Q9957; Q9967